=== PATIENT | female | born 1930 | race Caucasian/White ===

== ENCOUNTER 2017-10-18 21:50 | Inpatient (IN) | payer MEDICARE, MEDICAID ==
--- NOTE | 2017-10-18 22:14 | ED Physician Chart ---
ED Chief Complaint/HPI - Patient Information Date Seen:: 10/18/17 Time Seen:: 21:50 Chief Complaint:: Congestion History of Present Illness:: onset x one day of fever, cough, and congestion with low O2 Sats; no report of trauma, H/As, S/T, C/P, SOB, Abd. Pain, A/N/V/D/C, chills, or urinary s/s Allergies:: Allergies Allergy/AdvReac Type Severity Reaction Status Date / Time No Known Allergies Allergy Verified 08/27/17 22:59 Historian:: Patient, EMS Review:: Nurse's Note Reviewed, Old Chart Reviewed, EMS run form Reviewed ED Review of Systems - Review of Systems General/Constitutional: Fever, No chills, No weight loss, No weakness, No diaphoresis, No edema, No loss of appetite Skin: No skin lesions, No rash, No bruising Head: No headache, No light-headedness Eyes: No loss of vision, No pain, No diplopia ENT: No earache, No nasal drainage, No sore throat, No tinnitus Neck: No neck pain, No swelling, No thyromegaly, No stiffness, No mass noted Cardio Vascular: No chest pain, No palpitations, No PND, No orthopnea, No edema Pulmonary: SOB, Cough, No sputum, No wheezing GI: No nausea, No vomiting, No diarrhea, No pain, No melena, No hematochezia, No constipation, No hematemesis G/U: No dysuria, No frequency, No hematuria, No nacturia 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 discharge, Abnormal vaginal bleeding, No contraction Musculoskeletal: No bone or joint pain, No back pain, No muscle pain Endocrine: No polyuria, No polydipsia Psychiatric: No prior psych history, No depression, No anxiety, No suicidal ideation, No homicidal ideation, No auditory hallucination, No visual hallucination Hematopoietic: No bruising, No lymphadenopathy Allergic/Immuno: No urticaria, No angioedema Neurological: No syncope, No focal symptoms, No weakness, No paresthesia, No headache, No seizure, No dizziness, No confusion, No vertigo ED Past Medical History - Past Medical History Obtainable: Yes Past Medical History: HTN, Asthma/COPD, CVA/TIA, PUD/GERD Family History: Diabetes Melitus, HTN Social History: Non Smoker, No Alcohol, No Drug Use, Single, Care Facility Surgical History: None Psychiatricy History: None Medication: Reviewed Family Medical History - Family Member Mother History Unknown: Yes Ethnicity: Unknown Living Status: Hx Family Cancer: No Hx Family Coronary Artery Disease: No Hx Family Congestive Heart Failure: No Hx Family Hypertension: No Hx Family Stroke: No Hx Family Diabetes: No Hx Family Seizures: No Hx Family Dementia: No Hx Family AIDS: No Hx Family HIV: No Hx Family COPD: No Hx Family Hepatitis: No Hx Family Psychiatric Problems: No Hx Family Tuberculosis: No ED Physical Exam - Physical Examination General/Constitutional: Awake, Well-developed, well-nourished, Alert, No distress, GCS 15, Non-toxic appearing, Ambulatory Head: Atraumatic Eyes: Lids, conjuctiva normal, PERRL, EOMI Skin: Nl inspection, No rash, No skin lesions, No ecchymosis, Well hydrated, No lymphadenopathy ENMT: External ears, nose nl, TM canals nl, Nasal exam nl, Lips, teeth, gums nl , Oropharynx nl, Tonsils nl Neck: Nontender, Full ROM w/o pain, No JVD, No nuchal rigidity, No bruit, No mass, No stridor Respiratory: Nl effort/Exclusion Other Respiratory comments:: Lungs: + Rales and Rhonchi Cardio Vascular: RRR, No murmur, gallop, rubs, NL S1 S2, Carotid/Femoral/Distal pulses equal bilaterally GI: No tenderness/rebounding/guarding, No organomegaly, No hernia, Normal BS's, Nondistended, No mass/bruits, No McBurney tenderness : No CVA tenderness Extremities: No tenderness or effusion, Full ROM, normal strength in all extremities, No edema, Normal digits & nails Neuro/Psych: Alert/oriented, DTR's symmetric, Normal sensory exam, Normal motor strength, Judgement/insight normal, Mood normal, Normal gait, No focal deficits Misc: Normal back, No paraspinal tenderness ED Labs/Radiology/EKG Results - Lab Results Comments:: WBC: 41.1; H/H: + Anemia - Radiology Results Comments:: CXR: + LLL Infiltrate - EKG Interpretations EKG Time:: 22:04 Rate & Rhythm: 124; ST Comments:: non-specific st-t changes ED Septic Shock - . Is Septic Shock (SBP<90, OR Lactate>4 mmol\L) present?: No ED Reassessment (Disposition) - Reassessment Reassessment Condition:: Improved - Diagnosis Diagnosis:: Dx: Pneumonia; Sepsis; Cough; Congestion; Hypoxia; Hypotension; Dehydration; Leukocytosis; Anemi - Aftercare/Follow up Instructions Aftercare/Follow-Up Instructions:: Counseled pt regarding lab results/diagnosis & need follow up, Counseled pt & family regarding lab results/diagnosis & need follow up - Patient Disposition Discharge/Transfer:: Acute Care w/in this hosp Accepting Physician:: Dr. Mcneil Time Called:: [id number] Time Responded:: 22:30 Admitted to:: ICU Spoke to:: Dr. Mcneil Admitting Medical Physician:: Dr. cMneil Condition at Disposition:: Stable, Improved
[2017-10-18] MEDS ORDERED: Levofloxacin 500mg/100mL 500 MG/100 ML BAG IV ONE ×2 (22:15→22:16)
[2017-10-18] MEDS ORDERED: Sodium Chloride 0.9% 1,000 ML IV ONE (22:17)
[2017-10-18 22:21] LABS: HEMOGLOBIN 11.8 gm/dL (12-16); MEAN CELL VOLUME 87.9 fl (81-100); MEAN CORPUSCULAR HGB CONC 34.1 pg (28.0-36.0); MEAN PLATELET VOLUME 8.6 fl; RED BLOOD COUNT 3.92 Mil/cmm (3.80-5.20); RED CELL DISTRIBUTION WIDTH 15.2 % (11.5-20.0)
[2017-10-18 22:22] LABS: WHITE BLOOD COUNT 41.1 Th/cmm (4.8-10.8)
[2017-10-18 22:23] LABS: HEMATOCRIT 34.5 % (41.0-60); PLATELET COUNT 535 Th/cmm (150-400)
[2017-10-18 22:27] LABS: ALLEN TEST POSITIVE; pH 7.51 (7.35-7.45)
[2017-10-18 22:36] LABS: INR 1.1 (0.5-1.4); PROTHROMBIN TIME (TEST) 11.5 SECONDS (9.5-11.5)
[2017-10-18 22:42] LABS: ALB/GLOB RATIO 0.9 (1.0-1.8); ALBUMIN 3.4 gm/dL (3.7-5.3); ALKALINE PHOSPHATASE 66 U/L (34-104); AMYLASE SERUM 36 U/L (29-103); ANION GAP 17.3 (7.0-16.0); BILIRUBIN,TOTAL 0.7 mg/dL (0.3-1.0); BUN - UREA NITROGEN 76 mg/dL (7-25); CALCIUM SERUM 9.9 mg/dL (8.6-10.3); CARBON DIOXIDE 26.4 mEq/L (21.0-31.0); CHLORIDE 96 mEq/L (98-107); CHOLESTEROL 111 mg/dL (<200); CREATININE - SERUM 2.2 mg/dL (0.6-1.2); CREATININE KINASE 136 U/L (30-223); GLUCOSE 179 mg/dL (70-105); HDL -HIGH DENSITY LIPOPROTEIN 37 mg/dL (23-92); LIPASE 6 U/L (11-82); SGOT 19 U/L (13-39); SGPT/ALT 14 U/L (7-52); SODIUM SERUM 134 mEq/L (136-145); TRIGLYCERIDES 130 mg/dL (<150)
[2017-10-18 22:44] LABS: POTASSIUM SERUM 5.7 mEq/L (3.5-5.1)
[2017-10-18 22:50] LABS: TOTAL CELLS COUNTED 100
[2017-10-18 22:51] LABS: BAND NEUTROPHILE 13 % (0-10); LYMPHOCYTE 7 % (20-50); MONOCYTE 1 % (2-10); NEUTROPHILS 79 % (40-80); PLATELET ESTIMATE INCREASED PLATELETS (NORMAL)
[2017-10-19] MEDS ORDERED: Sodium Chloride 0.9% 1,000 ML IV ONE (01:14)
[2017-10-19] MEDS ORDERED: Albuterol Nebulizer 2.5mg/3mL HHN PRN (01:26)
[2017-10-19] MEDS ORDERED: Piperacillin Sodium/Tazobact 3.375 gm Vial IV ONE (02:02)
[2017-10-19] MEDS ORDERED: D5-0.45NS 1,000 ML IV SCH (04:00)
[2017-10-19 04:52] LABS: RED BLOOD COUNT 2.83 Mil/cmm (3.80-5.20)
[2017-10-19 05:07] LABS: ALBUMIN 2.4 gm/dL (3.7-5.3); ALKALINE PHOSPHATASE 42 U/L (34-104); ANION GAP 14.7 (7.0-16.0); BILIRUBIN,TOTAL 0.6 mg/dL (0.3-1.0); BUN - UREA NITROGEN 69 mg/dL (7-25); CARBON DIOXIDE 20.8 mEq/L (21.0-31.0); CHLORIDE 104 mEq/L (98-107); GLUCOSE 133 mg/dL (70-105); POTASSIUM SERUM 4.5 mEq/L (3.5-5.1); SGOT 16 U/L (13-39); SGPT/ALT 11 U/L (7-52); SODIUM SERUM 135 mEq/L (136-145); TOTAL PROTEIN,SERUM 4.9 gm/dL (6.0-8.3)
[2017-10-19 05:14] LABS: MEAN CELL VOLUME 89.4 fl (81-100); MEAN CORPUSCULAR HEMOGLOBIN 30.4 pg (27.0-31.0); MEAN PLATELET VOLUME 8.7 fl; RED CELL DISTRIBUTION WIDTH 15.1 % (11.5-20.0)
[2017-10-19 05:22] LABS: HEMATOCRIT 25.3 % (41.0-60); HEMOGLOBIN 8.6 gm/dL (12-16); WHITE BLOOD COUNT 19.8 Th/cmm (4.8-10.8)
[2017-10-19 05:23] LABS: PLATELET COUNT 323 Th/cmm (150-400)
[2017-10-19 07:20] LABS: BAND NEUTROPHILE 20 % (0-10); LYMPHOCYTE 5 % (20-50); MONOCYTE 2 % (2-10); NEUTROPHILS 73 % (40-80); PLATELET ESTIMATE ADEQUATE (NORMAL)
[2017-10-19 08:38] LABS: URINE MICROSCOPIC INDICATED? YES; URINE SOURCE RANDOM
--- NOTE | 2017-10-19 08:40 | Diagnostic Imaging Report ---
Portable chest x-ray HISTORY: Shortness of breath Compared with a prior exam of August 31, 2017, persistent infiltrate noted in the left lower lobe. Changes may be chronic. However, pneumonia cannot be definitely excluded. Clinical correlation is needed. Faint linear densities noted in the right lower lobe suggesting areas of subsegmental atelectasis. The overall heart size appears normal. Atherosclerotic calcination seen throughout the aorta. IMPRESSION: 1. Infiltrate left lower lobe. Changes may be chronic. However, pneumonia cannot be excluded. Clinical correlation is needed. 2. Faint linear densities within the right lower lobe suggesting areas of subsegmental atelectasis 3. Atherosclerotic vascular changes
--- NOTE | 2017-10-19 08:42 | Diagnostic Imaging Report ---
Portable chest x-ray HISTORY: Shortness of breath, sepsis Compared with the prior exam of October 18, 2017, there is developed increasing infiltrate within the left lower lobe along with evidence of a left pleural effusion. Findings are consistent with pneumonia. Clinical correlation is needed. IMPRESSION: 1. Worsening pulmonary status with increasing infiltrate within the left lower lobe along with evidence for left pleural effusion. Findings are consistent with pneumonia. Clinical correlation is needed.
[2017-10-19 08:54] LABS: URINE BILIRUBIN NEGATIVE (NEGATIVE); URINE BLOOD MODERATE (NEGATIVE); URINE GLUCOSE (UA) NEGATIVE (NEGATIVE); URINE KETONE NEGATIVE (NEGATIVE); URINE LEUKOCYTE ESTERASE LARGE (NEGATIVE); URINE NITRATE NEGATIVE (NEGATIVE); URINE PH 8.5 (4.6 - 8.0); URINE PROTEIN >=300 mg/dL (NEGATIVE); URINE UROBILINOGEN 0.2 E.U./dL (0.2 - 1.0)
[2017-10-19 09:02] LABS: URINE CLARITY CLOUDY (CLEAR); URINE COLOR YELLOW
[2017-10-19 09:03] LABS: URINE WBC >100 /hpf (0-5)
[2017-10-19 09:04] LABS: URINE BACTERIA MANY /hpf (NONE SEEN); URINE EPITHELIAL CELLS OCCASIONAL /lpf (FEW)
[2017-10-19 09:41] LABS: pH 7.46 (7.35-7.45)
[2017-10-19 09:42] LABS: ALLEN TEST YES
[2017-10-19] MEDS ORDERED: Albumin 25% 25gm/100mL 25 GM/100 ML BTL IV ONE ×2 (12:23→12:28)
--- NOTE | 2017-10-19 14:30 | Consultation ---
Consult Note - Consult Note Service Date: 10/19/17 Referring Physician: Colleen Mcneil Consult Note: PHYSICIAN Consultation Note: Date of Admission: 10/18/17 Purpose of Consultation: Sepsis. Chief Complaint: Patient LEBRON GÓMEZ was admitted to location Intensive Care Unit with SEPSIS,PNEUMONIA. History of Present Illness: 87 year year-old female with a past medical history of dementia, COPD, cachexia fever, cough and congestion. She was hypoxic. On initial evaluation, her temperature was 98.1F and WBC count was 41,000. Patient was hypotensive. She was given fluid boluses. He was admitted to the ICU. As she remained hypotensive, and her lactic acid was also elevated. She had been started on Levophed drip at rate of 8 mcg/m. Zosyn was started. Patient has received vancomycin and Levaquin in the ER. ID consult was called for antibiotic management. Past Medical History: Dementia, COPD, cachexia, hypertension, asthma, GERD, peptic ulcer disease. Allergies Allergy/AdvReac Type Severity Reaction Status Date / Time No Known Allergies Allergy Verified 08/27/17 22:59 Vital Signs Temp 100.0 F 10/19/17 07:57 Pulse 98 10/19/17 14:00 Resp 23 10/19/17 14:00 BP 105/50 10/19/17 14:00 Pulse Ox 100 10/19/17 14:00 Intake & Output 10/18/17 10/19/17 10/19/17 18:59 06:59 18:59 Intake Total 150 Output Total 1290 Balance 150 -1290 Weight (lbs) 53.025 kg Intake: Intake, IV Amount 150 Levofloxacin 500mg/100mL 100 500 mg In 100 ml @ 100 mls/hr IV X1 ONE Rx#: [id number] Piperacillin Sodium/ 50 Tazobact 3.375 gm In Sodium Chloride 0.9% 50 ml @ 100 mls/hr IV Q8H [facility] Rx#:[id number] Output: Urine 1290 Other: Stool Characteristics Soft Brown Laboratory Results - last 24 hr 10/18/17 10/19/17 10/19/17 23:58 04:40 04:40 WBC 19.8 H D RBC 2.83 L Hgb 8.6 L D Hct 25.3 L D MCV 89.4 MCH 30.4 MCHC Differential 34.0 RDW 15.1 Plt Count 323 D MPV 8.7 Band Neutrophils % 20 H Neutrophils (Manual) 73 Lymphocytes 5 L Monocytes 2 Platelet Estimate ADEQUATE Specimen Source Sample Site pH pCO2 pO2 HCO3 Base Excess O2 Saturation Vasquez Test Vent Rate Inspired O2 Tidal Volume PEEP Pressure (ins/psv/peep) Critical Value Sodium 135 L Potassium 4.5 Chloride 104 Carbon Dioxide 20.8 L Anion Gap 14.7 BUN 69 H Creatinine 2.0 H Est GFR ( Amer) TNP Est GFR (Non-Af Amer) TNP BUN/Creatinine Ratio 34.5 Glucose 133 H Whole Bld Lactic Acid 6.66 H* Calcium 8.0 L Total Bilirubin 0.6 AST 16 ALT 11 Alkaline Phosphatase 42 Total Protein 4.9 L Albumin 2.4 L Globulin 2.5 Albumin/Globulin Ratio 1.0 TSH Urine Source Urine Color Urine Clarity Urine pH Ur Specific [place] Urine Protein Urine Glucose (UA) Urine Ketones Urine Blood Urine Nitrate Urine Bilirubin Urine Urobilinogen Ur Leukocyte Esterase Urine RBC Urine WBC Ur Epithelial Cells Urine Bacteria 10/19/17 10/19/17 10/19/17 04:40 04:40 06:30 WBC RBC Hgb Hct MCV MCH MCHC Differential RDW Plt Count MPV Band Neutrophils % Neutrophils (Manual) Lymphocytes Monocytes Platelet Estimate Specimen Source Sample Site pH pCO2 pO2 HCO3 Base Excess O2 Saturation Vasquez Test Vent Rate Inspired O2 Tidal Volume PEEP Pressure (ins/psv/peep) Critical Value Sodium Potassium Chloride Carbon Dioxide Anion Gap BUN Creatinine Est GFR ( Amer) Est GFR (Non-Af Amer) BUN/Creatinine Ratio Glucose Whole Bld Lactic Acid 3.63 H* Calcium Total Bilirubin AST ALT Alkaline Phosphatase Total Protein Albumin Globulin Albumin/Globulin Ratio TSH 4.53 Urine Source RANDOM Urine Color YELLOW Urine Clarity CLOUDY H Urine pH 8.5 Ur Specific [place] 1.015 Urine Protein >=300 Urine Glucose (UA) NEGATIVE Urine Ketones NEGATIVE Urine Blood MODERATE H Urine Nitrate NEGATIVE Urine Bilirubin NEGATIVE Urine Urobilinogen 0.2 Ur Leukocyte Esterase LARGE H Urine RBC 10-25 H Urine WBC >100 H Ur Epithelial Cells OCCASIONAL Urine Bacteria MANY H 10/19/17 10/19/17 07:30 09:34 WBC RBC Hgb Hct MCV MCH MCHC Differential RDW Plt Count MPV Band Neutrophils % Neutrophils (Manual) Lymphocytes Monocytes Platelet Estimate Specimen Source Arterial Sample Site Left Radial pH 7.46 H pCO2 29.0 L pO2 64.0 L HCO3 23.1 Base Excess -2.2 O2 Saturation 93.0 Vasquez Test YES Vent Rate NA Inspired O2 100 Tidal Volume NA PEEP NA Pressure (ins/psv/peep) NA Critical Value E.QUICK Sodium Potassium Chloride Carbon Dioxide Anion Gap BUN Creatinine Est GFR ( Amer) Est GFR (Non-Af Amer) BUN/Creatinine Ratio Glucose Whole Bld Lactic Acid 3.67 H* Calcium Total Bilirubin AST ALT Alkaline Phosphatase Total Protein Albumin Globulin Albumin/Globulin Ratio TSH Urine Source Urine Color Urine Clarity Urine pH Ur Specific [place] Urine Protein Urine Glucose (UA) Urine Ketones Urine Blood Urine Nitrate Urine Bilirubin Urine Urobilinogen Ur Leukocyte Esterase Urine RBC Urine WBC Ur Epithelial Cells Urine Bacteria Home Medication Medication Instructions Recorded Type Acetaminophen [Acetaminophen Extra 500 mg GT Q4HR PRN 08/27/17 History Strength] Acetaminophen [Tylenol] 325 mg GT Q4HR PRN 08/27/17 History Bisacodyl [Dulcolax 10 Mg Supp] 10 mg RC DAILY PRN 08/27/17 History Clonazepam [Klonopin] 0.5 mg GT DAILY 08/27/17 History Docusate Sodium [Colace] 100 mg GT BID 08/27/17 History Donepezil Hcl [Aricept] 5 mg PO DAILY 08/27/17 History Fleet Enema 135 ml RC DAILY PRN 08/27/17 History Memantine [Namenda] 10 mg PO BID 08/27/17 History Metoprolol Succinate 25 mg PO DAILY 08/27/17 History Omeprazole 40 mg PO DAILY 08/27/17 History Ondansetron [Zofran Odt] 4 mg GT Q6HR 08/27/17 History carBAMazepine [TEGretol] 200 mg GT BID 08/27/17 History Magnesium Hydroxide [Milk of 30 ml GT HS PRN 10/18/17 History Magnesia] Multivitamin w/ Minerals 15 ml GT DAILY 10/18/17 History [Theragran M] Vit C/Ascorbate Ca/Ascorb Sod 500 mg GT DAILY 10/18/17 History [Vitamin C 500 mg/15 ml Liquid] Current Medications Generic Name Dose Route Start Last Admin Trade Name Freq PRN Reason Stop Dose Admin Acetaminophen 650 mg 10/19/17 02:16 Tylenol PO 12/18/17 02:15 Q6H PRN Pain or Fever >101 Albuterol Sulfate 2.5 mg 10/19/17 01:26 Albuterol 2.5mg/3ml Neb Ud HHN 12/18/17 01:25 Q4H PRN Wheezing Dextrose/Sodium Chloride 1,000 mls @ 100 mls/hr 10/19/17 04:00 10/19/17 06:44 D5-0.45ns IV 12/18/17 03:59 100 mls/hr .Q10H EZEKIEL Administration Piperacillin Sod/Tazobactam 50 mls @ 100 mls/hr 10/19/17 02:00 10/19/17 10:27 Sod 3.375 gm/ Sodium Chloride IV 12/18/17 01:59 100 mls/hr Q8H EZEKIEL Administration Norepinephrine Bitartrate 4 mg 254 mls @ 30.48 mls/hr 10/19/17 12:12 14:00 / Dextrose IV 12/18/17 12:11 8 mcg/min TITR PRN 30.48 mls/hr BP MAINTENANCE (PER PROTOCOL) Administration Protocol 8 MCG/MIN Albumin Human 25 gm in 100 mls @ 50 mls/hr 10/19/17 12:23 10/19/17 12:57 Albuminar 25% IV 10/19/17 14:22 50 mls/hr X1 ONE Administration Miscellaneous 1 10/19/17 01:11 Vancomycin Iv Per Pharmacy 12/18/17 01:10 PRN PRN PROTOCOL Miscellaneous 1 10/19/17 12:34 Clinical Monitoring 12/18/17 12:33 PRN PRN RENAL Review of Systems: A 12 point ROS was reviewed with the pertinent positive and negatives noted in the HPI. Social History Smoking Status Unknown if ever smoked Family Medical History Diabetes mellitus type 2 hypertension. Physical Exam: General: Cachectic, not in acute distress. Patient is on BiPAP. HEENT: Head: Normocephalic, atraumatic. Oral cavity: Moist, pink tongue. Eyes : Pallor is present icterus. Pupils PERRLA. Neck: Supple, no JVD, no thyromegaly. No use of accessory neck muscles. Cardio: S1 and S2 within normal limits regular rhythm no murmur or gallop. Respiratory: Vesicular breath sound, no crackles. No wheezing. Abdominal: Soft, nontender, nondistended, bowel sounds present Genital/Urinary: Deferred Extremities: No cyanosis, no clubbing, no edema. Neurological: Confused. Assessment: 1. Sepsis. Septic shock. Severe sepsis. Lactic acidemia. 2. Hypotension, multifactorial including sepsis and cardiogenic. 3. UTI, complicated. 4. Pneumonia. 5. Altered mental status. Multifactorial. 6. Respiratory failure. On BiPAP. 7. Dementia. 8. Protein calorie malnutrition. 9. Acute failure. Plan: Continue Zosyn. Add doxycycline. Thank you Dr. Mcneil for involving me in taking care of this patient. Signed, Luke Villalba M.D. [id number]/19/[id number]
[2017-10-19] MEDS ORDERED: Probiotic Screen MC PRN (16:26)
--- NOTE | 2017-10-19 16:57 | Consultation ---
DATE OF CONSULTATION: 10/19/2017 REASON FOR CONSULTATION: Electrolyte imbalance, fluid management and worsening kidney function. HISTORY OF PRESENT ILLNESS: This is an 87-year-old female with past medical history of CVA, who came in because of fever. A few hours prior to admission, patient had episodes of vomiting. Her G-tube feedings were held. She eventually developed fever. She was sent to the Emergency Room. Her temperature at the Emergency Room was 98.1 degrees, with a pulse of 123. Her white count was 41.1 with the lactic acid of 6.66. Her chest x-ray revealed progression of left lower lobe infiltrate with effusion. She received boluses of IV fluids, but poor response. She was then started on Levophed. She had a BUN/creatinine of 76/2.2 on admission and now her BUN/creatinine were 69/2. Potassium came down from 5.7 to 4.5. There was no history of diarrhea. PAST MEDICAL HISTORY: 1. Status post cerebrovascular accident. 2. Dementia with behavioral disturbance. 3. Epilepsy. 4. Failure to thrive. 5. Essential hypertension. 6. Peptic ulcer disease. 7. History of staph bacteremia. 8. COPD/bronchial asthma. PAST SURGICAL HISTORY: Status post PEG placement. CURRENT MEDICATIONS: She is currently on acetaminophen, levofloxacin, vancomycin, and Zosyn. ALLERGIES: No known drug allergies. SOCIAL AND FAMILY HISTORY: I was unable to obtain directly from the patient because she is currently on a BiPAP. REVIEW OF SYSTEMS: Again, I was unable to decipher directly from the patient because of her current mental, clinical, and respiratory status. PHYSICAL EXAMINATION: GENERAL: The patient is stuporous on a BiPAP with mild to moderate respiratory distress. VITAL SIGNS: Her blood pressure 105/58, pulse 98, afebrile. SKIN: Poor turgor, warm, no rash, no jaundice appreciated. HEENT: Head normocephalic, atraumatic. Eyes: Extraocular muscles intact. Pupils equal, round, reactive to light and accommodates. Anicteric sclerae. Pale conjunctivae. Nose, midline nasal septum. Mouth: Dry mucosa. Poor dentition. NECK: Supple, no adenopathy, no thyromegaly, no bruits. Trachea palpated in the midline. CHEST AND CVS: Irregularly irregular, tachycardic, S1, S2. No rub, murmur or gallop appreciated. Point of maximal impulse fifth intercostal space, left midclavicular line. No abdominal or femoral bruits appreciated. LUNGS: Equal expansion, minimal to moderate use of accessory muscles. No supraclavicular retractions, scattered rhonchi with minimal rales, but no wheezes appreciated. BREASTS: Symmetrical, without any discharge. ABDOMEN: Flat, soft. Positive for bowel sounds. No bruits either diastolic or systolic. RECTAL: Deferred. GENITOURINARY: Normal appearing female genitalia with indwelling Valente catheter. MUSCULOSKELETAL: No effusions present in her joints, but unable to assess her range of motion. EXTREMITIES: No evidence of edema, cyanosis, or clubbing with palpable femoral, but unable to fully appreciate popliteal and dorsalis pedis pulses. NEUROLOGIC: The patient remains stuporous, so I was unable to pursue further my neuro exam. LABORATORY DATA: Did reveal sodium 135, potassium 4.5, chloride 104, bicarbonate 20, BUN 69, creatinine 2, glucose 133, calcium 8, albumin 2.4. White count 19.8, hemoglobin 8.6, hematocrit 25.3, platelets 323, polys 20%. IMPRESSION: 1. Acute kidney injury. The patient has a history of vomiting. Her G-tube feedings had been held. She came in septic shock. She also has ongoing severe malnutrition. Physical exam revealed poor skin turgor with dry oral mucosa. These factors and examinations confirm the possibility of dehydration as well as a decrease in effective circulating volume. Her prerenal azotemia with all these factors could progress to acute tubular injury. She also has overwhelming sepsis and the possibility of a UTI. Thus, we should also entertain presence of acute interstitial nephritis. 2. Shock, septic in nature. 3. Sepsis, possibly aspiration pneumonia with recent history of vomiting or healthcare-acquired pneumonia. Her urinalysis is also suggestive of underlying complicated urinary tract infection. 4. Acute respiratory failure on BiPAP secondary to health-care acquired pneumonia with possibly underlying chronic obstructive pulmonary disease. 5. Lactic acidosis type A due to sepsis. 6. Severe malnutrition. 7. Status post cerebrovascular accident. 8. Dementia with behavioral disturbance. 9. Epilepsy. 10. Peptic ulcer disease. 11. COPD/bronchial asthma. PLAN: 1. Continue on IV fluids. 2. Continue with pressors. 3. Marshall culture including urine. 4. Urine sodium, eosinophils, and creatinine. 5. Urine microalbumin to creatinine ratio. 6. Renal ultrasound. Thank you Dr. Mcneil for this consult. I will follow the patient closely with you. JOB# [id number]
--- NOTE | 2017-10-19 17:37 | History and Physical ---
History of Present Illness - HPI Chief Complaint: weakness, congestion, fever , vomiting HPI: This is a 87 year old female who is a resident of [facility] who is now admitted to the ICU unit. According to charge nurse at [facility] patient was noted to have a fever, congested. In the ER patient was noted to have a elevated wbc of 41 and was found to be hypotensive. Patient is now in the icu on levophed on 8mcg/min and on bipap. e Vital Signs: Last Vital Signs Temp 100.0 F 10/19/17 07:57 Pulse 99 10/19/17 15:15 Resp 26 10/19/17 16:48 BP 127/60 10/19/17 15:15 Pulse Ox 97 10/19/17 16:48 Past Medical History Other History: Dementia, COPD, cachexia, hypertension, asthma, GERD, peptic ulcer disease. Family Medical History - Family Member Mother History Unknown: Yes Ethnicity: Unknown Living Status: Hx Family Cancer: No Hx Family Coronary Artery Disease: No Hx Family Congestive Heart Failure: No Hx Family Hypertension: No Hx Family Stroke: No Hx Family Diabetes: No Hx Family Seizures: No Hx Family Dementia: No Hx Family AIDS: No Hx Family HIV: No Hx Family COPD: No Hx Family Hepatitis: No Hx Family Psychiatric Problems: No Hx Family Tuberculosis: No Social History Smoke: No Alcohol: None Drugs: None Lives: [facility] - Medications Home Medications: Home Medication Medication Instructions Recorded Type Acetaminophen [Acetaminophen Extra 500 mg GT Q4HR PRN 08/27/17 History Strength] Acetaminophen [Tylenol] 325 mg GT Q4HR PRN 08/27/17 History Bisacodyl [Dulcolax 10 Mg Supp] 10 mg RC DAILY PRN 08/27/17 History Clonazepam [Klonopin] 0.5 mg GT DAILY 08/27/17 History Docusate Sodium [Colace] 100 mg GT BID 08/27/17 History Donepezil Hcl [Aricept] 5 mg PO DAILY 08/27/17 History Fleet Enema 135 ml RC DAILY PRN 08/27/17 History Memantine [Namenda] 10 mg PO BID 08/27/17 History Metoprolol Succinate 25 mg PO DAILY 08/27/17 History Omeprazole 40 mg PO DAILY 08/27/17 History Ondansetron [Zofran Odt] 4 mg GT Q6HR 08/27/17 History carBAMazepine [TEGretol] 200 mg GT BID 08/27/17 History Magnesium Hydroxide [Milk of 30 ml GT HS PRN 10/18/17 History Magnesia] Multivitamin w/ Minerals 15 ml GT DAILY 10/18/17 History [Theragran M] Vit C/Ascorbate Ca/Ascorb Sod 500 mg GT DAILY 10/18/17 History [Vitamin C 500 mg/15 ml Liquid] - Allergies Allergies/Adverse Reactions: Allergies Allergy/AdvReac Type Severity Reaction Status Date / Time No Known Allergies Allergy Verified 08/27/17 22:59 Review of Systems - Review of Systems Constitutional: Report: Weakness Eyes: Report: No Significant Respiratory: Report: Shortness of Breath Cardiovascular: Report: No Significant Neurological: Report: Weakness Physical Exam - Physical Exam HEENT: Report: Ears Nose Throat within normal limits Neck: Report: Within normal limits Cardiovascular Systems: Report: +s1/s2 noted, Regular, Rate and Rhythm Respiratory: Report: Rhonchi Abdomen: Report: Non-tender to palpation Skin: Report: Color of skin is within normal limits Neuro/Psych: Report: Weakness or sensory loss noted. Other Systems Exam: . - Lab Results All Lab Results last 24 hours: Laboratory Results - last 24 hr 10/18/17 10/19/17 10/19/17 23:58 04:40 04:40 WBC 19.8 H D RBC 2.83 L Hgb 8.6 L D Hct 25.3 L D MCV 89.4 MCH 30.4 MCHC Differential 34.0 RDW 15.1 Plt Count 323 D MPV 8.7 Band Neutrophils % 20 H Neutrophils (Manual) 73 Lymphocytes 5 L Monocytes 2 Platelet Estimate ADEQUATE Specimen Source Sample Site pH pCO2 pO2 HCO3 Base Excess O2 Saturation Vasquez Test Vent Rate Inspired O2 Tidal Volume PEEP Pressure (ins/psv/peep) Critical Value Sodium 135 L Potassium 4.5 Chloride 104 Carbon Dioxide 20.8 L Anion Gap 14.7 BUN 69 H Creatinine 2.0 H Est GFR ( Amer) TNP Est GFR (Non-Af Amer) TNP BUN/Creatinine Ratio 34.5 Glucose 133 H Whole Bld Lactic Acid 6.66 H* Calcium 8.0 L Total Bilirubin 0.6 AST 16 ALT 11 Alkaline Phosphatase 42 Total Protein 4.9 L Albumin 2.4 L Globulin 2.5 Albumin/Globulin Ratio 1.0 TSH Urine Source Urine Color Urine Clarity Urine pH Ur Specific [place] Urine Protein Urine Glucose (UA) Urine Ketones Urine Blood Urine Nitrate Urine Bilirubin Urine Urobilinogen Ur Leukocyte Esterase Urine RBC Urine WBC Ur Epithelial Cells Urine Bacteria 10/19/17 10/19/17 10/19/17 04:40 04:40 06:30 WBC RBC Hgb Hct MCV MCH MCHC Differential RDW Plt Count MPV Band Neutrophils % Neutrophils (Manual) Lymphocytes Monocytes Platelet Estimate Specimen Source Sample Site pH pCO2 pO2 HCO3 Base Excess O2 Saturation Vasquez Test Vent Rate Inspired O2 Tidal Volume PEEP Pressure (ins/psv/peep) Critical Value Sodium Potassium Chloride Carbon Dioxide Anion Gap BUN Creatinine Est GFR ( Amer) Est GFR (Non-Af Amer) BUN/Creatinine Ratio Glucose Whole Bld Lactic Acid 3.63 H* Calcium Total Bilirubin AST ALT Alkaline Phosphatase Total Protein Albumin Globulin Albumin/Globulin Ratio TSH 4.53 Urine Source RANDOM Urine Color YELLOW Urine Clarity CLOUDY H Urine pH 8.5 Ur Specific [place] 1.015 Urine Protein >=300 Urine Glucose (UA) NEGATIVE Urine Ketones NEGATIVE Urine Blood MODERATE H Urine Nitrate NEGATIVE Urine Bilirubin NEGATIVE Urine Urobilinogen 0.2 Ur Leukocyte Esterase LARGE H Urine RBC 10-25 H Urine WBC >100 H Ur Epithelial Cells OCCASIONAL Urine Bacteria MANY H 10/19/17 10/19/17 07:30 09:34 WBC RBC Hgb Hct MCV MCH MCHC Differential RDW Plt Count MPV Band Neutrophils % Neutrophils (Manual) Lymphocytes Monocytes Platelet Estimate Specimen Source Arterial Sample Site Left Radial pH 7.46 H pCO2 29.0 L pO2 64.0 L HCO3 23.1 Base Excess -2.2 O2 Saturation 93.0 Vasquez Test YES Vent Rate NA Inspired O2 100 Tidal Volume NA PEEP NA Pressure (ins/psv/peep) NA Critical Value E.QUICK Sodium Potassium Chloride Carbon Dioxide Anion Gap BUN Creatinine Est GFR ( Amer) Est GFR (Non-Af Amer) BUN/Creatinine Ratio Glucose Whole Bld Lactic Acid 3.67 H* Calcium Total Bilirubin AST ALT Alkaline Phosphatase Total Protein Albumin Globulin Albumin/Globulin Ratio TSH Urine Source Urine Color Urine Clarity Urine pH Ur Specific [place] Urine Protein Urine Glucose (UA) Urine Ketones Urine Blood Urine Nitrate Urine Bilirubin Urine Urobilinogen Ur Leukocyte Esterase Urine RBC Urine WBC Ur Epithelial Cells Urine Bacteria Microbiology 10/19/17 09:40 Gram Stain - Final Sputum - Expectorated Sputum Sputum Culture - Final - Assessment Assessment: Sepsis with septic shock hypotension acute uti pneumonia altered mental status Acute respiratory failure dementia Protein calorie malnutrition - Plan Plan: id consult nephrology consultation pulmonary consultation titrate levophed as per protocol follow up labs in am continue current orders
[2017-10-19] MEDS: D5-0.9%NS 1,000 ML IV SCH (17:58)
[2017-10-19 20:53] VITALS: BP 102/68
--- NOTE | 2017-10-20 00:49 | Consultation ---
DATE OF CONSULTATION: 10/19/2017 PATIENT OF: Dr. Mcneil HISTORY AND PHYSICAL: This is an 87-year-old female patient brought in from [facility] with respiratory failure, hypotension, septic shock. The patient is on BiPAP at the present time. The patient is started on Levophed and cardiology consult is requested. PAST MEDICAL HISTORY: Iron deficiency anemia, epilepsy, COPD, CVA with late effect, protein calorie malnutrition, peptic ulcer disease. FAMILY HISTORY: Unremarkable. SOCIAL HISTORY: No history of smoking or alcohol abuse. ALLERGIES: None. PHYSICAL EXAMINATION: VITAL SIGNS: Blood pressure 90 systolic, on Levophed, pulse 100, respiration 20 on BiPAP. HEAD: Normocephalic. No lumps or bumps. EYES: Pupils equal, reactive to light. Fundi showing nicking. Sclerae white, conjunctivae pink. NECK: Carotid 2+. Normal upstroke. JVD 10 cm above sternal angle. Thyroid not palpable. Lymph nodes not palpable. CHEST: Shows increased AP diameter. No kyphosis, scoliosis. LUNGS: Bilateral rales. Decreased breath sounds both the bases. HEART: PMI sixth intercostal space with lateral to midclavicular line. S1, S2, S3, S4. ABDOMEN: Soft. Liver, spleen not palpable. No organomegaly. Bowel sounds active. NEUROLOGIC: No focal neurological deficit. EXTREMITIES: Peripheral pulses 1+. No pedal edema. CLINICAL IMPRESSION: Acute respiratory failure, on BiPAP, septic shock, hypotension, iron deficiency anemia, lactic acidosis, epilepsy, Staphylococcus septicemia, chronic obstructive pulmonary disease, cerebrovascular accident with late effect, severe protein calorie malnutrition, peptic ulcer disease, acute renal failure, and urinary tract infection. PLAN: The patient to have fluid challenge Levophed, IV antibiotics. Renal consult, ID consult. JOB# [id number]
--- NOTE | 2017-10-20 01:11 | Progress Notes ---
DATE: 10/19/2017 PULMONARY PROGRESS NOTE SERVICE: Intensive care unit. REASON FOR CONSULTATION: Respiratory failure. CONSULT NOTE: This is an 87-year-old female, convalescent home resident, basically very little of history from the patient could be obtained and the patient is basically admitted up here with weakness, coughing, fever, vomiting at [facility] and subsequently the patient was initially hypotensive and shortness of breath with lot of "congestion". The patient was admitted to ICU for further care and necessary treatment. Unfortunately, meaningful patient's history is not available to me at this particular time. History of possible Alzheimer, dysphagia, has contracture fractures with possibly dysphagia as well as aphasia, and also history of being ____. Meaningful history from the patient is very difficult to non-obtainable at this particular time. PHYSICAL EXAMINATION: GENERAL: This is an elderly looking female, blinks eyes, but no verbal commands communication. VITAL SIGNS: Temperature is 96, heart rate is 110-115, blood pressure is 99-45, respiration currently on a BiPAP at 80% saturation in 80s. HEENT: Examination of the head is essentially unremarkable. Pupils appear to be equal and reacting to light. Conjunctivae are slightly pallor. Oral cavity, limited exam, appears to be edentulous. Throat is sore throat or dry mouth, otherwise unremarkable. NECK: Hyper extended and no palpable nodes in the neck could be palpated. CHEST: Shows slightly dorsal kyphosis and on auscultation there is occasional rhonchi with generalized diminished air entry with some secretory noise. HEART: Sounds Distant. Otherwise, unremarkable. ABDOMEN: Shows G-tube, otherwise unremarkable. EXTREMITIES: Shows all the 4 extremities with flexion and contraction. LABORATORY DATA: Chest x-ray shows some interstitial changes in the right base with possible infiltrate effusion on the left side. Other laboratory studies: White count is 41,000, which has dropped to 19,000. Hemoglobin 9.4. Blood gases currently on 100% of oxygen was pO2 44. Electrolytes, the patient's sodium is 135, creatinine is 2, BUN is 69, lactic acid 3.67 and BNP is 275. IMPRESSION: 1. The patient has acute respiratory failure, sepsis. primary consideration source is not clear as the patient has multiple decubitus pressure sore including lung and urinary tract infection cannot be 100% ruled out. 2. Significant dementia with flexion contraction with respiratory failure, hypoxemic. PLANS AND SUGGESTIONS: We will go ahead and continue BiPAP for now. Multisource of cultures and empirical antibiotic. We will give mild fluid challenge and see how she does next 24-48 hours and go from there. JOB# [id number]
[2017-10-20] MEDS: Albuterol/Ipratropium Neb 3 ML AERS HHN SCH ×6 (03:22→22:36)
[2017-10-20 04:49] LABS: MEAN CELL VOLUME 89.5 fl (81-100); MEAN CORPUSCULAR HGB CONC 33.5 pg (28.0-36.0); MEAN PLATELET VOLUME 8.4 fl; MONOCYTE ABSOLUTE 0.3 Th/cmm (0.3-1.0); NEUTROPHILE ABSOLUTE 14.1 Th/cmm (1.8-8.0); PLATELET COUNT 273 Th/cmm (150-400); RED BLOOD COUNT 2.39 Mil/cmm (3.80-5.20); RED CELL DISTRIBUTION WIDTH 15.3 % (11.5-20.0)
[2017-10-20 05:09] LABS: HEMATOCRIT 21.4 % (41.0-60); HEMOGLOBIN 7.2 gm/dL (12-16); WHITE BLOOD COUNT 15.4 Th/cmm (4.8-10.8)
[2017-10-20 05:56] LABS: ALB/GLOB RATIO 0.9 (1.0-1.8); ALBUMIN 2.6 gm/dL (3.7-5.3); ALKALINE PHOSPHATASE 34 U/L (34-104); ANION GAP 11.4 (7.0-16.0); BILIRUBIN,TOTAL 0.5 mg/dL (0.3-1.0); BUN - UREA NITROGEN 43 mg/dL (7-25); CALCIUM SERUM 8.6 mg/dL (8.6-10.3); CARBON DIOXIDE 21.9 mEq/L (21.0-31.0); CHLORIDE 113 mEq/L (98-107); CREATININE - SERUM 0.7 mg/dL (0.6-1.2); GLUCOSE 161 mg/dL (70-105); MAGNESIUM 2.1 mg/dL (1.9-2.7); POTASSIUM SERUM 3.3 mEq/L (3.5-5.1); SGOT 19 U/L (13-39); SGPT/ALT 13 U/L (7-52); SODIUM SERUM 143 mEq/L (136-145); TOTAL PROTEIN,SERUM 5.4 gm/dL (6.0-8.3); URIC ACID 4.1 mg/dL (2.3-6.6)
[2017-10-20 06:07] LABS: BAND NEUTROPHILE 36 % (0-10); EOSINOPHIL 1 % (0-5); LYMPHOCYTE 7 % (20-50); MONOCYTE 4 % (2-10); NEUTROPHILS 52 % (40-80); TOTAL CELLS COUNTED 100
[2017-10-20 06:08] LABS: HYPOCHROMIA 1+; PLATELET ESTIMATE ADEQUATE (NORMAL)
[2017-10-20] MEDS: D5-0.9%NS 1,000 ML IV SCH (06:25)
[2017-10-20] MEDS: Budesonide 0.5 Mg/2 mL Ud HHN SCH ×2 (06:49→19:02)
--- NOTE | 2017-10-20 08:35 | Diagnostic Imaging Report ---
Renal ultrasound HISTORY: Abnormal renal function test The right kidney measures 11.6 x 4.0 x 5.6 cm. No focal lesions. No hydronephrosis. The left kidney measures 11.9 x 5.2 x 5.5 cm. A 2.9 cm sonolucent focus consistent with a cyst noted in the lower pole. No hydronephrosis. The urinary bladder cannot be well evaluated due to lack of distention. IMPRESSION: 1. Findings consistent with a left renal cyst 2. No hydronephrosis
--- NOTE | 2017-10-20 08:40 | Diagnostic Imaging Report ---
Portable chest x-ray HISTORY: Pneumonia Compared with prior exam of October 19, 2017, persistent infiltrate is noted through much of the left lung with more focal density in the left lower hemithorax that may also reflect pleural fluid. There is developed hazy infiltrate within the right mid and lower lung regions. IMPRESSION: 1. New infiltrate within the right mid and lower lung regions. 2. Persistent infiltrate within the left lung. Question left pleural effusion.
[2017-10-20] MEDS: carBAMazepine 200 mg/10 mL UDC GT SCH ×2 (08:59→16:54)
[2017-10-20 09:29] LABS: pH 7.39 (7.35-7.45)
[2017-10-20] MEDS ORDERED: D5-0.9%NS 1,000 ML IV SCH (13:47)
--- NOTE | 2017-10-20 13:47 | General Progress Note ---
Subjective - Review of Systems Service Date: 10/20/17 Subjective: stuporous, on BIPAP Objective - Results Result Diagrams: 10/20/17 04:10 10/20/17 04:10 Recent Labs: Laboratory Last Values WBC 15.4 Th/cmm (4.8-10.8) H D 10/20/17 04:10 RBC 2.39 Mil/cmm (3.80-5.20) L 10/20/17 04:10 Hgb 7.2 gm/dL (12-16) L* 10/20/17 04:10 Hct 21.4 % (41.0-60) L D 10/20/17 04:10 MCV 89.5 fl (81-100) 10/20/17 04:10 MCH 30.0 pg (27.0-31.0) 10/20/17 04:10 MCHC Differential 33.5 pg (28.0-36.0) 10/20/17 04:10 RDW 15.3 % (11.5-20.0) 10/20/17 04:10 Plt Count 273 Th/cmm (150-400) 10/20/17 04:10 MPV 8.4 fl 10/20/17 04:10 Band Neutrophils % 36 % (0-10) H 10/20/17 04:10 Neutrophils (Manual) 52 % (40-80) 10/20/17 04:10 Lymphocytes 7 % (20-50) L 10/20/17 04:10 Monocytes 4 % (2-10) 10/20/17 04:10 Eosinophils 1 % (0-5) 10/20/17 04:10 Hypochromia 1+ 10/20/17 04:10 Platelet Estimate ADEQUATE (NORMAL) 10/20/17 04:10 PT 11.5 SECONDS (9.5-11.5) 10/18/17 22:00 INR 1.10 (0.5-1.4) 10/18/17 22:00 Specimen Source Arterial 10/20/17 09:00 Sample Site RB 10/20/17 09:00 pH 7.39 (7.35-7.45) 10/20/17 09:00 pCO2 36.0 mmHg (35.0-45.0) 10/20/17 09:00 pO2 75.0 mmHg (80.0-100.0) L 10/20/17 09:00 HCO3 22.8 mEq/L (20.0-26.0) 10/20/17 09:00 Base Excess -2.7 mEq/L (-3.0-3.0) 10/20/17 09:00 O2 Saturation 95.0 % (92.0-100.0) 10/20/17 09:00 Vasquez Test NA 10/20/17 09:00 Vent Rate 12 10/20/17 09:00 Inspired O2 50 10/20/17 09:00 Tidal Volume 350 10/20/17 09:00 PEEP 4 10/20/17 09:00 Pressure (ins/psv/peep) NA 10/20/17 09:00 Critical Value SH 10/20/17 09:00 Sodium 143 mEq/L (136-145) 10/20/17 04:10 Potassium 3.3 mEq/L (3.5-5.1) L 10/20/17 04:10 Chloride 113 mEq/L (98-107) H 10/20/17 04:10 Carbon Dioxide 21.9 mEq/L (21.0-31.0) 10/20/17 04:10 Anion Gap 11.4 (7.0-16.0) 10/20/17 04:10 BUN 43 mg/dL (7-25) H 10/20/17 04:10 Creatinine 0.7 mg/dL (0.6-1.2) 10/20/17 04:10 Est GFR ( Amer) TNP 10/20/17 04:10 Est GFR (Non-Af Amer) TNP 10/20/17 04:10 BUN/Creatinine Ratio 61.4 10/20/17 04:10 Glucose 161 mg/dL (70-105) H 10/20/17 04:10 Whole Bld Lactic Acid 3.67 mmol/L (0.60-1.99) H* 10/19/17 07:30 Uric Acid 4.1 mg/dL (2.3-6.6) 10/20/17 04:10 Calcium 8.6 mg/dL (8.6-10.3) 10/20/17 04:10 Magnesium 2.1 mg/dL (1.9-2.7) 10/20/17 04:10 Total Bilirubin 0.5 mg/dL (0.3-1.0) 10/20/17 04:10 AST 19 U/L (13-39) 10/20/17 04:10 ALT 13 U/L (7-52) 10/20/17 04:10 Alkaline Phosphatase 34 U/L (34-104) 10/20/17 04:10 Ammonia 33 umol/L (16-53) 10/20/17 04:10 Creatine Kinase 136 U/L (30-223) 10/18/17 22:00 Troponin I 0.07 ng/mL (0.01-0.05) H* 10/18/17 22:00 B-Natriuretic Peptide 275.0 pg/mL (5.0-100.0) H 10/18/17 22:00 Total Protein 5.4 gm/dL (6.0-8.3) L 10/20/17 04:10 Albumin 2.6 gm/dL (3.7-5.3) L 10/20/17 04:10 Globulin 2.8 gm/dL 10/20/17 04:10 Albumin/Globulin Ratio 0.9 (1.0-1.8) L 10/20/17 04:10 Triglycerides 130 mg/dL (<150) 10/18/17 22:00 Cholesterol 111 mg/dL (<200) 10/18/17 22:00 LDL Cholesterol Direct 54 mg/dL (75-193) L 10/18/17 22:00 HDL Cholesterol 37 mg/dL (23-92) 10/18/17 22:00 Amylase 36 U/L (29-103) 10/18/17 22:00 Lipase 6 U/L (11-82) L 10/18/17 22:00 TSH 4.53 uIU/ml (0.34-5.60) 10/19/17 04:40 Urine Source RANDOM 10/19/17 06:30 Urine Color YELLOW 10/19/17 06:30 Urine Clarity CLOUDY (CLEAR) H 10/19/17 06:30 Urine pH 8.5 (4.6 - 8.0) 10/19/17 06:30 Ur Specific [place] 1.015 (1.005-1.030) 10/19/17 06:30 Urine Protein >=300 mg/dL (NEGATIVE) 10/19/17 06:30 Urine Glucose (UA) NEGATIVE mg/dL (NEGATIVE) 10/19/17 06:30 Urine Ketones NEGATIVE mg/dL (NEGATIVE) 10/19/17 06:30 Urine Blood MODERATE (NEGATIVE) H 10/19/17 06:30 Urine Nitrate NEGATIVE (NEGATIVE) 10/19/17 06:30 Urine Bilirubin NEGATIVE (NEGATIVE) 10/19/17 06:30 Urine Urobilinogen 0.2 E.U./dL (0.2 - 1.0) 10/19/17 06:30 Ur Leukocyte Esterase LARGE (NEGATIVE) H 10/19/17 06:30 Urine RBC 10-25 /hpf (0-5) H 10/19/17 06:30 Urine WBC >100 /hpf (0-5) H 10/19/17 06:30 Ur Epithelial Cells OCCASIONAL /lpf (FEW) 10/19/17 06:30 Urine Bacteria MANY /hpf (NONE SEEN) H 10/19/17 06:30 Ur Random Sodium 35 mmol/L 10/20/17 07:07 Urine Creatinine 48.0 mg/dl (28.0-217.0) 10/20/17 07:07 Random Vancomycin 5.4 ug/mL (5.0-40.0) 10/20/17 04:10 Blood Type O POSITIVE 10/20/17 07:30 Antibody Screen NEGATIVE 10/20/17 07:30 Crossmatch See Detail 10/20/17 07:30 - Physical Exam Vitals and I&O: Vital Signs Temp 97.6 F 10/20/17 12:00 Pulse 91 10/20/17 12:00 Resp 26 10/20/17 13:01 BP 110/56 10/20/17 12:00 Pulse Ox 97 10/20/17 13:01 Intake & Output 10/19/17 10/20/17 10/20/17 18:59 06:59 18:59 Intake Total 50 1330.632 645.423 Output Total 1290 1100 850 Balance -1240 230.632 -204.577 Weight (lbs) 53.025 kg 53.025 kg 53.161 kg Intake: Intake, IV Amount 50 1330.632 585.423 D5-0.9%Ns 1,000 ml @ 125 1000 mls/hr IV .Q8H [facility] Rx#: [id number] Norepinephrine 4 mg In 230.632 23.368 Dextrose 5% 250 ml @ 8 MCG/MIN 30.48 mls/hr IV TITR PRN Rx#:[id number] Piperacillin Sodium/ 50 100 50 Tazobact 3.375 gm In Sodium Chloride 0.9% 50 ml @ 100 mls/hr IV Q8H [facility] Rx#:[id number] Potassium Chloride 30 meq 262.055 In Sodium Chloride 0.9% 250 ml @ 88.333 mls/hr IV X1 [facility] Rx#:[id number] Vancomycin HCl 1 gm In 250 Sodium Chloride 0.9% 250 ml @ 165 mls/hr IV Q24H [facility] Rx#:[id number] Oral 0 Other 60 Output: Urine 1290 1100 850 Other: # Bowel Movements 2 Stool Characteristics Soft Brown Active Medications: Current Medications Acetaminophen (Tylenol 650mg/20.3ml Suspension) 500 mg GT Q4H PRN PRN Reason: Pain (Moderate) Stop: 12/18/17 21:04 Last Admin: 10/20/17 08:58 Dose: 500 mg Acetaminophen (Tylenol 650mg/20.3ml Suspension) 325 mg GT Q4H PRN PRN Reason: Pain or Fever >101 Stop: 12/18/17 21:05 Albuterol Sulfate (Albuterol 2.5mg/3ml Neb Ud) 2.5 mg HHN Q4H PRN PRN Reason: Wheezing Stop: 12/18/17 01:25 Last Admin: 10/19/17 18:52 Dose: 2.5 mg Albuterol/Ipratropium (Duoneb Neb) 3 ml HHN Q4HRT [facility] Stop: 12/19/17 02:59 Last Admin: 10/20/17 11:12 Dose: 3 ml Bisacodyl (Dulcolax 10 Mg Supp) 10 mg RC DAILY PRN PRN Reason: Constipation Stop: 12/18/17 20:52 Budesonide (Pulmicort) 0.5 mg HHN BIDRT [facility] Stop: 12/19/17 06:59 Last Admin: 10/20/17 06:49 Dose: 0.5 mg Carbamazepine (Tegretol) 200 mg GT BID EZEKIEL PRN Reason: Protocol Stop: 12/19/17 08:59 Last Admin: 10/20/17 08:59 Dose: 200 mg Piperacillin Sod/Tazobactam (Sod 3.375 gm/ Sodium Chloride) 50 mls @ 100 mls/ hr IV Q8H [facility] Stop: 12/18/17 01:59 Last Infusion: 10/20/17 13:00 Dose: Infused Norepinephrine Bitartrate 4 mg (/ Dextrose) 254 mls @ 30.48 mls/hr IV TITR PRN ; Protocol; 8 MCG/MIN PRN Reason: BP MAINTENANCE (PER PROTOCOL) Stop: 12/18/17 12:11 Last Titration: 10/20/17 08:36 Dose: Infused Dextrose/Sodium Chloride (D5-0.9%Ns) 1,000 mls @ 125 mls/hr IV .Q8H [facility] Stop: 12/18/17 15:14 Last Admin: 10/20/17 06:25 Dose: 125 mls/hr Vancomycin HCl 1 gm/ Sodium (Chloride) 250 mls @ 165 mls/hr IV Q24H [facility] Stop: 12/19/17 10:59 Last Infusion: 10/20/17 12:36 Dose: Infused Miscellaneous (Vancomycin Iv Per Pharmacy) 1 ea PRN PRN PRN Reason: PROTOCOL Stop: 12/18/17 01:10 Miscellaneous (Clinical Monitoring) 1 ea PRN PRN PRN Reason: RENAL Stop: 12/18/17 12:33 Miscellaneous (Probiotic Screen) 1 ea PRN PRN PRN Reason: PROTOCOL Stop: 12/18/17 16:25 General: No acute distress HEENT: Atraumatic, Mucous membr. moist/pink Neck: Supple, +2 carotid pulse wo bruit Cardiovascular: Regular rate, Normal S1, Normal S2 Lungs: Other (harsh rhonhci) Abdomen: Bowel sounds, Soft Extremities: no Edema Neurological: Sensation intact Skin: no Rash Psych/Mental Status: Mood NL - Procedures Procedures: Procedures Procedure Code Date EGD PLACE GASTROSTOMY TUBE 09729 08/28/17 INSERTION OF FEEDING DEVICE INTO STOMACH, ENDO [id number] 08/28/17 Assessment/Plan - Assessment Assessment: FLORIDALMA Shock Septic Sepsis 2/2 HAP, Cx UTI ARF on BIPAP Lactic acidosis Severe Malnutrition Hypokalemia Anemia acute on CD - Plan Plan: Lab - Result Diagrams 10/20/17 04:10 10/20/17 04:10 Current Medications Acetaminophen (Tylenol 650mg/20.3ml Suspension) 500 mg GT Q4H PRN PRN Reason: Pain (Moderate) Stop: 12/18/17 21:04 Last Admin: 10/20/17 08:58 Dose: 500 mg Acetaminophen (Tylenol 650mg/20.3ml Suspension) 325 mg GT Q4H PRN PRN Reason: Pain or Fever >101 Stop: 12/18/17 21:05 Albuterol Sulfate (Albuterol 2.5mg/3ml Neb Ud) 2.5 mg HHN Q4H PRN PRN Reason: Wheezing Stop: 12/18/17 01:25 Last Admin: 10/19/17 18:52 Dose: 2.5 mg Albuterol/Ipratropium (Duoneb Neb) 3 ml HHN Q4HRT [facility] Stop: 12/19/17 02:59 Last Admin: 10/20/17 11:12 Dose: 3 ml Bisacodyl (Dulcolax 10 Mg Supp) 10 mg RC DAILY PRN PRN Reason: Constipation Stop: 12/18/17 20:52 Budesonide (Pulmicort) 0.5 mg HHN BIDRT [facility] Stop: 12/19/17 06:59 Last Admin: 10/20/17 06:49 Dose: 0.5 mg Carbamazepine (Tegretol) 200 mg GT BID EZEKIEL PRN Reason: Protocol Stop: 12/19/17 08:59 Last Admin: 10/20/17 08:59 Dose: 200 mg Piperacillin Sod/Tazobactam (Sod 3.375 gm/ Sodium Chloride) 50 mls @ 100 mls/ hr IV Q8H [facility] Stop: 12/18/17 01:59 Last Infusion: 10/20/17 13:00 Dose: Infused Norepinephrine Bitartrate 4 mg (/ Dextrose) 254 mls @ 30.48 mls/hr IV TITR PRN ; Protocol; 8 MCG/MIN PRN Reason: BP MAINTENANCE (PER PROTOCOL) Stop: 12/18/17 12:11 Last Titration: 10/20/17 08:36 Dose: Infused Dextrose/Sodium Chloride (D5-0.9%Ns) 1,000 mls @ 125 mls/hr IV .Q8H [facility] Stop: 12/18/17 15:14 Last Admin: 10/20/17 06:25 Dose: 125 mls/hr Vancomycin HCl 1 gm/ Sodium (Chloride) 250 mls @ 165 mls/hr IV Q24H [facility] Stop: 12/19/17 10:59 Last Infusion: 10/20/17 12:36 Dose: Infused Miscellaneous (Vancomycin Iv Per Pharmacy) 1 ea MC PRN PRN PRN Reason: PROTOCOL Stop: 12/18/17 01:10 Miscellaneous (Clinical Monitoring) 1 ea MC PRN PRN PRN Reason: RENAL Stop: 12/18/17 12:33 Miscellaneous (Probiotic Screen) 1 ea PRN PRN PRN Reason: PROTOCOL Stop: 12/18/17 16:25 Lab - Result Diagrams 10/20/17 04:10 10/20/17 04:10 Kidney fnc improving replace K CXR now shows B/L infiltrates off Levo, decrease IVF Nutritional Asmnt/Malnutr-PDOC - Dietary Evaluation Malnutrition Findings (Please click <Entered> for more info): Nutritional Asmnt/Malnutrition Start: 10/19/17 15: 37 Text: Status: Complete Freq: Document 10/19/17 15:39 LCHENG (Rec: 10/19/17 15:58 LCHENG [email or web address]) Nutritional Asmnt/Malnutrition Patient General Information Nutritional Screening High Risk Consult Diagnosis sepsis, PNA Pertinent Medical Hx/Surgical Hx HTN, asthma/COPD, CVA/TIA, PUD /GERD Subjective Information Consult received for malnutrition and diet. Pt seen resting in bed, non-verbal, on non-rebreather noted. Pt has PEG noted. Spoke with RN, RN stated TF planned to start today. Current Diet Order/ Nutrition Support no diet order Pertinent Medications D5-0.9%NS, piperacillin Pertinent Labs 10/19 Na 135, K 4.5, Cl 104, BUN 69, Cr 2.0, Glucose 133, ca 8 .0 Nutritional Hx/Data Height 1.6 m Height (Calculated Centimeters) 160.0 Current Weight (lbs) 53.025 kg Weight (Calculated Kilograms) 53.0 Weight (Calculated Grams) 68753.9 [place] Body Weight 115 % [place] Body Weight 101 Body Mass Index (BMI) 20.7 Weight Status Approriate GI Symptoms GI Symptoms None Last BM none Difficult in: None Skin Integrity/Comment: pressure area reddned to right hip and left hip, decubitus ulceration to sacrococcyx skin intact, Zhang 10 Estimated Nutritional Goals BEE in Kcals: Using Current wt Calories/Kcals/Kg 25-30 Kcals Calculated 4993-3014 Protein: Using Current wt Protein g/k.2-1.4 Protein Calculated 64-74 Fluid: ml 1325-1590ml (1ml/kcal) Nutritional Problem 1. Problem Problem increased nutrition needs ( calorie and protein) Etiology increased metabolic demand and energy expenditure Signs/Symptoms: dx of PNA and sepsis and impaired skin integrity Malnutrition Alert Protein-Calorie Malnutrition N/A Is there a minimum of two criteria No selected? Query Text:Check all the applicable criteria. A minimum of two criteria are recommended for diagnosis of either severe or non-severe malnutrition. Intervention/Recommendation Comments 1. Recocommend to start TF Nutren Pulmonary at 20ml/hr for first 24 hours, increased to goal rate of 40ml/hr as tolerated. This will provide 1440kcal, 65g protein and 750ml free water, meeting 100% of nutritional needs. 2. Monitor TF rate, tolerance, wt daily, skin integrity and labs 3. F/U as high risk in 2-3 days, 10/21-10/22 Expected Outcomes/Goals Expected Outcomes/Goals 1. Pt to meet at least 75% of nutritional needs via nutrition support with tolerance 2. Wt stability, skin to remain intact, labs to approach WNL.
[2017-10-20 14:25] LABS: EOSINOPHIL SMEAR SOURCE URINE; EOSINOPHILS SMEAR COUNT FEW EOSINOPHILS SEEN (NONE SEEN)
--- NOTE | 2017-10-20 23:50 | Infectious Disease Prog Note ---
Infectious Disease Subjective - Review of Systems Service Date: 10/20/17 Subjective: no change, no fever. Infectious Disease Objective - Results Result Diagrams: 10/21/17 04:13 10/21/17 04:13 Recent Labs: Laboratory Last Values WBC 15.4 Th/cmm (4.8-10.8) H D 10/20/17 04:10 RBC 2.39 Mil/cmm (3.80-5.20) L 10/20/17 04:10 Hgb 7.2 gm/dL (12-16) L* 10/20/17 04:10 Hct 21.4 % (41.0-60) L D 10/20/17 04:10 MCV 89.5 fl (81-100) 10/20/17 04:10 MCH 30.0 pg (27.0-31.0) 10/20/17 04:10 MCHC Differential 33.5 pg (28.0-36.0) 10/20/17 04:10 RDW 15.3 % (11.5-20.0) 10/20/17 04:10 Plt Count 273 Th/cmm (150-400) 10/20/17 04:10 MPV 8.4 fl 10/20/17 04:10 Band Neutrophils % 36 % (0-10) H 10/20/17 04:10 Neutrophils (Manual) 52 % (40-80) 10/20/17 04:10 Lymphocytes 7 % (20-50) L 10/20/17 04:10 Monocytes 4 % (2-10) 10/20/17 04:10 Eosinophils 1 % (0-5) 10/20/17 04:10 Hypochromia 1+ 10/20/17 04:10 Platelet Estimate ADEQUATE (NORMAL) 10/20/17 04:10 Eos Smear Source URINE 10/20/17 08:50 Eos Smear Total Cells FEW EOSINOPHILS SEEN (NONE SEEN) 10/20/17 08:50 PT 11.5 SECONDS (9.5-11.5) 10/18/17 22:00 INR 1.10 (0.5-1.4) 10/18/17 22:00 Specimen Source Arterial 10/20/17 09:00 Sample Site RB 10/20/17 09:00 pH 7.39 (7.35-7.45) 10/20/17 09:00 pCO2 36.0 mmHg (35.0-45.0) 10/20/17 09:00 pO2 75.0 mmHg (80.0-100.0) L 10/20/17 09:00 HCO3 22.8 mEq/L (20.0-26.0) 10/20/17 09:00 Base Excess -2.7 mEq/L (-3.0-3.0) 10/20/17 09:00 O2 Saturation 95.0 % (92.0-100.0) 10/20/17 09:00 Vasquez Test NA 10/20/17 09:00 Vent Rate 12 10/20/17 09:00 Inspired O2 50 10/20/17 09:00 Tidal Volume 350 10/20/17 09:00 PEEP 4 10/20/17 09:00 Pressure (ins/psv/peep) NA 10/20/17 09:00 Critical Value SH 10/20/17 09:00 Sodium 143 mEq/L (136-145) 10/20/17 04:10 Potassium 3.3 mEq/L (3.5-5.1) L 10/20/17 04:10 Chloride 113 mEq/L (98-107) H 10/20/17 04:10 Carbon Dioxide 21.9 mEq/L (21.0-31.0) 10/20/17 04:10 Anion Gap 11.4 (7.0-16.0) 10/20/17 04:10 BUN 43 mg/dL (7-25) H 10/20/17 04:10 Creatinine 0.7 mg/dL (0.6-1.2) 10/20/17 04:10 Est GFR ( Amer) TNP 10/20/17 04:10 Est GFR (Non-Af Amer) TNP 10/20/17 04:10 BUN/Creatinine Ratio 61.4 10/20/17 04:10 Glucose 161 mg/dL (70-105) H 10/20/17 04:10 Whole Bld Lactic Acid 3.67 mmol/L (0.60-1.99) H* 10/19/17 07:30 Uric Acid 4.1 mg/dL (2.3-6.6) 10/20/17 04:10 Calcium 8.6 mg/dL (8.6-10.3) 10/20/17 04:10 Magnesium 2.1 mg/dL (1.9-2.7) 10/20/17 04:10 Total Bilirubin 0.5 mg/dL (0.3-1.0) 10/20/17 04:10 AST 19 U/L (13-39) 10/20/17 04:10 ALT 13 U/L (7-52) 10/20/17 04:10 Alkaline Phosphatase 34 U/L (34-104) 10/20/17 04:10 Ammonia 33 umol/L (16-53) 10/20/17 04:10 Creatine Kinase 136 U/L (30-223) 10/18/17 22:00 Troponin I 0.07 ng/mL (0.01-0.05) H* 10/18/17 22:00 B-Natriuretic Peptide 275.0 pg/mL (5.0-100.0) H 10/18/17 22:00 Total Protein 5.4 gm/dL (6.0-8.3) L 10/20/17 04:10 Albumin 2.6 gm/dL (3.7-5.3) L 10/20/17 04:10 Globulin 2.8 gm/dL 10/20/17 04:10 Albumin/Globulin Ratio 0.9 (1.0-1.8) L 10/20/17 04:10 Triglycerides 130 mg/dL (<150) 10/18/17 22:00 Cholesterol 111 mg/dL (<200) 10/18/17 22:00 LDL Cholesterol Direct 54 mg/dL (75-193) L 10/18/17 22:00 HDL Cholesterol 37 mg/dL (23-92) 10/18/17 22:00 Amylase 36 U/L (29-103) 10/18/17 22:00 Lipase 6 U/L (11-82) L 10/18/17 22:00 TSH 4.53 uIU/ml (0.34-5.60) 10/19/17 04:40 Urine Source RANDOM 10/19/17 06:30 Urine Color YELLOW 10/19/17 06:30 Urine Clarity CLOUDY (CLEAR) H 10/19/17 06:30 Urine pH 8.5 (4.6 - 8.0) 10/19/17 06:30 Ur Specific [place] 1.015 (1.005-1.030) 10/19/17 06:30 Urine Protein >=300 mg/dL (NEGATIVE) 10/19/17 06:30 Urine Glucose (UA) NEGATIVE mg/dL (NEGATIVE) 10/19/17 06:30 Urine Ketones NEGATIVE mg/dL (NEGATIVE) 10/19/17 06:30 Urine Blood MODERATE (NEGATIVE) H 10/19/17 06:30 Urine Nitrate NEGATIVE (NEGATIVE) 10/19/17 06:30 Urine Bilirubin NEGATIVE (NEGATIVE) 10/19/17 06:30 Urine Urobilinogen 0.2 E.U./dL (0.2 - 1.0) 10/19/17 06:30 Ur Leukocyte Esterase LARGE (NEGATIVE) H 10/19/17 06:30 Urine RBC 10-25 /hpf (0-5) H 10/19/17 06:30 Urine WBC >100 /hpf (0-5) H 10/19/17 06:30 Ur Epithelial Cells OCCASIONAL /lpf (FEW) 10/19/17 06:30 Urine Bacteria MANY /hpf (NONE SEEN) H 10/19/17 06:30 Ur Random Sodium 35 mmol/L 10/20/17 07:07 Urine Creatinine 48.0 mg/dl (28.0-217.0) 10/20/17 07:07 Random Vancomycin 5.4 ug/mL (5.0-40.0) 10/20/17 04:10 Blood Type O POSITIVE 10/20/17 07:30 Antibody Screen NEGATIVE 10/20/17 07:30 Crossmatch See Detail 10/20/17 07:30 - Physical Exam Vitals and I&O: Vital Signs Temp 98.6 F 10/20/17 21:00 Pulse 93 10/20/17 23:00 Resp 29 10/20/17 23:00 BP 126/79 10/20/17 23:00 Pulse Ox 98 10/20/17 23:00 Intake & Output 10/20/17 10/20/17 10/21/17 06:59 18:59 06:59 Intake Total 7664.969 3877.423 0 Output Total 1100 1250 Balance 940.276 8023.423 0 Weight (lbs) 53.025 kg 53.07 kg Intake: Intake, IV Amount 5790.944 5931.423 0 D5-0.9%Ns 1,000 ml @ 125 1000 1000 mls/hr IV .Q8H [facility] Rx#: [id number] D5-0.9%Ns 1,000 ml @ 60 7 0 mls/hr IV .[id number] [facility] Rx #:[id number] Norepinephrine 4 mg In 230.632 23.368 Dextrose 5% 250 ml @ 8 MCG/MIN 30.48 mls/hr IV TITR PRN Rx#:[id number] Piperacillin Sodium/ 100 100 Tazobact 3.375 gm In Sodium Chloride 0.9% 50 ml @ 100 mls/hr IV Q8H [facility] Rx#:[id number] Potassium Chloride 30 meq 262.055 In Sodium Chloride 0.9% 250 ml @ 88.333 mls/hr IV X1 [facility] Rx#:[id number] Vancomycin HCl 1 gm In 250 Sodium Chloride 0.9% 250 ml @ 165 mls/hr IV Q24H [facility] Rx#:[id number] Oral 0 Tube Feeding 342 Blood Product 350 Other 60 Output: Urine 1100 1250 Other: # Bowel Movements 1 Stool Characteristics Soft Soft Brown Brown Active Medications: Current Medications Acetaminophen (Tylenol 650mg/20.3ml Suspension) 500 mg GT Q4H PRN PRN Reason: Pain (Moderate) Stop: 12/18/17 21:04 Last Admin: 10/20/17 16:54 Dose: 500 mg Acetaminophen (Tylenol 650mg/20.3ml Suspension) 325 mg GT Q4H PRN PRN Reason: Pain or Fever >101 Stop: 12/18/17 21:05 Albuterol Sulfate (Albuterol 2.5mg/3ml Neb Ud) 2.5 mg HHN Q4H PRN PRN Reason: Wheezing Stop: 12/18/17 01:25 Last Admin: 10/19/17 18:52 Dose: 2.5 mg Albuterol/Ipratropium (Duoneb Neb) 3 ml HHN Q4HRT [facility] Stop: 12/19/17 02:59 Last Admin: 10/20/17 22:36 Dose: 3 ml Bisacodyl (Dulcolax 10 Mg Supp) 10 mg RC DAILY PRN PRN Reason: Constipation Stop: 12/18/17 20:52 Budesonide (Pulmicort) 0.5 mg HHN BIDRT [facility] Stop: 12/19/17 06:59 Last Admin: 10/20/17 19:02 Dose: 0.5 mg Carbamazepine (Tegretol) 200 mg GT BID EZEKIEL PRN Reason: Protocol Stop: 12/19/17 08:59 Last Admin: 10/20/17 16:54 Dose: 200 mg Piperacillin Sod/Tazobactam (Sod 3.375 gm/ Sodium Chloride) 50 mls @ 100 mls/ hr IV Q8H [facility] Stop: 12/18/17 01:59 Last Infusion: 10/20/17 18:21 Dose: Infused Norepinephrine Bitartrate 4 mg (/ Dextrose) 254 mls @ 30.48 mls/hr IV TITR PRN ; Protocol; 8 MCG/MIN PRN Reason: BP MAINTENANCE (PER PROTOCOL) Stop: 12/18/17 12:11 Last Titration: 10/20/17 08:36 Dose: Infused Vancomycin HCl 1 gm/ Sodium (Chloride) 250 mls @ 165 mls/hr IV Q24H [facility] Stop: 12/19/17 10:59 Last Infusion: 10/20/17 12:36 Dose: Infused Dextrose/Sodium Chloride (D5-0.9%Ns) 1,000 mls @ 60 mls/hr IV .[id number] [facility] Stop: 12/19/17 13:46 Last Infusion: 10/20/17 22:38 Dose: 60 mls/hr Miscellaneous (Vancomycin Iv Per Pharmacy) 1 [facility] PRN PRN PRN Reason: PROTOCOL Stop: 12/18/17 01:10 Miscellaneous (Clinical Monitoring) 1 [facility] PRN PRN PRN Reason: RENAL Stop: 12/18/17 12:33 Miscellaneous (Probiotic Screen) 1 [facility] PRN PRN PRN Reason: PROTOCOL Stop: 12/18/17 16:25 General: no acute distress, well developed, well nourished HEENT: atraumatic, normocephalic, EOMI, moist mucous membrane Neck: supple Cardiovascular: S1S2, regular Lungs: clear to auscultation bilaterally, clear to percussion Abdomen: soft, no tender, no distended Extremities: no cyanosis, no clubbing, no edema Neurological: alert, oriented - Procedures Procedures: Procedures Procedure Code Date EGD PLACE GASTROSTOMY TUBE 21439 08/28/17 INSERTION OF FEEDING DEVICE INTO STOMACH, ENDO [id number] 08/28/17 Infectious Disease Assmt/Plan - Assessment Assessment: 1. Sepsis. Septic shock. Severe sepsis. Lactic acidemia. 2. Hypotension, multifactorial including sepsis and cardiogenic. 3. UTI, complicated. 4. Pneumonia. 5. Altered mental status. Multifactorial. 6. Respiratory failure. On BiPAP. 7. Dementia. 8. Protein calorie malnutrition. 9. Acute failure. - Plan Plan: cpm Nutritional Asmnt/Malnutr-PDOC - Dietary Evaluation Malnutrition Findings (Please click <Entered> for more info): Nutritional Asmnt/Malnutrition Start: 10/19/17 15: 37 Text: Status: Complete Freq: [facility] 10[facility]19[facility]17 15:39 [facility] (Rec: 10/19/17 15:58 [facility]-FNS[facility]) Nutritional Asmnt/Malnutrition Patient General Information Nutritional Screening High Risk Consult Diagnosis sepsis, PNA Pertinent Medical Hx/Surgical Hx HTN, asthma/COPD, CVA/TIA, PUD /GERD Subjective Information Consult received for malnutrition and diet. Pt seen resting in bed, non-verbal, on non-rebreather noted. Pt has PEG noted. Spoke with RN, RN stated TF planned to start today. Current Diet Order/ Nutrition Support no diet order Pertinent Medications D5-0.9%NS, piperacillin Pertinent Labs 10/19 Na 135, K 4.5, Cl 104, BUN 69, Cr 2.0, Glucose 133, ca 8 .0 Nutritional Hx/Data Height 1.6 m Height (Calculated Centimeters) 160.0 Current Weight (lbs) 53.025 kg Weight (Calculated Kilograms) 53.0 Weight (Calculated Grams) 36233.9 [place] Body Weight 115 % [place] Body Weight 101 Body Mass Index (BMI) 20.7 Weight Status Approriate GI Symptoms GI Symptoms None Last BM none Difficult in: None Skin Integrity/Comment: pressure area reddned to right hip and left hip, decubitus ulceration to sacrococcyx skin intact, Zhang 10 Estimated Nutritional Goals BEE in Kcals: Using Current wt Calories/Kcals/Kg 25-30 Kcals Calculated [id number] Protein: Using Current wt Protein g/k.2-1.4 Protein Calculated 64-74 Fluid: ml 1325-1590ml (1ml/kcal) Nutritional Problem 1. Problem Problem increased nutrition needs ( calorie and protein) Etiology increased metabolic demand and energy expenditure Signs/Symptoms: dx of PNA and sepsis and impaired skin integrity Malnutrition Alert Protein-Calorie Malnutrition N/A Is there a minimum of two criteria No selected? Query Text:Check all the applicable criteria. A minimum of two criteria are recommended for diagnosis of either severe or non-severe malnutrition. Intervention/Recommendation Comments 1. Recocommend to start TF Nutren Pulmonary at 20ml/hr for first 24 hours, increased to goal rate of 40ml/hr as tolerated. This will provide 1440kcal, 65g protein and 750ml free water, meeting 100% of nutritional needs. 2. Monitor TF rate, tolerance, wt daily, skin integrity and labs 3. F/U as high risk in 2-3 days, 10/21-10/22 Expected Outcomes/Goals Expected Outcomes/Goals 1. Pt to meet at least 75% of nutritional needs via nutrition support with tolerance 2. Wt stability, skin to remain intact, labs to approach WNL.
--- NOTE | 2017-10-20 23:59 | Progress Notes ---
DATE: 10/20/2017 PULMONARY PROGRESS NOTE PROBLEM LIST: 1. Acute septicemia. 2. Question pneumonia. 3. History of hypertension and history of possible Alzheimer. SYMPTOMS: The patient is noncommunicative, move more right upper and lower extremities and does not seem to be in distress, still on BiPAP. PHYSICAL EXAMINATION: VITAL SIGNS: Temperature is 99.2, blood pressure 128/78, saturation is 100% on 45% of oxygen. NECK: Veins not visualized. CHEST: Shows diminished air entry with occasional rhonchi. LABORATORY DATA: White count is trending down, now is 15.4, hemoglobin 97.2. ABG: pO2 75 on BiPAP with 50% oxygen. ASSESSMENT: The patient clinically appears to be slightly better. Leukocytosis is improving. Mental symptoms seem to be improving. PLANS AND SUGGESTIONS: We will continue current treatment for the next 24 hours. If she is reasonably well, we will go ahead and take off the BiPAP and put it p.r.n. and go from there. JOB# [id number]
--- NOTE | 2017-10-21 01:52 | Progress Notes ---
DATE: 10/20/2017 SUBJECTIVE: The patient was seen in the Intensive Care Unit. The patient is off Levophed, but currently on a CPAP. The patient will be receiving 2 units of packed RBC. Otherwise, the patient appears to be in no acute distress. OBJECTIVE: VITAL SIGNS: Temperature 99.2, heart rate of 106, blood pressure 118/76, respirations 28, saturation is 95% on 40% FiO2. HEENT: Head is atraumatic and normocephalic. Eyes: Bilateral conjunctivae are clear. Bilateral pupils are equally round and reactive. NECK: Supple. No JVD. CARDIOVASCULAR: S1 and S2, without murmur. PULMONARY: Clear to auscultation. GASTROINTESTINAL: Soft and nontender without guarding. Positive bowel sounds. MUSCULOSKELETAL: No clubbing. No cyanosis noted. ASSESSMENT: 1. Sepsis. 2. Urinary tract infection. 3. Pneumonia. 4. Acute respiratory failure. 5. Dementia. 6. Malnutrition. PLAN: We will follow up with ID doctor for antibiotic management. We will follow up with the wearing apparel folder for pulmonary support, also going to monitor the patient's H and H level and also we will put the patient on aspiration precaution. Treatment plans were discussed with the patient's nurse. Treatment plans were discussed with Dr. Mcneil. JOB# [id number]
[2017-10-21] MEDS: Albuterol/Ipratropium Neb 3 ML AERS HHN SCH ×6 (02:49→23:05)
[2017-10-21 05:36] LABS: HEMOGLOBIN 9.9 gm/dL (12-16); LYMPHOCYTE ABSOLUTE 0.7 Th/cmm (1.5-3.0); MEAN CELL VOLUME 88.9 fl (81-100); MEAN CORPUSCULAR HEMOGLOBIN 30.2 pg (27.0-31.0); MEAN PLATELET VOLUME 9.2 fl; MONOCYTE ABSOLUTE 0.6 Th/cmm (0.3-1.0); PLATELET COUNT 270 Th/cmm (150-400); RED BLOOD COUNT 3.26 Mil/cmm (3.80-5.20); RED CELL DISTRIBUTION WIDTH 15.8 % (11.5-20.0)
[2017-10-21 05:53] LABS: ANION GAP 10.7 (7.0-16.0); BUN - UREA NITROGEN 33 mg/dL (7-25); CALCIUM SERUM 8.7 mg/dL (8.6-10.3); CHLORIDE 119 mEq/L (98-107); CREATININE - SERUM 0.4 mg/dL (0.6-1.2); GLUCOSE 160 mg/dL (70-105); MAGNESIUM 2.1 mg/dL (1.9-2.7); SODIUM SERUM 148 mEq/L (136-145)
[2017-10-21 05:58] LABS: POTASSIUM SERUM 2.7 mEq/L (3.5-5.1)
[2017-10-21 06:09] LABS: WHITE BLOOD COUNT 19.3 Th/cmm (4.8-10.8)
[2017-10-21] MEDS: Budesonide 0.5 Mg/2 mL Ud HHN SCH ×2 (06:41→19:14)
[2017-10-21] MEDS ORDERED: D5 IV SCH ×3 (07:15→16:19)
[2017-10-21] MEDS ORDERED: NS IV SCH (07:15)
[2017-10-21] MEDS ORDERED: POTASSIUM CHLORIDE IV SCH (07:15)
[2017-10-21 08:32] LABS: pH 7.47 (7.35-7.45)
--- NOTE | 2017-10-21 08:45 | Diagnostic Imaging Report ---
Portable chest x-ray HISTORY: Shortness of breath Compared with prior exam of October 20, 2017, there is a pronounced increase in extensive consolidation within the left lung. Persistent infiltrate noted in the right perihilar and right upper lobe areas. IMPRESSION: 1. Worsening pulmonary status with a marked increase in extensive consolidation within the left lung since October 20, 2017.
[2017-10-21] MEDS: carBAMazepine 200 mg/10 mL UDC GT SCH ×2 (08:46→17:31)
--- NOTE | 2017-10-21 10:30 | General Progress Note ---
Subjective - Review of Systems Events since last encounter: in no distress comfortable Objective - Results Result Diagrams: 10/21/17 04:13 10/21/17 04:13 Recent Labs: Laboratory Last Values WBC 19.3 Th/cmm (4.8-10.8) H D 10/21/17 04:13 RBC 3.26 Mil/cmm (3.80-5.20) L 10/21/17 04:13 Hgb 9.9 gm/dL (12-16) L 10/21/17 04:13 Hct 29.0 % (41.0-60) L D 10/21/17 04:13 MCV 88.9 fl (81-100) 10/21/17 04:13 MCH 30.2 pg (27.0-31.0) 10/21/17 04:13 MCHC Differential 34.0 pg (28.0-36.0) 10/21/17 04:13 RDW 15.8 % (11.5-20.0) 10/21/17 04:13 Plt Count 270 Th/cmm (150-400) 10/21/17 04:13 MPV 9.2 fl 10/21/17 04:13 Band Neutrophils % 36 % (0-10) H 10/20/17 04:10 Neutrophils (Manual) 52 % (40-80) 10/20/17 04:10 Lymphocytes 7 % (20-50) L 10/20/17 04:10 Monocytes 4 % (2-10) 10/20/17 04:10 Eosinophils 1 % (0-5) 10/20/17 04:10 Hypochromia 1+ 10/20/17 04:10 Platelet Estimate ADEQUATE (NORMAL) 10/20/17 04:10 Eos Smear Source URINE 10/20/17 08:50 Eos Smear Total Cells FEW EOSINOPHILS SEEN (NONE SEEN) 10/20/17 08:50 PT 11.5 SECONDS (9.5-11.5) 10/18/17 22:00 INR 1.10 (0.5-1.4) 10/18/17 22:00 Specimen Source Arterial 10/21/17 08:30 Sample Site RB 10/21/17 08:30 pH 7.47 (7.35-7.45) H 10/21/17 08:30 pCO2 29.0 mmHg (35.0-45.0) L 10/21/17 08:30 pO2 64.0 mmHg (80.0-100.0) L 10/21/17 08:30 HCO3 23.6 mEq/L (20.0-26.0) 10/21/17 08:30 Base Excess -1.6 mEq/L (-3.0-3.0) 10/21/17 08:30 O2 Saturation 93.0 % (92.0-100.0) 10/21/17 08:30 Vasquez Test NA 10/21/17 08:30 Vent Rate 12 10/21/17 08:30 Inspired O2 45 10/21/17 08:30 Tidal Volume 350 10/21/17 08:30 PEEP 4 10/21/17 08:30 Pressure (ins/psv/peep) NA 10/21/17 08:30 Critical Value SH 10/21/17 08:30 Sodium 148 mEq/L (136-145) H 10/21/17 04:13 Potassium 2.7 mEq/L (3.5-5.1) L* 10/21/17 04:13 Chloride 119 mEq/L (98-107) H 10/21/17 04:13 Carbon Dioxide 21.0 mEq/L (21.0-31.0) 10/21/17 04:13 Anion Gap 10.7 (7.0-16.0) 10/21/17 04:13 BUN 33 mg/dL (7-25) H 10/21/17 04:13 Creatinine 0.4 mg/dL (0.6-1.2) L 10/21/17 04:13 Est GFR ( Amer) TNP 10/21/17 04:13 Est GFR (Non-Af Amer) TNP 10/21/17 04:13 BUN/Creatinine Ratio 82.5 10/21/17 04:13 Glucose 160 mg/dL (70-105) H 10/21/17 04:13 Whole Bld Lactic Acid 3.67 mmol/L (0.60-1.99) H* 10/19/17 07:30 Uric Acid 4.1 mg/dL (2.3-6.6) 10/20/17 04:10 Calcium 8.7 mg/dL (8.6-10.3) 10/21/17 04:13 Magnesium 2.1 mg/dL (1.9-2.7) 10/21/17 04:13 Total Bilirubin 0.5 mg/dL (0.3-1.0) 10/20/17 04:10 AST 19 U/L (13-39) 10/20/17 04:10 ALT 13 U/L (7-52) 10/20/17 04:10 Alkaline Phosphatase 34 U/L (34-104) 10/20/17 04:10 Ammonia 33 umol/L (16-53) 10/20/17 04:10 Creatine Kinase 136 U/L (30-223) 10/18/17 22:00 Troponin I 0.07 ng/mL (0.01-0.05) H* 10/18/17 22:00 B-Natriuretic Peptide 275.0 pg/mL (5.0-100.0) H 10/18/17 22:00 Total Protein 5.4 gm/dL (6.0-8.3) L 10/20/17 04:10 Albumin 2.6 gm/dL (3.7-5.3) L 10/20/17 04:10 Globulin 2.8 gm/dL 10/20/17 04:10 Albumin/Globulin Ratio 0.9 (1.0-1.8) L 10/20/17 04:10 Triglycerides 130 mg/dL (<150) 10/18/17 22:00 Cholesterol 111 mg/dL (<200) 10/18/17 22:00 LDL Cholesterol Direct 54 mg/dL (75-193) L 10/18/17 22:00 HDL Cholesterol 37 mg/dL (23-92) 10/18/17 22:00 Amylase 36 U/L (29-103) 10/18/17 22:00 Lipase 6 U/L (11-82) L 10/18/17 22:00 TSH 4.53 uIU/ml (0.34-5.60) 10/19/17 04:40 Urine Source RANDOM 10/19/17 06:30 Urine Color YELLOW 10/19/17 06:30 Urine Clarity CLOUDY (CLEAR) H 10/19/17 06:30 Urine pH 8.5 (4.6 - 8.0) 10/19/17 06:30 Ur Specific [place] 1.015 (1.005-1.030) 10/19/17 06:30 Urine Protein >=300 mg/dL (NEGATIVE) 10/19/17 06:30 Urine Glucose (UA) NEGATIVE mg/dL (NEGATIVE) 10/19/17 06:30 Urine Ketones NEGATIVE mg/dL (NEGATIVE) 10/19/17 06:30 Urine Blood MODERATE (NEGATIVE) H 10/19/17 06:30 Urine Nitrate NEGATIVE (NEGATIVE) 10/19/17 06:30 Urine Bilirubin NEGATIVE (NEGATIVE) 10/19/17 06:30 Urine Urobilinogen 0.2 E.U./dL (0.2 - 1.0) 10/19/17 06:30 Ur Leukocyte Esterase LARGE (NEGATIVE) H 10/19/17 06:30 Urine RBC 10-25 /hpf (0-5) H 10/19/17 06:30 Urine WBC >100 /hpf (0-5) H 10/19/17 06:30 Ur Epithelial Cells OCCASIONAL /lpf (FEW) 10/19/17 06:30 Urine Bacteria MANY /hpf (NONE SEEN) H 10/19/17 06:30 Ur Random Sodium 35 mmol/L 10/20/17 07:07 Urine Creatinine 48.0 mg/dl (28.0-217.0) 10/20/17 07:07 Random Vancomycin 5.4 ug/mL (5.0-40.0) 10/20/17 04:10 Blood Type O POSITIVE 10/20/17 07:30 Antibody Screen NEGATIVE 10/20/17 07:30 Crossmatch See Detail 10/20/17 07:30 - Physical Exam Vitals and I&O: Vital Signs Temp 99.5 F 10/21/17 10:00 Pulse 103 10/21/17 10:18 Resp 29 10/21/17 10:18 BP 165/94 10/21/17 10:00 Pulse Ox 93 10/21/17 10:18 Intake & Output 10/20/17 10/21/17 10/21/17 18:59 06:59 18:59 Intake Total 2394.423 0 810 Output Total 1250 1040 Balance 1144.423 0 -230 Weight (lbs) 53.07 kg 56.019 kg Intake: Intake, IV Amount 1642.423 0 D5-0.9%Ns 1,000 ml @ 125 1000 mls/hr IV .Q8H [facility] Rx#: [id number] D5-0.9%Ns 1,000 ml @ 60 7 0 mls/hr IV .[id number] [facility] Rx #:[id number] Norepinephrine 4 mg In 23.368 Dextrose 5% 250 ml @ 8 MCG/MIN 30.48 mls/hr IV TITR PRN Rx#:[id number] Piperacillin Sodium/ 100 Tazobact 3.375 gm In Sodium Chloride 0.9% 50 ml @ 100 mls/hr IV Q8H [facility] Rx#:[id number] Potassium Chloride 30 meq 262.055 In Sodium Chloride 0.9% 250 ml @ 88.333 mls/hr IV X1 ONE Rx#:[id number] Vancomycin HCl 1 gm In 250 Sodium Chloride 0.9% 250 ml @ 165 mls/hr IV Q24H [facility] Rx#:[id number] Oral 0 0 Tube Feeding 342 750 Blood Product 350 Other 60 60 Output: Urine 1250 1040 Other: # Bowel Movements 1 2 Stool Characteristics Soft Soft Brown Brown Active Medications: Current Medications Acetaminophen (Tylenol 650mg/20.3ml Suspension) 500 mg GT Q4H PRN PRN Reason: Pain (Moderate) Stop: 12/18/17 21:04 Last Admin: 10/20/17 16:54 Dose: 500 mg Acetaminophen (Tylenol 650mg/20.3ml Suspension) 325 mg GT Q4H PRN PRN Reason: Pain or Fever >101 Stop: 12/18/17 21:05 Albuterol Sulfate (Albuterol 2.5mg/3ml Neb Ud) 2.5 mg HHN Q4H PRN PRN Reason: Wheezing Stop: 12/18/17 01:25 Last Admin: 10/19/17 18:52 Dose: 2.5 mg Albuterol/Ipratropium (Duoneb Neb) 3 ml HHN Q4HRT [facility] Stop: 12/19/17 02:59 Last Admin: 10/21/17 06:41 Dose: 3 ml Bisacodyl (Dulcolax 10 Mg Supp) 10 mg RC DAILY PRN PRN Reason: Constipation Stop: 12/18/17 20:52 Budesonide (Pulmicort) 0.5 mg HHN BIDRT [facility] Stop: 12/19/17 06:59 Last Admin: 10/21/17 06:41 Dose: 0.5 mg Carbamazepine (Tegretol) 200 mg GT BID EZEKIEL PRN Reason: Protocol Stop: 12/19/17 08:59 Last Admin: 10/21/17 08:46 Dose: 200 mg Piperacillin Sod/Tazobactam (Sod 3.375 gm/ Sodium Chloride) 50 mls @ 100 mls/ hr IV Q8H [facility] Stop: 12/18/17 01:59 Last Admin: 10/21/17 02:08 Dose: 100 mls/hr Norepinephrine Bitartrate 4 mg (/ Dextrose) 254 mls @ 30.48 mls/hr IV TITR PRN ; Protocol; 8 MCG/MIN PRN Reason: BP MAINTENANCE (PER PROTOCOL) Stop: 12/18/17 12:11 Last Titration: 10/20/17 08:36 Dose: Infused Vancomycin HCl 1 gm/ Sodium (Chloride) 250 mls @ 165 mls/hr IV Q24H [facility] Stop: 12/19/17 10:59 Last Infusion: 10/20/17 12:36 Dose: Infused Potassium Chloride 30 meq/ (Dextrose/Sodium Chloride) 1,015 mls @ 60 mls/hr IV .[id number] [facility] Stop: 12/20/17 07:14 Last Admin: 10/21/17 08:45 Dose: 60 mls/hr Miscellaneous (Vancomycin Iv Per Pharmacy) 1 ea PRN PRN PRN Reason: PROTOCOL Stop: 12/18/17 01:10 Miscellaneous (Clinical Monitoring) 1 ea PRN PRN PRN Reason: RENAL Stop: 12/18/17 12:33 Miscellaneous (Probiotic Screen) 1 ea PRN PRN PRN Reason: PROTOCOL Stop: 12/18/17 16:25 General: No acute distress HEENT: Atraumatic, Mucous membr. moist/pink Neck: Supple, +2 carotid pulse wo bruit Cardiovascular: Regular rate, Normal S1, Normal S2 Lungs: Other (harsh rhonhci) Abdomen: Bowel sounds, Soft Extremities: no Edema Neurological: Sensation intact Skin: no Rash Psych/Mental Status: Mood NL - Procedures Procedures: Procedures Procedure Code Date EGD PLACE GASTROSTOMY TUBE 99174 08/28/17 INSERTION OF FEEDING DEVICE INTO STOMACH, ENDO [id number] 08/28/17 Nutritional Asmnt/Malnutr-PDOC - Dietary Evaluation Malnutrition Findings (Please click <Entered> for more info): Nutritional Asmnt/Malnutrition Start: 10/19/17 15: 37 Text: Status: Complete Freq: Document 10/19/17 15:39 LCABBY (Rec: 10/19/17 15:58 [email or web address] [email or web address]) Nutritional Asmnt/Malnutrition Patient General Information Nutritional Screening High Risk Consult Diagnosis sepsis, PNA Pertinent Medical Hx/Surgical Hx HTN, asthma/COPD, CVA/TIA, PUD /GERD Subjective Information Consult received for malnutrition and diet. Pt seen resting in bed, non-verbal, on non-rebreather noted. Pt has PEG noted. Spoke with RN, RN stated TF planned to start today. Current Diet Order/ Nutrition Support no diet order Pertinent Medications D5-0.9%NS, piperacillin Pertinent Labs 10/19 Na 135, K 4.5, Cl 104, BUN 69, Cr 2.0, Glucose 133, ca 8 .0 Nutritional Hx/Data Height 1.6 m Height (Calculated Centimeters) 160.0 Current Weight (lbs) 53.025 kg Weight (Calculated Kilograms) 53.0 Weight (Calculated Grams) 32736.9 [place] Body Weight 115 % [place] Body Weight 101 Body Mass Index (BMI) 20.7 Weight Status Approriate GI Symptoms GI Symptoms None Last BM none Difficult in: None Skin Integrity/Comment: pressure area reddned to right hip and left hip, decubitus ulceration to sacrococcyx skin intact, Zhang 10 Estimated Nutritional Goals BEE in Kcals: Using Current wt Calories/Kcals/Kg 25-30 Kcals Calculated 2974-0529 Protein: Using Current wt Protein g/k.2-1.4 Protein Calculated 64-74 Fluid: ml 1325-1590ml (1ml/kcal) Nutritional Problem 1. Problem Problem increased nutrition needs ( calorie and protein) Etiology increased metabolic demand and energy expenditure Signs/Symptoms: dx of PNA and sepsis and impaired skin integrity Malnutrition Alert Protein-Calorie Malnutrition N/A Is there a minimum of two criteria No selected? Query Text:Check all the applicable criteria. A minimum of two criteria are recommended for diagnosis of either severe or non-severe malnutrition. Intervention/Recommendation Comments 1. Recocommend to start TF Nutren Pulmonary at 20ml/hr for first 24 hours, increased to goal rate of 40ml/hr as tolerated. This will provide 1440kcal, 65g protein and 750ml free water, meeting 100% of nutritional needs. 2. Monitor TF rate, tolerance, wt daily, skin integrity and labs 3. F/U as high risk in 2-3 days, 10/21-10/22 Expected Outcomes/Goals Expected Outcomes/Goals 1. Pt to meet at least 75% of nutritional needs via nutrition support with tolerance 2. Wt stability, skin to remain intact, labs to approach WNL.
[2017-10-21] MEDS ORDERED: [UNRECOGNIZED DRUG - OTHER] IV SCH ×2 (16:15→16:19)
[2017-10-21] MEDS ORDERED: KCL IV SCH ×2 (16:15→16:19)
--- NOTE | 2017-10-21 16:17 | General Progress Note ---
Subjective - Review of Systems Service Date: 10/21/17 Subjective: stuporous, on BIPAP Objective - Results Result Diagrams: 10/21/17 04:13 10/21/17 04:13 Recent Labs: Laboratory Last Values WBC 19.3 Th/cmm (4.8-10.8) H D 10/21/17 04:13 RBC 3.26 Mil/cmm (3.80-5.20) L 10/21/17 04:13 Hgb 9.9 gm/dL (12-16) L 10/21/17 04:13 Hct 29.0 % (41.0-60) L D 10/21/17 04:13 MCV 88.9 fl (81-100) 10/21/17 04:13 MCH 30.2 pg (27.0-31.0) 10/21/17 04:13 MCHC Differential 34.0 pg (28.0-36.0) 10/21/17 04:13 RDW 15.8 % (11.5-20.0) 10/21/17 04:13 Plt Count 270 Th/cmm (150-400) 10/21/17 04:13 MPV 9.2 fl 10/21/17 04:13 Band Neutrophils % 36 % (0-10) H 10/20/17 04:10 Neutrophils (Manual) 52 % (40-80) 10/20/17 04:10 Lymphocytes 7 % (20-50) L 10/20/17 04:10 Monocytes 4 % (2-10) 10/20/17 04:10 Eosinophils 1 % (0-5) 10/20/17 04:10 Hypochromia 1+ 10/20/17 04:10 Platelet Estimate ADEQUATE (NORMAL) 10/20/17 04:10 Eos Smear Source URINE 10/20/17 08:50 Eos Smear Total Cells FEW EOSINOPHILS SEEN (NONE SEEN) 10/20/17 08:50 PT 11.5 SECONDS (9.5-11.5) 10/18/17 22:00 INR 1.10 (0.5-1.4) 10/18/17 22:00 Specimen Source Arterial 10/21/17 08:30 Sample Site RB 10/21/17 08:30 pH 7.47 (7.35-7.45) H 10/21/17 08:30 pCO2 29.0 mmHg (35.0-45.0) L 10/21/17 08:30 pO2 64.0 mmHg (80.0-100.0) L 10/21/17 08:30 HCO3 23.6 mEq/L (20.0-26.0) 10/21/17 08:30 Base Excess -1.6 mEq/L (-3.0-3.0) 10/21/17 08:30 O2 Saturation 93.0 % (92.0-100.0) 10/21/17 08:30 Vasquez Test NA 10/21/17 08:30 Vent Rate 12 10/21/17 08:30 Inspired O2 45 10/21/17 08:30 Tidal Volume 350 10/21/17 08:30 PEEP 4 10/21/17 08:30 Pressure (ins/psv/peep) NA 10/21/17 08:30 Critical Value SH 10/21/17 08:30 Sodium 148 mEq/L (136-145) H 10/21/17 04:13 Potassium 2.7 mEq/L (3.5-5.1) L* 10/21/17 04:13 Chloride 119 mEq/L (98-107) H 10/21/17 04:13 Carbon Dioxide 21.0 mEq/L (21.0-31.0) 10/21/17 04:13 Anion Gap 10.7 (7.0-16.0) 10/21/17 04:13 BUN 33 mg/dL (7-25) H 10/21/17 04:13 Creatinine 0.4 mg/dL (0.6-1.2) L 10/21/17 04:13 Est GFR ( Amer) TNP 10/21/17 04:13 Est GFR (Non-Af Amer) TNP 10/21/17 04:13 BUN/Creatinine Ratio 82.5 10/21/17 04:13 Glucose 160 mg/dL (70-105) H 10/21/17 04:13 Whole Bld Lactic Acid 3.67 mmol/L (0.60-1.99) H* 10/19/17 07:30 Uric Acid 4.1 mg/dL (2.3-6.6) 10/20/17 04:10 Calcium 8.7 mg/dL (8.6-10.3) 10/21/17 04:13 Magnesium 2.1 mg/dL (1.9-2.7) 10/21/17 04:13 Total Bilirubin 0.5 mg/dL (0.3-1.0) 10/20/17 04:10 AST 19 U/L (13-39) 10/20/17 04:10 ALT 13 U/L (7-52) 10/20/17 04:10 Alkaline Phosphatase 34 U/L (34-104) 10/20/17 04:10 Ammonia 33 umol/L (16-53) 10/20/17 04:10 Creatine Kinase 136 U/L (30-223) 10/18/17 22:00 Troponin I 0.07 ng/mL (0.01-0.05) H* 10/18/17 22:00 B-Natriuretic Peptide 275.0 pg/mL (5.0-100.0) H 10/18/17 22:00 Total Protein 5.4 gm/dL (6.0-8.3) L 10/20/17 04:10 Albumin 2.6 gm/dL (3.7-5.3) L 10/20/17 04:10 Globulin 2.8 gm/dL 10/20/17 04:10 Albumin/Globulin Ratio 0.9 (1.0-1.8) L 10/20/17 04:10 Triglycerides 130 mg/dL (<150) 10/18/17 22:00 Cholesterol 111 mg/dL (<200) 10/18/17 22:00 LDL Cholesterol Direct 54 mg/dL (75-193) L 10/18/17 22:00 HDL Cholesterol 37 mg/dL (23-92) 10/18/17 22:00 Amylase 36 U/L (29-103) 10/18/17 22:00 Lipase 6 U/L (11-82) L 10/18/17 22:00 TSH 4.53 uIU/ml (0.34-5.60) 10/19/17 04:40 Urine Source RANDOM 10/19/17 06:30 Urine Color YELLOW 10/19/17 06:30 Urine Clarity CLOUDY (CLEAR) H 10/19/17 06:30 Urine pH 8.5 (4.6 - 8.0) 10/19/17 06:30 Ur Specific [place] 1.015 (1.005-1.030) 10/19/17 06:30 Urine Protein >=300 mg/dL (NEGATIVE) 10/19/17 06:30 Urine Glucose (UA) NEGATIVE mg/dL (NEGATIVE) 10/19/17 06:30 Urine Ketones NEGATIVE mg/dL (NEGATIVE) 10/19/17 06:30 Urine Blood MODERATE (NEGATIVE) H 10/19/17 06:30 Urine Nitrate NEGATIVE (NEGATIVE) 10/19/17 06:30 Urine Bilirubin NEGATIVE (NEGATIVE) 10/19/17 06:30 Urine Urobilinogen 0.2 E.U./dL (0.2 - 1.0) 10/19/17 06:30 Ur Leukocyte Esterase LARGE (NEGATIVE) H 10/19/17 06:30 Urine RBC 10-25 /hpf (0-5) H 10/19/17 06:30 Urine WBC >100 /hpf (0-5) H 10/19/17 06:30 Ur Epithelial Cells OCCASIONAL /lpf (FEW) 10/19/17 06:30 Urine Bacteria MANY /hpf (NONE SEEN) H 10/19/17 06:30 Ur Random Sodium 35 mmol/L 10/20/17 07:07 Urine Creatinine 48.0 mg/dl (28.0-217.0) 10/20/17 07:07 Random Vancomycin 5.4 ug/mL (5.0-40.0) 10/20/17 04:10 Blood Type O POSITIVE 10/20/17 07:30 Antibody Screen NEGATIVE 10/20/17 07:30 Crossmatch See Detail 10/20/17 07:30 - Physical Exam Vitals and I&O: Vital Signs Temp 100.2 F 10/21/17 12:02 Pulse 107 10/21/17 13:00 Resp 37 10/21/17 15:02 BP 134/73 10/21/17 13:00 Pulse Ox 94 10/21/17 15:02 Intake & Output 10/20/17 10/21/17 10/21/17 18:59 06:59 18:59 Intake Total 2394.423 50 810 Output Total 1250 1390 Balance 1144.423 50 -580 Weight (lbs) 53.07 kg 54.431 kg Intake: Intake, IV Amount 1642.423 50 D5-0.9%Ns 1,000 ml @ 125 1000 mls/hr IV .Q8H EZEKIEL Rx#: [id number] D5-0.9%Ns 1,000 ml @ 60 7 0 mls/hr IV .[id number] [facility] Rx #:[id number] Norepinephrine 4 mg In 23.368 Dextrose 5% 250 ml @ 8 MCG/MIN 30.48 mls/hr IV TITR PRN Rx#:[id number] Piperacillin Sodium/ 100 50 Tazobact 3.375 gm In Sodium Chloride 0.9% 50 ml @ 100 mls/hr IV Q8H [facility] Rx#:[id number] Potassium Chloride 30 meq 262.055 In Sodium Chloride 0.9% 250 ml @ 88.333 mls/hr IV X1 ONE Rx#:[id number] Vancomycin HCl 1 gm In 250 Sodium Chloride 0.9% 250 ml @ 165 mls/hr IV Q24H [facility] Rx#:[id number] Oral 0 0 Tube Feeding 342 750 Blood Product 350 Other 60 60 Output: Urine 1250 1390 Other: # Bowel Movements 1 1 Stool Characteristics Soft Soft Brown Brown Active Medications: Current Medications Acetaminophen (Tylenol 650mg/20.3ml Suspension) 500 mg GT Q4H PRN PRN Reason: Pain (Moderate) Stop: 12/18/17 21:04 Last Admin: 10/21/17 12:25 Dose: 500 mg Acetaminophen (Tylenol 650mg/20.3ml Suspension) 325 mg GT Q4H PRN PRN Reason: Pain or Fever >101 Stop: 12/18/17 21:05 Albuterol Sulfate (Albuterol 2.5mg/3ml Neb Ud) 2.5 mg HHN Q4H PRN PRN Reason: Wheezing Stop: 12/18/17 01:25 Last Admin: 10/19/17 18:52 Dose: 2.5 mg Albuterol/Ipratropium (Duoneb Neb) 3 ml HHN Q4HRT [facility] Stop: 12/19/17 02:59 Last Admin: 10/21/17 15:02 Dose: 3 ml Bisacodyl (Dulcolax 10 Mg Supp) 10 mg RC DAILY PRN PRN Reason: Constipation Stop: 12/18/17 20:52 Budesonide (Pulmicort) 0.5 mg HHN BIDRT [facility] Stop: 12/19/17 06:59 Last Admin: 10/21/17 06:41 Dose: 0.5 mg Carbamazepine (Tegretol) 200 mg GT BID EZEKIEL PRN Reason: Protocol Stop: 12/19/17 08:59 Last Admin: 10/21/17 08:46 Dose: 200 mg Hydralazine HCl (Apresoline 20 Mg/Ml) 10 mg IV Q6HR PRN PRN Reason: SBP >160 Stop: 12/20/17 10:38 Last Admin: 10/21/17 11:34 Dose: 10 mg Piperacillin Sod/Tazobactam (Sod 3.375 gm/ Sodium Chloride) 50 mls @ 100 mls/ hr IV Q8H [facility] Stop: 12/18/17 01:59 Last Admin: 10/21/17 11:34 Dose: 100 mls/hr Vancomycin HCl 1 gm/ Sodium (Chloride) 250 mls @ 165 mls/hr IV Q24H [facility] Stop: 12/19/17 10:59 Last Admin: 10/21/17 12:26 Dose: 165 mls/hr Potassium Chloride/Dextrose/Sod Cl (D5-0.45ns W/30 Meq Kcl) 1,000 mls @ 60 mls/ hr IV .[id number] [facility] Stop: 12/20/17 16:14 Miscellaneous (Vancomycin Iv Per Pharmacy) 1 ea PRN PRN PRN Reason: PROTOCOL Stop: 12/18/17 01:10 Miscellaneous (Clinical Monitoring) 1 ea PRN PRN PRN Reason: RENAL Stop: 12/18/17 12:33 Miscellaneous (Probiotic Screen) 1 ea PRN PRN PRN Reason: PROTOCOL Stop: 12/18/17 16:25 General: Moderate distress HEENT: Atraumatic, Mucous membr. moist/pink Neck: Supple, +2 carotid pulse wo bruit Cardiovascular: Regular rate, Normal S1, Normal S2 Lungs: Other (harsh rhonhci) Abdomen: Bowel sounds, Soft Extremities: no Edema Neurological: Sensation intact Skin: no Rash Psych/Mental Status: Mood NL - Procedures Procedures: Procedures Procedure Code Date EGD PLACE GASTROSTOMY TUBE 19632 08/28/17 INSERTION OF FEEDING DEVICE INTO STOMACH, ENDO [id number] 08/28/17 Assessment/Plan - Assessment Assessment: FLORIDALMA Shock Septic Sepsis 2/2 HAP, Cx UTI ARF on BIPAP Lactic acidosis Severe Malnutrition Hypokalemia Anemia acute on CD - Plan Plan: Lab - Result Diagrams 10/20/17 04:10 10/20/17 04:10 Current Medications Acetaminophen (Tylenol 650mg/20.3ml Suspension) 500 mg GT Q4H PRN PRN Reason: Pain (Moderate) Stop: 12/18/17 21:04 Last Admin: 10/20/17 08:58 Dose: 500 mg Acetaminophen (Tylenol 650mg/20.3ml Suspension) 325 mg GT Q4H PRN PRN Reason: Pain or Fever >101 Stop: 12/18/17 21:05 Albuterol Sulfate (Albuterol 2.5mg/3ml Neb Ud) 2.5 mg HHN Q4H PRN PRN Reason: Wheezing Stop: 12/18/17 01:25 Last Admin: 10/19/17 18:52 Dose: 2.5 mg Albuterol/Ipratropium (Duoneb Neb) 3 ml HHN Q4HRT EZEKIEL Stop: 12/19/17 02:59 Last Admin: 10/20/17 11:12 Dose: 3 ml Bisacodyl (Dulcolax 10 Mg Supp) 10 mg RC DAILY PRN PRN Reason: Constipation Stop: 12/18/17 20:52 Budesonide (Pulmicort) 0.5 mg HHN BIDRT EZEKIEL Stop: 12/19/17 06:59 Last Admin: 10/20/17 06:49 Dose: 0.5 mg Carbamazepine (Tegretol) 200 mg GT BID EZEKIEL PRN Reason: Protocol Stop: 12/19/17 08:59 Last Admin: 10/20/17 08:59 Dose: 200 mg Piperacillin Sod/Tazobactam (Sod 3.375 gm/ Sodium Chloride) 50 mls @ 100 mls/ hr IV Q8H [facility] Stop: 12/18/17 01:59 Last Infusion: 10/20/17 13:00 Dose: Infused Norepinephrine Bitartrate 4 mg (/ Dextrose) 254 mls @ 30.48 mls/hr IV TITR PRN ; Protocol; 8 MCG/MIN PRN Reason: BP MAINTENANCE (PER PROTOCOL) Stop: 12/18/17 12:11 Last Titration: 10/20/17 08:36 Dose: Infused Dextrose/Sodium Chloride (D5-0.9%Ns) 1,000 mls @ 125 mls/hr IV .Q8H EZEKIEL Stop: 12/18/17 15:14 Last Admin: 10/20/17 06:25 Dose: 125 mls/hr Vancomycin HCl 1 gm/ Sodium (Chloride) 250 mls @ 165 mls/hr IV Q24H EZEKIEL Stop: 12/19/17 10:59 Last Infusion: 10/20/17 12:36 Dose: Infused Miscellaneous (Vancomycin Iv Per Pharmacy) 1 ea PRN PRN PRN Reason: PROTOCOL Stop: 12/18/17 01:10 Miscellaneous (Clinical Monitoring) 1 ea PRN PRN PRN Reason: RENAL Stop: 12/18/17 12:33 Miscellaneous (Probiotic Screen) 1 [facility] PRN PRN PRN Reason: PROTOCOL Stop: 12/18/17 16:25 Lab - Result Diagrams 10/21/17 04:13 10/21/17 04:13 Kidney fnc improving replace K CXR shows worsening B/L infiltrates decrease IVF, switch to D5 09/11 NS Nutritional Asmnt/Malnutr-PDOC - Dietary Evaluation Malnutrition Findings (Please click <Entered> for more info): Nutritional Asmnt/Malnutrition Start: 10/19/17 15: 37 Text: Status: Complete Freq: Document 10/19/17 15:39 LCHENG (Rec: 10/19/17 15:58 LCHENG [email or web address]) Nutritional Asmnt/Malnutrition Patient General Information Nutritional Screening High Risk Consult Diagnosis sepsis, PNA Pertinent Medical Hx/Surgical Hx HTN, asthma/COPD, CVA/TIA, PUD /GERD Subjective Information Consult received for malnutrition and diet. Pt seen resting in bed, non-verbal, on non-rebreather noted. Pt has PEG noted. Spoke with RN, RN stated TF planned to start today. Current Diet Order/ Nutrition Support no diet order Pertinent Medications D5-0.9%NS, piperacillin Pertinent Labs 10/19 Na 135, K 4.5, Cl 104, BUN 69, Cr 2.0, Glucose 133, ca 8 .0 Nutritional Hx/Data Height 1.6 m Height (Calculated Centimeters) 160.0 Current Weight (lbs) 53.025 kg Weight (Calculated Kilograms) 53.0 Weight (Calculated Grams) 37249.9 [place] Body Weight 115 % [place] Body Weight 101 Body Mass Index (BMI) 20.7 Weight Status Approriate GI Symptoms GI Symptoms None Last BM none Difficult in: None Skin Integrity/Comment: pressure area reddned to right hip and left hip, decubitus ulceration to sacrococcyx skin intact, Zhang 10 Estimated Nutritional Goals BEE in Kcals: Using Current wt Calories/Kcals/Kg 25-30 Kcals Calculated 9539-7758 Protein: Using Current wt Protein g/k.2-1.4 Protein Calculated 64-74 Fluid: ml 1325-1590ml (1ml/kcal) Nutritional Problem 1. Problem Problem increased nutrition needs ( calorie and protein) Etiology increased metabolic demand and energy expenditure Signs/Symptoms: dx of PNA and sepsis and impaired skin integrity Malnutrition Alert Protein-Calorie Malnutrition N/A Is there a minimum of two criteria No selected? Query Text:Check all the applicable criteria. A minimum of two criteria are recommended for diagnosis of either severe or non-severe malnutrition. Intervention/Recommendation Comments 1. Recocommend to start TF Nutren Pulmonary at 20ml/hr for first 24 hours, increased to goal rate of 40ml/hr as tolerated. This will provide 1440kcal, 65g protein and 750ml free water, meeting 100% of nutritional needs. 2. Monitor TF rate, tolerance, wt daily, skin integrity and labs 3. F/U as high risk in 2-3 days, 10/21-10/22 Expected Outcomes/Goals Expected Outcomes/Goals 1. Pt to meet at least 75% of nutritional needs via nutrition support with tolerance 2. Wt stability, skin to remain intact, labs to approach WNL.
--- NOTE | 2017-10-21 20:43 | Progress Notes ---
DATE: 10/21/2017 PROBLEM LIST: 1. Acute respiratory failure, improving. 2. Sepsis, improving. 3. Underlying significant organic brain syndrome. SYMPTOMS: Nil. A little bit more awake though not appropriately responding and no respiratory distress, etc. PHYSICAL EXAMINATION: VITAL SIGNS: T-max 100.2, heart rate is 104, blood pressure 134/73, saturation 95. NECK: Veins not visualized. CHEST: Shows diminished air entry with occasional rhonchi. HEART: Regular. ABDOMEN: Soft, nontender. EXTREMITIES: Shows areas of contracture ect. LABORATORY DATA: The patient's chest x-ray shows a little more haziness in the left base, but otherwise unremarkable. The patient clinically is doing better with a slight increase in white count and ABG, pO2 is currently on 64 on 40% of oxygen. ASSESSMENT: The patient clinically may be slightly better, but otherwise unchanged. PLANS AND SUGGESTIONS: Continue supportive care, etc. We will repeat some of the laboratory parameters tomorrow and will go from there. JOB# [id number]
[2017-10-22] MEDS: Albuterol/Ipratropium Neb 3 ML AERS HHN SCH ×6 (03:29→22:53)
[2017-10-22 06:22] LABS: ANION GAP 11.7 (7.0-16.0); BUN - UREA NITROGEN 27 mg/dL (7-25); CALCIUM SERUM 8.5 mg/dL (8.6-10.3); CARBON DIOXIDE 22.7 mEq/L (21.0-31.0); CHLORIDE 118 mEq/L (98-107); CREATININE - SERUM 0.5 mg/dL (0.6-1.2); GLUCOSE 152 mg/dL (70-105); SODIUM SERUM 150 mEq/L (136-145)
[2017-10-22 06:25] LABS: POTASSIUM SERUM 2.4 mEq/L (3.5-5.1)
[2017-10-22] MEDS: Budesonide 0.5 Mg/2 mL Ud HHN SCH ×2 (06:35→19:16)
[2017-10-22] MEDS ORDERED: KCL 20mEq/100mL Premix 20 MEQ/100 ML PIGGYBACK IV ONE (06:44)
[2017-10-22] MEDS: carBAMazepine 200 mg/10 mL UDC GT SCH ×2 (08:45→16:28)
--- NOTE | 2017-10-22 13:36 | General Progress Note ---
Subjective - Review of Systems Service Date: 10/22/17 Subjective: stuporous, on NC Objective - Results Result Diagrams: 10/21/17 04:13 10/22/17 05:21 Recent Labs: Laboratory Last Values WBC 19.3 Th/cmm (4.8-10.8) H D 10/21/17 04:13 RBC 3.26 Mil/cmm (3.80-5.20) L 10/21/17 04:13 Hgb 9.9 gm/dL (12-16) L 10/21/17 04:13 Hct 29.0 % (41.0-60) L D 10/21/17 04:13 MCV 88.9 fl (81-100) 10/21/17 04:13 MCH 30.2 pg (27.0-31.0) 10/21/17 04:13 MCHC Differential 34.0 pg (28.0-36.0) 10/21/17 04:13 RDW 15.8 % (11.5-20.0) 10/21/17 04:13 Plt Count 270 Th/cmm (150-400) 10/21/17 04:13 MPV 9.2 fl 10/21/17 04:13 Band Neutrophils % 36 % (0-10) H 10/20/17 04:10 Neutrophils (Manual) 52 % (40-80) 10/20/17 04:10 Lymphocytes 7 % (20-50) L 10/20/17 04:10 Monocytes 4 % (2-10) 10/20/17 04:10 Eosinophils 1 % (0-5) 10/20/17 04:10 Hypochromia 1+ 10/20/17 04:10 Platelet Estimate ADEQUATE (NORMAL) 10/20/17 04:10 Eos Smear Source URINE 10/20/17 08:50 Eos Smear Total Cells FEW EOSINOPHILS SEEN (NONE SEEN) 10/20/17 08:50 PT 11.5 SECONDS (9.5-11.5) 10/18/17 22:00 INR 1.10 (0.5-1.4) 10/18/17 22:00 Specimen Source Arterial 10/21/17 08:30 Sample Site RB 10/21/17 08:30 pH 7.47 (7.35-7.45) H 10/21/17 08:30 pCO2 29.0 mmHg (35.0-45.0) L 10/21/17 08:30 pO2 64.0 mmHg (80.0-100.0) L 10/21/17 08:30 HCO3 23.6 mEq/L (20.0-26.0) 10/21/17 08:30 Base Excess -1.6 mEq/L (-3.0-3.0) 10/21/17 08:30 O2 Saturation 93.0 % (92.0-100.0) 10/21/17 08:30 Vasquez Test NA 10/21/17 08:30 Vent Rate 12 10/21/17 08:30 Inspired O2 45 10/21/17 08:30 Tidal Volume 350 10/21/17 08:30 PEEP 4 10/21/17 08:30 Pressure (ins/psv/peep) NA 10/21/17 08:30 Critical Value SH 10/21/17 08:30 Sodium 150 mEq/L (136-145) H 10/22/17 05:21 Potassium 2.4 mEq/L (3.5-5.1) L* 10/22/17 05:21 Chloride 118 mEq/L (98-107) H 10/22/17 05:21 Carbon Dioxide 22.7 mEq/L (21.0-31.0) 10/22/17 05:21 Anion Gap 11.7 (7.0-16.0) 10/22/17 05:21 BUN 27 mg/dL (7-25) H 10/22/17 05:21 Creatinine 0.5 mg/dL (0.6-1.2) L 10/22/17 05:21 Est GFR ( Amer) TNP 10/22/17 05:21 Est GFR (Non-Af Amer) TNP 10/22/17 05:21 BUN/Creatinine Ratio 54.0 10/22/17 05:21 Glucose 152 mg/dL (70-105) H 10/22/17 05:21 Whole Bld Lactic Acid 3.67 mmol/L (0.60-1.99) H* 10/19/17 07:30 Uric Acid 4.1 mg/dL (2.3-6.6) 10/20/17 04:10 Calcium 8.5 mg/dL (8.6-10.3) L 10/22/17 05:21 Magnesium 2.0 mg/dL (1.9-2.7) 10/22/17 05:21 Total Bilirubin 0.5 mg/dL (0.3-1.0) 10/20/17 04:10 AST 19 U/L (13-39) 10/20/17 04:10 ALT 13 U/L (7-52) 10/20/17 04:10 Alkaline Phosphatase 34 U/L (34-104) 10/20/17 04:10 Ammonia 33 umol/L (16-53) 10/20/17 04:10 Creatine Kinase 136 U/L (30-223) 10/18/17 22:00 Troponin I 0.07 ng/mL (0.01-0.05) H* 10/18/17 22:00 B-Natriuretic Peptide 275.0 pg/mL (5.0-100.0) H 10/18/17 22:00 Total Protein 5.4 gm/dL (6.0-8.3) L 10/20/17 04:10 Albumin 2.6 gm/dL (3.7-5.3) L 10/20/17 04:10 Globulin 2.8 gm/dL 10/20/17 04:10 Albumin/Globulin Ratio 0.9 (1.0-1.8) L 10/20/17 04:10 Triglycerides 130 mg/dL (<150) 10/18/17 22:00 Cholesterol 111 mg/dL (<200) 10/18/17 22:00 LDL Cholesterol Direct 54 mg/dL (75-193) L 10/18/17 22:00 HDL Cholesterol 37 mg/dL (23-92) 10/18/17 22:00 Amylase 36 U/L (29-103) 10/18/17 22:00 Lipase 6 U/L (11-82) L 10/18/17 22:00 TSH 4.53 uIU/ml (0.34-5.60) 10/19/17 04:40 Urine Source RANDOM 10/19/17 06:30 Urine Color YELLOW 10/19/17 06:30 Urine Clarity CLOUDY (CLEAR) H 10/19/17 06:30 Urine pH 8.5 (4.6 - 8.0) 10/19/17 06:30 Ur Specific [place] 1.015 (1.005-1.030) 10/19/17 06:30 Urine Protein >=300 mg/dL (NEGATIVE) 10/19/17 06:30 Urine Glucose (UA) NEGATIVE mg/dL (NEGATIVE) 10/19/17 06:30 Urine Ketones NEGATIVE mg/dL (NEGATIVE) 10/19/17 06:30 Urine Blood MODERATE (NEGATIVE) H 10/19/17 06:30 Urine Nitrate NEGATIVE (NEGATIVE) 10/19/17 06:30 Urine Bilirubin NEGATIVE (NEGATIVE) 10/19/17 06:30 Urine Urobilinogen 0.2 E.U./dL (0.2 - 1.0) 10/19/17 06:30 Ur Leukocyte Esterase LARGE (NEGATIVE) H 10/19/17 06:30 Urine RBC 10-25 /hpf (0-5) H 10/19/17 06:30 Urine WBC >100 /hpf (0-5) H 10/19/17 06:30 Ur Epithelial Cells OCCASIONAL /lpf (FEW) 10/19/17 06:30 Urine Bacteria MANY /hpf (NONE SEEN) H 10/19/17 06:30 Ur Random Sodium 35 mmol/L 10/20/17 07:07 Urine Creatinine 39.0 mg/dl (Not Estab.) 10/20/17 07:07 Urine Microalbumin 351.0 ug/mL (Not Estab.) 10/20/17 07:07 Vancomycin Trough 9.0 ug/mL (10-20) L 10/22/17 10:50 Random Vancomycin 5.4 ug/mL (5.0-40.0) 10/20/17 04:10 Blood Type O POSITIVE 10/20/17 07:30 Antibody Screen NEGATIVE 10/20/17 07:30 Crossmatch See Detail 10/20/17 07:30 - Physical Exam Vitals and I&O: Vital Signs Temp 98.2 F 10/22/17 04:00 Pulse 95 10/22/17 11:30 Resp 18 10/22/17 11:47 BP 151/80 10/22/17 04:00 Pulse Ox 92 10/22/17 11:30 Intake & Output 10/21/17 10/22/17 10/22/17 18:59 06:59 18:59 Intake Total 1160 730 Output Total 1390 1200 Balance -230 -470 Weight (lbs) 54.431 kg 54.431 kg Intake: Intake, IV Amount 350 50 Piperacillin Sodium/ 100 50 Tazobact 3.375 gm In Sodium Chloride 0.9% 50 ml @ 100 mls/hr IV Q8H [facility] Rx#:[id number] Vancomycin HCl 1 gm In 250 Sodium Chloride 0.9% 250 ml @ 165 mls/hr IV Q24H [facility] Rx#:[id number] Oral 0 Tube Feeding 750 680 Other 60 Output: Urine 1390 1200 Other: # Bowel Movements 1 1 Active Medications: Current Medications Acetaminophen (Tylenol 650mg/20.3ml Suspension) 500 mg GT Q4H PRN PRN Reason: Pain (Moderate) Stop: 12/18/17 21:04 Last Admin: 10/21/17 12:25 Dose: 500 mg Acetaminophen (Tylenol 650mg/20.3ml Suspension) 325 mg GT Q4H PRN PRN Reason: Pain or Fever >101 Stop: 12/18/17 21:05 Albuterol Sulfate (Albuterol 2.5mg/3ml Neb Ud) 2.5 mg HHN Q4H PRN PRN Reason: Wheezing Stop: 12/18/17 01:25 Last Admin: 10/19/17 18:52 Dose: 2.5 mg Albuterol/Ipratropium (Duoneb Neb) 3 ml HHN Q4HRT [facility] Stop: 12/19/17 02:59 Last Admin: 10/22/17 11:15 Dose: 3 ml Bisacodyl (Dulcolax 10 Mg Supp) 10 mg RC DAILY PRN PRN Reason: Constipation Stop: 12/18/17 20:52 Budesonide (Pulmicort) 0.5 mg HHN BIDRT [facility] Stop: 12/19/17 06:59 Last Admin: 10/22/17 06:35 Dose: 0.5 mg Carbamazepine (Tegretol) 200 mg GT BID [facility] PRN Reason: Protocol Stop: 12/19/17 08:59 Last Admin: 10/22/17 08:45 Dose: 200 mg Hydralazine HCl (Apresoline 20 Mg/Ml) 10 mg IV Q6HR PRN PRN Reason: SBP >160 Stop: 12/20/17 10:38 Last Admin: 10/21/17 11:34 Dose: 10 mg Piperacillin Sod/Tazobactam (Sod 3.375 gm/ Sodium Chloride) 50 mls @ 100 mls/ hr IV Q8H [facility] Stop: 12/18/17 01:59 Last Admin: 10/22/17 09:02 Dose: 100 mls/hr Vancomycin HCl 0.75 gm/ Sodium (Chloride) 250 mls @ 165 mls/hr IV Q12H [facility] Stop: 12/21/17 20:59 Potassium Chloride 30 meq/ (Dextrose) 1,015 mls @ 30 mls/hr IV .Q24H [facility] Stop: 12/21/17 13:30 Miscellaneous (Vancomycin Iv Per Pharmacy) 1 [facility] PRN PRN PRN Reason: PROTOCOL Stop: 12/18/17 01:10 Miscellaneous (Clinical Monitoring) 1 [facility] PRN PRN PRN Reason: RENAL Stop: 12/18/17 12:33 Miscellaneous (Probiotic Screen) 1 [facility] PRN PRN PRN Reason: PROTOCOL Stop: 12/18/17 16:25 General: Mild distress HEENT: Atraumatic, Mucous membr. moist/pink Neck: Supple, +2 carotid pulse wo bruit Cardiovascular: Regular rate, Normal S1, Normal S2 Lungs: Other (harsh rhonhci) Abdomen: Bowel sounds, Soft Extremities: no Edema Neurological: Sensation intact Skin: no Rash Psych/Mental Status: Mood NL - Procedures Procedures: Procedures Procedure Code Date ASSISTANCE WITH RESPIRATORY VENTILATION, 24-96 HRS, CPAP [id number] 10/18/[address] GASTROSTOMY TUBE 98415 08/28/17 INSERTION OF FEEDING DEVICE INTO STOMACH, ENDO [id number] 08/28/17 POS AIRWAY PRESSURE CPAP 09061 10/18/17 Assessment/Plan - Assessment Assessment: FLORIDALMA Shock Septic Sepsis 2/2 HAP, Cx UTI ARF on BIPAP Lactic acidosis Severe Malnutrition Hypokalemia Anemia acute on CD - Plan Plan: Lab - Result Diagrams 10/20/17 04:10 10/20/17 04:10 Current Medications Acetaminophen (Tylenol 650mg/20.3ml Suspension) 500 mg GT Q4H PRN PRN Reason: Pain (Moderate) Stop: 12/18/17 21:04 Last Admin: 10/20/17 08:58 Dose: 500 mg Acetaminophen (Tylenol 650mg/20.3ml Suspension) 325 mg GT Q4H PRN PRN Reason: Pain or Fever >101 Stop: 12/18/17 21:05 Albuterol Sulfate (Albuterol 2.5mg/3ml Neb Ud) 2.5 mg HHN Q4H PRN PRN Reason: Wheezing Stop: 12/18/17 01:25 Last Admin: 10/19/17 18:52 Dose: 2.5 mg Albuterol/Ipratropium (Duoneb Neb) 3 ml HHN Q4HRT [facility] Stop: 12/19/17 02:59 Last Admin: 10/20/17 11:12 Dose: 3 ml Bisacodyl (Dulcolax 10 Mg Supp) 10 mg RC DAILY PRN PRN Reason: Constipation Stop: 12/18/17 20:52 Budesonide (Pulmicort) 0.5 mg HHN BIDRT [facility] Stop: 12/19/17 06:59 Last Admin: 10/20/17 06:49 Dose: 0.5 mg Carbamazepine (Tegretol) 200 mg GT BID [facility] PRN Reason: Protocol Stop: 12/19/17 08:59 Last Admin: 10/20/17 08:59 Dose: 200 mg Piperacillin Sod/Tazobactam (Sod 3.375 gm/ Sodium Chloride) 50 mls @ 100 mls/ hr IV Q8H [facility] Stop: 12/18/17 01:59 Last Infusion: 10/20/17 13:00 Dose: Infused Norepinephrine Bitartrate 4 mg (/ Dextrose) 254 mls @ 30.48 mls/hr IV TITR PRN ; Protocol; 8 MCG/MIN PRN Reason: BP MAINTENANCE (PER PROTOCOL) Stop: 12/18/17 12:11 Last Titration: 10/20/17 08:36 Dose: Infused Dextrose/Sodium Chloride (D5-0.9%Ns) 1,000 mls @ 125 mls/hr IV .Q8H [facility] Stop: 12/18/17 15:14 Last Admin: 10/20/17 06:25 Dose: 125 mls/hr Vancomycin HCl 1 gm/ Sodium (Chloride) 250 mls @ 165 mls/hr IV Q24H [facility] Stop: 12/19/17 10:59 Last Infusion: 10/20/17 12:36 Dose: Infused Miscellaneous (Vancomycin Iv Per Pharmacy) 1 ea PRN PRN PRN Reason: PROTOCOL Stop: 12/18/17 01:10 Miscellaneous (Clinical Monitoring) 1 e[facility] PRN PRN PRN Reason: RENAL Stop: 12/18/17 12:33 Miscellaneous (Probiotic Screen) 1 ea PRN PRN PRN Reason: PROTOCOL Stop: 12/18/17 16:25 Lab - Result Diagrams 10/21/17 04:13 10/22/17 05:21 Kidney fnc improving replace K CXR shows worsening B/L infiltrates decrease IVF, switch to D5 W start spironolactone Nutritional Asmnt/Malnutr-PDOC - Dietary Evaluation Malnutrition Findings (Please click <Entered> for more info): Nutritional Asmnt/Malnutrition Start: 10/19/17 15: 37 Text: Status: Complete Freq: Document 10/19/17 15:39 LCHENG (Rec: 10/19/17 15:58 LCHENG [email or web address]) Nutritional Asmnt/Malnutrition Patient General Information Nutritional Screening High Risk Consult Diagnosis sepsis, PNA Pertinent Medical Hx/Surgical Hx HTN, asthma/COPD, CVA/TIA, PUD /GERD Subjective Information Consult received for malnutrition and diet. Pt seen resting in bed, non-verbal, on non-rebreather noted. Pt has PEG noted. Spoke with RN, RN stated TF planned to start today. Current Diet Order/ Nutrition Support no diet order Pertinent Medications D5-0.9%NS, piperacillin Pertinent Labs 10/19 Na 135, K 4.5, Cl 104, BUN 69, Cr 2.0, Glucose 133, ca 8 .0 Nutritional Hx/Data Height 1.6 m Height (Calculated Centimeters) 160.0 Current Weight (lbs) 53.025 kg Weight (Calculated Kilograms) 53.0 Weight (Calculated Grams) 54249.9 [place] Body Weight 115 % [place] Body Weight 101 Body Mass Index (BMI) 20.7 Weight Status Approriate GI Symptoms GI Symptoms None Last BM none Difficult in: None Skin Integrity/Comment: pressure area reddned to right hip and left hip, decubitus ulceration to sacrococcyx skin intact, Zhang 10 Estimated Nutritional Goals BEE in Kcals: Using Current wt Calories/Kcals/Kg 25-30 Kcals Calculated 2974-3410 Protein: Using Current wt Protein g/k.2-1.4 Protein Calculated 64-74 Fluid: ml 1325-1590ml (1ml/kcal) Nutritional Problem 1. Problem Problem increased nutrition needs ( calorie and protein) Etiology increased metabolic demand and energy expenditure Signs/Symptoms: dx of PNA and sepsis and impaired skin integrity Malnutrition Alert Protein-Calorie Malnutrition N/A Is there a minimum of two criteria No selected? Query Text:Check all the applicable criteria. A minimum of two criteria are recommended for diagnosis of either severe or non-severe malnutrition. Intervention/Recommendation Comments 1. Recocommend to start TF Nutren Pulmonary at 20ml/hr for first 24 hours, increased to goal rate of 40ml/hr as tolerated. This will provide 1440kcal, 65g protein and 750ml free water, meeting 100% of nutritional needs. 2. Monitor TF rate, tolerance, wt daily, skin integrity and labs 3. F/U as high risk in 2-3 days, 10/21-10/22 Expected Outcomes/Goals Expected Outcomes/Goals 1. Pt to meet at least 75% of nutritional needs via nutrition support with tolerance 2. Wt stability, skin to remain intact, labs to approach WNL.
--- NOTE | 2017-10-22 16:17 | General Progress Note ---
Subjective - Review of Systems Events since last encounter: no distress Objective - Results Result Diagrams: 10/21/17 04:13 10/22/17 05:21 Recent Labs: Laboratory Last Values WBC 19.3 Th/cmm (4.8-10.8) H D 10/21/17 04:13 RBC 3.26 Mil/cmm (3.80-5.20) L 10/21/17 04:13 Hgb 9.9 gm/dL (12-16) L 10/21/17 04:13 Hct 29.0 % (41.0-60) L D 10/21/17 04:13 MCV 88.9 fl (81-100) 10/21/17 04:13 MCH 30.2 pg (27.0-31.0) 10/21/17 04:13 MCHC Differential 34.0 pg (28.0-36.0) 10/21/17 04:13 RDW 15.8 % (11.5-20.0) 10/21/17 04:13 Plt Count 270 Th/cmm (150-400) 10/21/17 04:13 MPV 9.2 fl 10/21/17 04:13 Band Neutrophils % 36 % (0-10) H 10/20/17 04:10 Neutrophils (Manual) 52 % (40-80) 10/20/17 04:10 Lymphocytes 7 % (20-50) L 10/20/17 04:10 Monocytes 4 % (2-10) 10/20/17 04:10 Eosinophils 1 % (0-5) 10/20/17 04:10 Hypochromia 1+ 10/20/17 04:10 Platelet Estimate ADEQUATE (NORMAL) 10/20/17 04:10 Eos Smear Source URINE 10/20/17 08:50 Eos Smear Total Cells FEW EOSINOPHILS SEEN (NONE SEEN) 10/20/17 08:50 PT 11.5 SECONDS (9.5-11.5) 10/18/17 22:00 INR 1.10 (0.5-1.4) 10/18/17 22:00 Specimen Source Arterial 10/21/17 08:30 Sample Site RB 10/21/17 08:30 pH 7.47 (7.35-7.45) H 10/21/17 08:30 pCO2 29.0 mmHg (35.0-45.0) L 10/21/17 08:30 pO2 64.0 mmHg (80.0-100.0) L 10/21/17 08:30 HCO3 23.6 mEq/L (20.0-26.0) 10/21/17 08:30 Base Excess -1.6 mEq/L (-3.0-3.0) 10/21/17 08:30 O2 Saturation 93.0 % (92.0-100.0) 10/21/17 08:30 Vasquez Test NA 10/21/17 08:30 Vent Rate 12 10/21/17 08:30 Inspired O2 45 10/21/17 08:30 Tidal Volume 350 10/21/17 08:30 PEEP 4 10/21/17 08:30 Pressure (ins/psv/peep) NA 10/21/17 08:30 Critical Value SH 10/21/17 08:30 Sodium 150 mEq/L (136-145) H 10/22/17 05:21 Potassium 2.4 mEq/L (3.5-5.1) L* 10/22/17 05:21 Chloride 118 mEq/L (98-107) H 10/22/17 05:21 Carbon Dioxide 22.7 mEq/L (21.0-31.0) 10/22/17 05:21 Anion Gap 11.7 (7.0-16.0) 10/22/17 05:21 BUN 27 mg/dL (7-25) H 10/22/17 05:21 Creatinine 0.5 mg/dL (0.6-1.2) L 10/22/17 05:21 Est GFR ( Amer) TNP 10/22/17 05:21 Est GFR (Non-Af Amer) TNP 10/22/17 05:21 BUN/Creatinine Ratio 54.0 10/22/17 05:21 Glucose 152 mg/dL (70-105) H 10/22/17 05:21 Whole Bld Lactic Acid 3.67 mmol/L (0.60-1.99) H* 10/19/17 07:30 Uric Acid 4.1 mg/dL (2.3-6.6) 10/20/17 04:10 Calcium 8.5 mg/dL (8.6-10.3) L 10/22/17 05:21 Magnesium 2.0 mg/dL (1.9-2.7) 10/22/17 05:21 Total Bilirubin 0.5 mg/dL (0.3-1.0) 10/20/17 04:10 AST 19 U/L (13-39) 10/20/17 04:10 ALT 13 U/L (7-52) 10/20/17 04:10 Alkaline Phosphatase 34 U/L (34-104) 10/20/17 04:10 Ammonia 33 umol/L (16-53) 10/20/17 04:10 Creatine Kinase 136 U/L (30-223) 10/18/17 22:00 Troponin I 0.07 ng/mL (0.01-0.05) H* 10/18/17 22:00 B-Natriuretic Peptide 275.0 pg/mL (5.0-100.0) H 10/18/17 22:00 Total Protein 5.4 gm/dL (6.0-8.3) L 10/20/17 04:10 Albumin 2.6 gm/dL (3.7-5.3) L 10/20/17 04:10 Globulin 2.8 gm/dL 10/20/17 04:10 Albumin/Globulin Ratio 0.9 (1.0-1.8) L 10/20/17 04:10 Triglycerides 130 mg/dL (<150) 10/18/17 22:00 Cholesterol 111 mg/dL (<200) 10/18/17 22:00 LDL Cholesterol Direct 54 mg/dL (75-193) L 10/18/17 22:00 HDL Cholesterol 37 mg/dL (23-92) 10/18/17 22:00 Amylase 36 U/L (29-103) 10/18/17 22:00 Lipase 6 U/L (11-82) L 10/18/17 22:00 TSH 4.53 uIU/ml (0.34-5.60) 10/19/17 04:40 Urine Source RANDOM 10/19/17 06:30 Urine Color YELLOW 10/19/17 06:30 Urine Clarity CLOUDY (CLEAR) H 10/19/17 06:30 Urine pH 8.5 (4.6 - 8.0) 10/19/17 06:30 Ur Specific [place] 1.015 (1.005-1.030) 10/19/17 06:30 Urine Protein >=300 mg/dL (NEGATIVE) 10/19/17 06:30 Urine Glucose (UA) NEGATIVE mg/dL (NEGATIVE) 10/19/17 06:30 Urine Ketones NEGATIVE mg/dL (NEGATIVE) 10/19/17 06:30 Urine Blood MODERATE (NEGATIVE) H 10/19/17 06:30 Urine Nitrate NEGATIVE (NEGATIVE) 10/19/17 06:30 Urine Bilirubin NEGATIVE (NEGATIVE) 10/19/17 06:30 Urine Urobilinogen 0.2 E.U./dL (0.2 - 1.0) 10/19/17 06:30 Ur Leukocyte Esterase LARGE (NEGATIVE) H 10/19/17 06:30 Urine RBC 10-25 /hpf (0-5) H 10/19/17 06:30 Urine WBC >100 /hpf (0-5) H 10/19/17 06:30 Ur Epithelial Cells OCCASIONAL /lpf (FEW) 10/19/17 06:30 Urine Bacteria MANY /hpf (NONE SEEN) H 10/19/17 06:30 Ur Random Sodium 35 mmol/L 10/20/17 07:07 Urine Creatinine 39.0 mg/dl (Not Estab.) 10/20/17 07:07 Urine Microalbumin 351.0 ug/mL (Not Estab.) 10/20/17 07:07 Vancomycin Trough 9.0 ug/mL (10-20) L 10/22/17 10:50 Random Vancomycin 5.4 ug/mL (5.0-40.0) 10/20/17 04:10 Blood Type O POSITIVE 10/20/17 07:30 Antibody Screen NEGATIVE 10/20/17 07:30 Crossmatch See Detail 10/20/17 07:30 - Physical Exam Vitals and I&O: Vital Signs Temp 98.6 F 10/22/17 15:29 Pulse 94 10/22/17 15:29 Resp 18 10/22/17 15:33 BP 163/84 10/22/17 15:29 Pulse Ox 98 10/22/17 15:29 Intake & Output 10/21/17 10/22/17 10/22/17 18:59 06:59 18:59 Intake Total 1160 730 Output Total 1390 1200 Balance -230 -470 Weight (lbs) 54.431 kg 54.431 kg Intake: Intake, IV Amount 350 50 Piperacillin Sodium/ 100 50 Tazobact 3.375 gm In Sodium Chloride 0.9% 50 ml @ 100 mls/hr IV Q8H [facility] Rx#:[id number] Vancomycin HCl 1 gm In 250 Sodium Chloride 0.9% 250 ml @ 165 mls/hr IV Q24H [facility] Rx#:[id number] Oral 0 Tube Feeding 750 680 Other 60 Output: Urine 1390 1200 Other: # Bowel Movements 1 1 Active Medications: Current Medications Acetaminophen (Tylenol 650mg/20.3ml Suspension) 500 mg GT Q4H PRN PRN Reason: Pain (Moderate) Stop: 12/18/17 21:04 Last Admin: 10/21/17 12:25 Dose: 500 mg Acetaminophen (Tylenol 650mg/20.3ml Suspension) 325 mg GT Q4H PRN PRN Reason: Pain or Fever >101 Stop: 12/18/17 21:05 Albuterol Sulfate (Albuterol 2.5mg/3ml Neb Ud) 2.5 mg HHN Q4H PRN PRN Reason: Wheezing Stop: 12/18/17 01:25 Last Admin: 10/19/17 18:52 Dose: 2.5 mg Albuterol/Ipratropium (Duoneb Neb) 3 ml HHN Q4HRT [facility] Stop: 12/19/17 02:59 Last Admin: 10/22/17 14:29 Dose: 3 ml Bisacodyl (Dulcolax 10 Mg Supp) 10 mg RC DAILY PRN PRN Reason: Constipation Stop: 12/18/17 20:52 Budesonide (Pulmicort) 0.5 mg HHN BIDRT [facility] Stop: 12/19/17 06:59 Last Admin: 10/22/17 06:35 Dose: 0.5 mg Carbamazepine (Tegretol) 200 mg GT BID [facility] PRN Reason: Protocol Stop: 12/19/17 08:59 Last Admin: 10/22/17 08:45 Dose: 200 mg Hydralazine HCl (Apresoline 20 Mg/Ml) 10 mg IV Q6HR PRN PRN Reason: SBP >160 Stop: 12/20/17 10:38 Last Admin: 10/21/17 11:34 Dose: 10 mg Piperacillin Sod/Tazobactam (Sod 3.375 gm/ Sodium Chloride) 50 mls @ 100 mls/ hr IV Q8H [facility] Stop: 12/18/17 01:59 Last Admin: 10/22/17 09:02 Dose: 100 mls/hr Vancomycin HCl 0.75 gm/ Sodium (Chloride) 250 mls @ 165 mls/hr IV Q12H [facility] Stop: 12/21/17 20:59 Potassium Chloride 30 meq/ (Dextrose) 1,015 mls @ 30 mls/hr IV .Q24H [facility] Stop: 12/21/17 13:30 Miscellaneous (Vancomycin Iv Per Pharmacy) 1 ea PRN PRN PRN Reason: PROTOCOL Stop: 12/18/17 01:10 Miscellaneous (Clinical Monitoring) 1 ea PRN PRN PRN Reason: RENAL Stop: 12/18/17 12:33 Miscellaneous (Probiotic Screen) 1 [facility] PRN PRN PRN Reason: PROTOCOL Stop: 12/18/17 16:25 Spironolactone (Aldactone) 25 mg PO BID [facility] Stop: 12/21/17 16:59 General: Mild distress HEENT: Atraumatic, Mucous membr. moist/pink Neck: Supple, +2 carotid pulse wo bruit Cardiovascular: Regular rate, Normal S1, Normal S2 Lungs: Other (harsh rhonhci) Abdomen: Bowel sounds, Soft Extremities: no Edema Neurological: Sensation intact Skin: no Rash Psych/Mental Status: Mood NL - Procedures Procedures: Procedures Procedure Code Date ASSISTANCE WITH RESPIRATORY VENTILATION, 24-96 HRS, CPAP [id number] 10/18/[address] GASTROSTOMY TUBE 88495 08/28/17 INSERTION OF FEEDING DEVICE INTO STOMACH, ENDO [id number] 08/28/17 POS AIRWAY PRESSURE CPAP 04041 10/18/17 Nutritional Asmnt/Malnutr-PDOC - Dietary Evaluation Malnutrition Findings (Please click <Entered> for more info): Nutritional Asmnt/Malnutrition Start: 10/19/17 15: 37 Text: Status: Complete Freq: Document 10/19/17 15:39 TONY (Rec: 10/19/17 15:58 TONY [email or web address]) Nutritional Asmnt/Malnutrition Patient General Information Nutritional Screening High Risk Consult Diagnosis sepsis, PNA Pertinent Medical Hx/Surgical Hx HTN, asthma/COPD, CVA/TIA, PUD /GERD Subjective Information Consult received for malnutrition and diet. Pt seen resting in bed, non-verbal, on non-rebreather noted. Pt has PEG noted. Spoke with RN, RN stated TF planned to start today. Current Diet Order/ Nutrition Support no diet order Pertinent Medications D5-0.9%NS, piperacillin Pertinent Labs 10/19 Na 135, K 4.5, Cl 104, BUN 69, Cr 2.0, Glucose 133, ca 8 .0 Nutritional Hx/Data Height 1.6 m Height (Calculated Centimeters) 160.0 Current Weight (lbs) 53.025 kg Weight (Calculated Kilograms) 53.0 Weight (Calculated Grams) 36942.9 [place] Body Weight 115 % [place] Body Weight 101 Body Mass Index (BMI) 20.7 Weight Status Approriate GI Symptoms GI Symptoms None Last BM none Difficult in: None Skin Integrity/Comment: pressure area reddned to right hip and left hip, decubitus ulceration to sacrococcyx skin intact, Zhang 10 Estimated Nutritional Goals BEE in Kcals: Using Current wt Calories/Kcals/Kg 25-30 Kcals Calculated 9296-6799 Protein: Using Current wt Protein g/k.2-1.4 Protein Calculated 64-74 Fluid: ml 1325-1590ml (1ml/kcal) Nutritional Problem 1. Problem Problem increased nutrition needs ( calorie and protein) Etiology increased metabolic demand and energy expenditure Signs/Symptoms: dx of PNA and sepsis and impaired skin integrity Malnutrition Alert Protein-Calorie Malnutrition N/A Is there a minimum of two criteria No selected? Query Text:Check all the applicable criteria. A minimum of two criteria are recommended for diagnosis of either severe or non-severe malnutrition. Intervention/Recommendation Comments 1. Recocommend to start TF Nutren Pulmonary at 20ml/hr for first 24 hours, increased to goal rate of 40ml/hr as tolerated. This will provide 1440kcal, 65g protein and 750ml free water, meeting 100% of nutritional needs. 2. Monitor TF rate, tolerance, wt daily, skin integrity and labs 3. F/U as high risk in 2-3 days, 10/21-10/22 Expected Outcomes/Goals Expected Outcomes/Goals 1. Pt to meet at least 75% of nutritional needs via nutrition support with tolerance 2. Wt stability, skin to remain intact, labs to approach WNL.
--- NOTE | 2017-10-22 22:36 | Progress Notes ---
DATE: 10/22/2017 PROBLEM LIST: 1. Persistent respiratory failure. 2. Infiltrate. 3. Significant altered state of mind. 4. Sepsis. SYMPTOMS: She is still on the BiPAP 65% of oxygen. Noncommunicative. Not too much movement today. HYSICAL EXAMINATION: VITAL SIGNS: The patient is afebrile, heart rate is in the 80s, respirations anywhere from 47-34, and saturation 96%, currently on 65% of oxygen BiPAP. NECK: Veins not visualized. CHEST: Shows diminished air entry with occasional secretory noise. HEART: Regular. ABDOMEN: Soft, nontender. LABORATORY DATA: White count is 19.3, hemoglobin 9.9 and the patient's pO2 is 64 and this was on early on the day on 45% of oxygen bleed. ASSESSMENT: The patient is clinically not much changed, continuity of respiratory failure, extensive infiltrate on the left side, maybe patchy on the right mid lung area to assessment. The patient is not significantly improved and continued to require high-flow O2 saturation. PLANS AND SUGGESTIONS: Continue current treatment. We will give a trial to see and give her a break with Venturi mask and if she can tolerate, then go from there and discuss with RT. JOB# [id number]
[2017-10-23] MEDS: Albuterol/Ipratropium Neb 3 ML AERS HHN SCH ×6 (02:05→23:33)
[2017-10-23 06:39] LABS: % BASOPHILS 0.1 % (0.0-2.0); % EOSINOPHILS 0.4 % (0.0-5.0); % MONOCYTES 6.5 % (2.0-10.0); EOSINOPHILE ABSOLUTE 0.1 Th/cmm (0.1-0.4); HEMATOCRIT 29.3 % (41.0-60); LYMPHOCYTE ABSOLUTE 1.2 Th/cmm (1.5-3.0); MEAN CELL VOLUME 87.8 fl (81-100); MEAN CORPUSCULAR HGB CONC 34.1 pg (28.0-36.0); MEAN PLATELET VOLUME 8.6 fl; MONOCYTE ABSOLUTE 1.3 Th/cmm (0.3-1.0); NEUTROPHILE ABSOLUTE 17.2 Th/cmm (1.8-8.0); PLATELET COUNT 297 Th/cmm (150-400); RED BLOOD COUNT 3.33 Mil/cmm (3.80-5.20); RED CELL DISTRIBUTION WIDTH 15.7 % (11.5-20.0)
[2017-10-23 07:02] LABS: WHITE BLOOD COUNT 19.8 Th/cmm (4.8-10.8)
[2017-10-23 07:06] LABS: ANION GAP 10.4 (7.0-16.0); BUN - UREA NITROGEN 26 mg/dL (7-25); CALCIUM SERUM 8.3 mg/dL (8.6-10.3); CARBON DIOXIDE 26.8 mEq/L (21.0-31.0); CHLORIDE 115 mEq/L (98-107); CREATININE - SERUM 0.4 mg/dL (0.6-1.2); GLUCOSE 148 mg/dL (70-105); SODIUM SERUM 150 mEq/L (136-145)
[2017-10-23 07:09] LABS: POTASSIUM SERUM 2.2 mEq/L (3.5-5.1)
[2017-10-23] MEDS: Budesonide 0.5 Mg/2 mL Ud HHN SCH ×2 (08:11→20:18)
--- NOTE | 2017-10-23 08:38 | Diagnostic Imaging Report ---
Portable chest x-ray HISTORY: Shortness of breath Compared to prior exam of October 21, 2017, persistent yet slightly decreased consolidation within the left lung. Slight decrease in infiltrate within the right lung. IMPRESSION: 1. Persistent yet slightly decreased bilateral infiltrates.
[2017-10-23] MEDS: carBAMazepine 200 mg/10 mL UDC GT SCH ×2 (08:59→16:23)
--- NOTE | 2017-10-23 11:42 | Internal Medicine Prog Note ---
Internal Medicine Subjective - Subjective Service Date: 10/23/17 Patient seen and examined:: with staff Patient is:: awake Per staff patient has:: tolerating meds Internal Medicine Objective - Results Result Diagrams: 10/23/17 05:50 10/23/17 05:50 Recent Labs: Laboratory Last Values WBC 19.8 Th/cmm (4.8-10.8) H 10/23/17 05:50 RBC 3.33 Mil/cmm (3.80-5.20) L 10/23/17 05:50 Hgb 10.0 gm/dL (12-16) L 10/23/17 05:50 Hct 29.3 % (41.0-60) L 10/23/17 05:50 MCV 87.8 fl (81-100) 10/23/17 05:50 MCH 30.0 pg (27.0-31.0) 10/23/17 05:50 MCHC Differential 34.1 pg (28.0-36.0) 10/23/17 05:50 RDW 15.7 % (11.5-20.0) 10/23/17 05:50 Plt Count 297 Th/cmm (150-400) 10/23/17 05:50 MPV 8.6 fl 10/23/17 05:50 Neutrophils % 87.0 % (40.0-80.0) H 10/23/17 05:50 Band Neutrophils % 36 % (0-10) H 10/20/17 04:10 Lymphocytes % 6.0 % (20.0-50.0) L 10/23/17 05:50 Monocytes % 6.5 % (2.0-10.0) 10/23/17 05:50 Eosinophils % 0.4 % (0.0-5.0) 10/23/17 05:50 Basophils % 0.1 % (0.0-2.0) 10/23/17 05:50 Neutrophils (Manual) 52 % (40-80) 10/20/17 04:10 Lymphocytes 7 % (20-50) L 10/20/17 04:10 Monocytes 4 % (2-10) 10/20/17 04:10 Eosinophils 1 % (0-5) 10/20/17 04:10 Hypochromia 1+ 10/20/17 04:10 Platelet Estimate ADEQUATE (NORMAL) 10/20/17 04:10 Eos Smear Source URINE 10/20/17 08:50 Eos Smear Total Cells FEW EOSINOPHILS SEEN (NONE SEEN) 10/20/17 08:50 PT 11.5 SECONDS (9.5-11.5) 10/18/17 22:00 INR 1.10 (0.5-1.4) 10/18/17 22:00 Specimen Source Arterial 10/21/17 08:30 Sample Site RB 10/21/17 08:30 pH 7.47 (7.35-7.45) H 10/21/17 08:30 pCO2 29.0 mmHg (35.0-45.0) L 10/21/17 08:30 pO2 64.0 mmHg (80.0-100.0) L 10/21/17 08:30 HCO3 23.6 mEq/L (20.0-26.0) 10/21/17 08:30 Base Excess -1.6 mEq/L (-3.0-3.0) 10/21/17 08:30 O2 Saturation 93.0 % (92.0-100.0) 10/21/17 08:30 Vasquez Test NA 10/21/17 08:30 Vent Rate 12 10/21/17 08:30 Inspired O2 45 10/21/17 08:30 Tidal Volume 350 10/21/17 08:30 PEEP 4 10/21/17 08:30 Pressure (ins/psv/peep) NA 10/21/17 08:30 Critical Value SH 10/21/17 08:30 Sodium 150 mEq/L (136-145) H 10/23/17 05:50 Potassium 2.2 mEq/L (3.5-5.1) L* 10/23/17 05:50 Chloride 115 mEq/L (98-107) H 10/23/17 05:50 Carbon Dioxide 26.8 mEq/L (21.0-31.0) 10/23/17 05:50 Anion Gap 10.4 (7.0-16.0) 10/23/17 05:50 BUN 26 mg/dL (7-25) H 10/23/17 05:50 Creatinine 0.4 mg/dL (0.6-1.2) L 10/23/17 05:50 Est GFR ( Amer) TNP 10/23/17 05:50 Est GFR (Non-Af Amer) TNP 10/23/17 05:50 BUN/Creatinine Ratio 65.0 10/23/17 05:50 Glucose 148 mg/dL (70-105) H 10/23/17 05:50 Whole Bld Lactic Acid 3.67 mmol/L (0.60-1.99) H* 10/19/17 07:30 Uric Acid 4.1 mg/dL (2.3-6.6) 10/20/17 04:10 Calcium 8.3 mg/dL (8.6-10.3) L 10/23/17 05:50 Magnesium 2.0 mg/dL (1.9-2.7) 10/22/17 05:21 Total Bilirubin 0.5 mg/dL (0.3-1.0) 10/20/17 04:10 AST 19 U/L (13-39) 10/20/17 04:10 ALT 13 U/L (7-52) 10/20/17 04:10 Alkaline Phosphatase 34 U/L (34-104) 10/20/17 04:10 Ammonia 33 umol/L (16-53) 10/20/17 04:10 Creatine Kinase 136 U/L (30-223) 10/18/17 22:00 Troponin I 0.07 ng/mL (0.01-0.05) H* 10/18/17 22:00 B-Natriuretic Peptide 275.0 pg/mL (5.0-100.0) H 10/18/17 22:00 Total Protein 5.4 gm/dL (6.0-8.3) L 10/20/17 04:10 Albumin 2.6 gm/dL (3.7-5.3) L 10/20/17 04:10 Globulin 2.8 gm/dL 10/20/17 04:10 Albumin/Globulin Ratio 0.9 (1.0-1.8) L 10/20/17 04:10 Triglycerides 130 mg/dL (<150) 10/18/17 22:00 Cholesterol 111 mg/dL (<200) 10/18/17 22:00 LDL Cholesterol Direct 54 mg/dL (75-193) L 10/18/17 22:00 HDL Cholesterol 37 mg/dL (23-92) 10/18/17 22:00 Amylase 36 U/L (29-103) 10/18/17 22:00 Lipase 6 U/L (11-82) L 10/18/17 22:00 TSH 4.53 uIU/ml (0.34-5.60) 10/19/17 04:40 Urine Source RANDOM 10/19/17 06:30 Urine Color YELLOW 10/19/17 06:30 Urine Clarity CLOUDY (CLEAR) H 10/19/17 06:30 Urine pH 8.5 (4.6 - 8.0) 10/19/17 06:30 Ur Specific [place] 1.015 (1.005-1.030) 10/19/17 06:30 Urine Protein >=300 mg/dL (NEGATIVE) 10/19/17 06:30 Urine Glucose (UA) NEGATIVE mg/dL (NEGATIVE) 10/19/17 06:30 Urine Ketones NEGATIVE mg/dL (NEGATIVE) 10/19/17 06:30 Urine Blood MODERATE (NEGATIVE) H 10/19/17 06:30 Urine Nitrate NEGATIVE (NEGATIVE) 10/19/17 06:30 Urine Bilirubin NEGATIVE (NEGATIVE) 10/19/17 06:30 Urine Urobilinogen 0.2 E.U./dL (0.2 - 1.0) 10/19/17 06:30 Ur Leukocyte Esterase LARGE (NEGATIVE) H 10/19/17 06:30 Urine RBC 10-25 /hpf (0-5) H 10/19/17 06:30 Urine WBC >100 /hpf (0-5) H 10/19/17 06:30 Ur Epithelial Cells OCCASIONAL /lpf (FEW) 10/19/17 06:30 Urine Bacteria MANY /hpf (NONE SEEN) H 10/19/17 06:30 Ur Random Sodium 35 mmol/L 10/20/17 07:07 Urine Creatinine 39.0 mg/dl (Not Estab.) 10/20/17 07:07 Urine Microalbumin 351.0 ug/mL (Not Estab.) 10/20/17 07:07 Microalb/Creat Ratio 9.0 10/20/17 07:07 Vancomycin Trough 9.0 ug/mL (10-20) L 10/22/17 10:50 Random Vancomycin 5.4 ug/mL (5.0-40.0) 10/20/17 04:10 Blood Type O POSITIVE 10/20/17 07:30 Antibody Screen NEGATIVE 10/20/17 07:30 Crossmatch See Detail 10/20/17 07:30 - Physical Exam Vitals and I&O: Vital Signs Temp 97.6 F 10/23/17 08:32 Pulse 85 10/23/17 09:00 Resp 20 10/23/17 08:32 BP 153/90 10/23/17 09:00 Pulse Ox 98 10/23/17 08:32 Intake & Output 10/22/17 10/23/17 10/23/17 18:59 06:59 18:59 Intake Total 300 300 480 Output Total 1250 Balance -950 300 480 Weight (lbs) 120 lb 120 lb Intake: Intake, IV Amount 100 300 Piperacillin Sodium/ 100 50 Tazobact 3.375 gm In Sodium Chloride 0.9% 50 ml @ 100 mls/hr IV Q8H [facility] Rx#:[id number] Vancomycin HCl 0.75 gm In 250 Sodium Chloride 0.9% 250 ml @ 165 mls/hr IV Q12H [facility] Rx#:[id number] Oral 0 Tube Feeding 200 480 Output: Urine 1250 Other: # Bowel Movements 1 Active Medications: Current Medications Acetaminophen (Tylenol 650mg/20.3ml Suspension) 500 mg GT Q4H PRN PRN Reason: Pain (Moderate) Stop: 12/18/17 21:04 Last Admin: 10/21/17 12:25 Dose: 500 mg Acetaminophen (Tylenol 650mg/20.3ml Suspension) 325 mg GT Q4H PRN PRN Reason: Pain or Fever >101 Stop: 12/18/17 21:05 Albuterol Sulfate (Albuterol 2.5mg/3ml Neb Ud) 2.5 mg HHN Q4H PRN PRN Reason: Wheezing Stop: 12/18/17 01:25 Last Admin: 10/19/17 18:52 Dose: 2.5 mg Albuterol/Ipratropium (Duoneb Neb) 3 ml HHN Q4HRT [facility] Stop: 12/19/17 02:59 Last Admin: 10/23/17 11:41 Dose: 3 ml Bisacodyl (Dulcolax 10 Mg Supp) 10 mg RC DAILY PRN PRN Reason: Constipation Stop: 12/18/17 20:52 Budesonide (Pulmicort) 0.5 mg HHN BIDRT [facility] Stop: 12/19/17 06:59 Last Admin: 10/23/17 08:11 Dose: 0.5 mg Carbamazepine (Tegretol) 200 mg GT BID EZEKIEL PRN Reason: Protocol Stop: 12/19/17 08:59 Last Admin: 10/23/17 08:59 Dose: 200 mg Hydralazine HCl (Apresoline 20 Mg/Ml) 10 mg IV Q6HR PRN PRN Reason: SBP >160 Stop: 12/20/17 10:38 Last Admin: 10/22/17 16:34 Dose: 10 mg Piperacillin Sod/Tazobactam (Sod 3.375 gm/ Sodium Chloride) 50 mls @ 100 mls/ hr IV Q8H [facility] Stop: 12/18/17 01:59 Last Admin: 10/23/17 11:17 Dose: 100 mls/hr Vancomycin HCl 0.75 gm/ Sodium (Chloride) 250 mls @ 165 mls/hr IV Q12H [facility] Stop: 12/21/17 20:59 Last Admin: 10/23/17 09:03 Dose: 165 mls/hr Potassium Chloride 30 meq/ (Dextrose) 1,015 mls @ 30 mls/hr IV .Q24H [facility] Stop: 12/21/17 13:30 Last Admin: 10/22/17 17:20 Dose: 30 mls/hr Miscellaneous (Vancomycin Iv Per Pharmacy) 1 ea PRN PRN PRN Reason: PROTOCOL Stop: 12/18/17 01:10 Miscellaneous (Clinical Monitoring) 1 ea PRN PRN PRN Reason: RENAL Stop: 12/18/17 12:33 Miscellaneous (Probiotic Screen) 1 [facility] PRN PRN PRN Reason: PROTOCOL Stop: 12/18/17 16:25 Potassium Chloride (Potassium Chloride Elixir) 40 meq GT X1 ONE Stop: 10/23/17 11:46 Spironolactone (Aldactone) 25 mg PO BID [facility] Stop: 12/21/17 16:59 Last Admin: 10/23/17 09:00 Dose: 25 mg General: weak HEENT: NC/AT, PERRLA Neck: Supple Lungs: ronchi Cardiovascular: without murmur Abdomen: soft, non-tender, non-distended, positive bowel sound Neurological: unable to follow command - Procedures Procedures: Procedures Procedure Code Date ASSISTANCE WITH RESPIRATORY VENTILATION, 24-96 HRS, CPAP 6K05011 10/18/[address] GASTROSTOMY TUBE 64183 08/28/17 INSERTION OF FEEDING DEVICE INTO STOMACH, ENDO [id number] 08/28/17 POS AIRWAY PRESSURE CPAP 60567 10/18/17 Internal Medicine Assmt/Plan - Assessment Assessment: Sepsis with septic shock hypotension acute uti pneumonia altered mental status Acute respiratory failure dementia Protein calorie malnutrition DNR STATUS - Plan Plan: comfort measures follow up labs in am continue current orders Nutritional Asmnt/Malnutr-PDOC - Dietary Evaluation Malnutrition Findings (Please click <Entered> for more info): Nutritional Asmnt/Malnutrition Start: 10/19/17 15: 37 Text: Status: Complete Freq: Document 10/19/17 15:39 JOELG (Rec: 10/19/17 15:58 LCHENG [email or web address]) Nutritional Asmnt/Malnutrition Patient General Information Nutritional Screening High Risk Consult Diagnosis sepsis, PNA Pertinent Medical Hx/Surgical Hx HTN, asthma/COPD, CVA/TIA, PUD /GERD Subjective Information Consult received for malnutrition and diet. Pt seen resting in bed, non-verbal, on non-rebreather noted. Pt has PEG noted. Spoke with RN, RN stated TF planned to start today. Current Diet Order/ Nutrition Support no diet order Pertinent Medications D5-0.9%NS, piperacillin Pertinent Labs 10/19 Na 135, K 4.5, Cl 104, BUN 69, Cr 2.0, Glucose 133, ca 8 .0 Nutritional Hx/Data Height 5 ft 3 in Height (Calculated Centimeters) 160.0 Current Weight (lbs) 116 lb 14.4 oz Weight (Calculated Kilograms) 53.0 Weight (Calculated Grams) 48062.9 [place] Body Weight 115 % [place] Body Weight 101 Body Mass Index (BMI) 20.7 Weight Status Approriate GI Symptoms GI Symptoms None Last BM none Difficult in: None Skin Integrity/Comment: pressure area reddned to right hip and left hip, decubitus ulceration to sacrococcyx skin intact, Zhang 10 Estimated Nutritional Goals BEE in Kcals: Using Current wt Calories/Kcals/Kg 25-30 Kcals Calculated 3229-9512 Protein: Using Current wt Protein g/k.2-1.4 Protein Calculated 64-74 Fluid: ml 1325-1590ml (1ml/kcal) Nutritional Problem 1. Problem Problem increased nutrition needs ( calorie and protein) Etiology increased metabolic demand and energy expenditure Signs/Symptoms: dx of PNA and sepsis and impaired skin integrity Malnutrition Alert Protein-Calorie Malnutrition N/A Is there a minimum of two criteria No selected? Query Text:Check all the applicable criteria. A minimum of two criteria are recommended for diagnosis of either severe or non-severe malnutrition. Intervention/Recommendation Comments 1. Recocommend to start TF Nutren Pulmonary at 20ml/hr for first 24 hours, increased to goal rate of 40ml/hr as tolerated. This will provide 1440kcal, 65g protein and 750ml free water, meeting 100% of nutritional needs. 2. Monitor TF rate, tolerance, wt daily, skin integrity and labs 3. F/U as high risk in 2-3 days, 10/21-10/22 Expected Outcomes/Goals Expected Outcomes/Goals 1. Pt to meet at least 75% of nutritional needs via nutrition support with tolerance 2. Wt stability, skin to remain intact, labs to approach WNL.
[2017-10-23] MEDS ORDERED: Potassium Chloride Elixir 20 mEq /15 mL UDC GT ONE (11:45)
--- NOTE | 2017-10-23 12:23 | Infectious Disease Prog Note ---
Infectious Disease Subjective - Review of Systems Service Date: 10/23/17 Subjective: no change, no fever. Infectious Disease Objective - Results Result Diagrams: 10/23/17 05:50 10/23/17 05:50 Recent Labs: Laboratory Last Values WBC 19.8 Th/cmm (4.8-10.8) H 10/23/17 05:50 RBC 3.33 Mil/cmm (3.80-5.20) L 10/23/17 05:50 Hgb 10.0 gm/dL (12-16) L 10/23/17 05:50 Hct 29.3 % (41.0-60) L 10/23/17 05:50 MCV 87.8 fl (81-100) 10/23/17 05:50 MCH 30.0 pg (27.0-31.0) 10/23/17 05:50 MCHC Differential 34.1 pg (28.0-36.0) 10/23/17 05:50 RDW 15.7 % (11.5-20.0) 10/23/17 05:50 Plt Count 297 Th/cmm (150-400) 10/23/17 05:50 MPV 8.6 fl 10/23/17 05:50 Neutrophils % 87.0 % (40.0-80.0) H 10/23/17 05:50 Band Neutrophils % 36 % (0-10) H 10/20/17 04:10 Lymphocytes % 6.0 % (20.0-50.0) L 10/23/17 05:50 Monocytes % 6.5 % (2.0-10.0) 10/23/17 05:50 Eosinophils % 0.4 % (0.0-5.0) 10/23/17 05:50 Basophils % 0.1 % (0.0-2.0) 10/23/17 05:50 Neutrophils (Manual) 52 % (40-80) 10/20/17 04:10 Lymphocytes 7 % (20-50) L 10/20/17 04:10 Monocytes 4 % (2-10) 10/20/17 04:10 Eosinophils 1 % (0-5) 10/20/17 04:10 Hypochromia 1+ 10/20/17 04:10 Platelet Estimate ADEQUATE (NORMAL) 10/20/17 04:10 Eos Smear Source URINE 10/20/17 08:50 Eos Smear Total Cells FEW EOSINOPHILS SEEN (NONE SEEN) 10/20/17 08:50 PT 11.5 SECONDS (9.5-11.5) 10/18/17 22:00 INR 1.10 (0.5-1.4) 10/18/17 22:00 Specimen Source Arterial 10/21/17 08:30 Sample Site RB 10/21/17 08:30 pH 7.47 (7.35-7.45) H 10/21/17 08:30 pCO2 29.0 mmHg (35.0-45.0) L 10/21/17 08:30 pO2 64.0 mmHg (80.0-100.0) L 10/21/17 08:30 HCO3 23.6 mEq/L (20.0-26.0) 10/21/17 08:30 Base Excess -1.6 mEq/L (-3.0-3.0) 10/21/17 08:30 O2 Saturation 93.0 % (92.0-100.0) 10/21/17 08:30 Vasquez Test NA 10/21/17 08:30 Vent Rate 12 10/21/17 08:30 Inspired O2 45 10/21/17 08:30 Tidal Volume 350 10/21/17 08:30 PEEP 4 10/21/17 08:30 Pressure (ins/psv/peep) NA 10/21/17 08:30 Critical Value SH 10/21/17 08:30 Sodium 150 mEq/L (136-145) H 10/23/17 05:50 Potassium 2.2 mEq/L (3.5-5.1) L* 10/23/17 05:50 Chloride 115 mEq/L (98-107) H 10/23/17 05:50 Carbon Dioxide 26.8 mEq/L (21.0-31.0) 10/23/17 05:50 Anion Gap 10.4 (7.0-16.0) 10/23/17 05:50 BUN 26 mg/dL (7-25) H 10/23/17 05:50 Creatinine 0.4 mg/dL (0.6-1.2) L 10/23/17 05:50 Est GFR ( Amer) TNP 10/23/17 05:50 Est GFR (Non-Af Amer) TNP 10/23/17 05:50 BUN/Creatinine Ratio 65.0 10/23/17 05:50 Glucose 148 mg/dL (70-105) H 10/23/17 05:50 Whole Bld Lactic Acid 3.67 mmol/L (0.60-1.99) H* 10/19/17 07:30 Uric Acid 4.1 mg/dL (2.3-6.6) 10/20/17 04:10 Calcium 8.3 mg/dL (8.6-10.3) L 10/23/17 05:50 Magnesium 2.0 mg/dL (1.9-2.7) 10/22/17 05:21 Total Bilirubin 0.5 mg/dL (0.3-1.0) 10/20/17 04:10 AST 19 U/L (13-39) 10/20/17 04:10 ALT 13 U/L (7-52) 10/20/17 04:10 Alkaline Phosphatase 34 U/L (34-104) 10/20/17 04:10 Ammonia 33 umol/L (16-53) 10/20/17 04:10 Creatine Kinase 136 U/L (30-223) 10/18/17 22:00 Troponin I 0.07 ng/mL (0.01-0.05) H* 10/18/17 22:00 B-Natriuretic Peptide 275.0 pg/mL (5.0-100.0) H 10/18/17 22:00 Total Protein 5.4 gm/dL (6.0-8.3) L 10/20/17 04:10 Albumin 2.6 gm/dL (3.7-5.3) L 10/20/17 04:10 Globulin 2.8 gm/dL 10/20/17 04:10 Albumin/Globulin Ratio 0.9 (1.0-1.8) L 10/20/17 04:10 Triglycerides 130 mg/dL (<150) 10/18/17 22:00 Cholesterol 111 mg/dL (<200) 10/18/17 22:00 LDL Cholesterol Direct 54 mg/dL (75-193) L 10/18/17 22:00 HDL Cholesterol 37 mg/dL (23-92) 10/18/17 22:00 Amylase 36 U/L (29-103) 10/18/17 22:00 Lipase 6 U/L (11-82) L 10/18/17 22:00 TSH 4.53 uIU/ml (0.34-5.60) 10/19/17 04:40 Urine Source RANDOM 10/19/17 06:30 Urine Color YELLOW 10/19/17 06:30 Urine Clarity CLOUDY (CLEAR) H 10/19/17 06:30 Urine pH 8.5 (4.6 - 8.0) 10/19/17 06:30 Ur Specific [place] 1.015 (1.005-1.030) 10/19/17 06:30 Urine Protein >=300 mg/dL (NEGATIVE) 10/19/17 06:30 Urine Glucose (UA) NEGATIVE mg/dL (NEGATIVE) 10/19/17 06:30 Urine Ketones NEGATIVE mg/dL (NEGATIVE) 10/19/17 06:30 Urine Blood MODERATE (NEGATIVE) H 10/19/17 06:30 Urine Nitrate NEGATIVE (NEGATIVE) 10/19/17 06:30 Urine Bilirubin NEGATIVE (NEGATIVE) 10/19/17 06:30 Urine Urobilinogen 0.2 E.U./dL (0.2 - 1.0) 10/19/17 06:30 Ur Leukocyte Esterase LARGE (NEGATIVE) H 10/19/17 06:30 Urine RBC 10-25 /hpf (0-5) H 10/19/17 06:30 Urine WBC >100 /hpf (0-5) H 10/19/17 06:30 Ur Epithelial Cells OCCASIONAL /lpf (FEW) 10/19/17 06:30 Urine Bacteria MANY /hpf (NONE SEEN) H 10/19/17 06:30 Ur Random Sodium 35 mmol/L 10/20/17 07:07 Urine Creatinine 39.0 mg/dl (Not Estab.) 10/20/17 07:07 Urine Microalbumin 351.0 ug/mL (Not Estab.) 10/20/17 07:07 Microalb/Creat Ratio 9.0 10/20/17 07:07 Vancomycin Trough 9.0 ug/mL (10-20) L 10/22/17 10:50 Random Vancomycin 5.4 ug/mL (5.0-40.0) 10/20/17 04:10 Blood Type O POSITIVE 10/20/17 07:30 Antibody Screen NEGATIVE 02/10/18 07:30 Crossmatch See Detail 10/20/17 07:30 - Physical Exam Vitals and I&O: Vital Signs Temp 97.6 F 10/23/17 08:32 Pulse 102 10/23/17 11:41 Resp 22 10/23/17 11:41 BP 153/90 10/23/17 09:00 Pulse Ox 98 10/23/17 11:41 Intake & Output 10/22/17 10/23/17 10/23/17 18:59 06:59 18:59 Intake Total 300 300 780 Output Total 1250 Balance -950 300 780 Weight (lbs) 54.431 kg 54.431 kg Intake: Intake, IV Amount 100 300 300 Piperacillin Sodium/ 100 50 50 Tazobact 3.375 gm In Sodium Chloride 0.9% 50 ml @ 100 mls/hr IV Q8H [facility] Rx#:[id number] Vancomycin HCl 0.75 gm In 250 250 Sodium Chloride 0.9% 250 ml @ 165 mls/hr IV Q12H [facility] Rx#:[id number] Oral 0 Tube Feeding 200 480 Output: Urine 1250 Other: # Bowel Movements 1 Active Medications: Current Medications Acetaminophen (Tylenol 650mg/20.3ml Suspension) 500 mg GT Q4H PRN PRN Reason: Pain (Moderate) Stop: 12/18/17 21:04 Last Admin: 10/21/17 12:25 Dose: 500 mg Acetaminophen (Tylenol 650mg/20.3ml Suspension) 325 mg GT Q4H PRN PRN Reason: Pain or Fever >101 Stop: 12/18/17 21:05 Albuterol Sulfate (Albuterol 2.5mg/3ml Neb Ud) 2.5 mg HHN Q4H PRN PRN Reason: Wheezing Stop: 12/18/17 01:25 Last Admin: 10/19/17 18:52 Dose: 2.5 mg Albuterol/Ipratropium (Duoneb Neb) 3 ml HHN Q4HRT [facility] Stop: 12/19/17 02:59 Last Admin: 10/23/17 11:41 Dose: 3 ml Bisacodyl (Dulcolax 10 Mg Supp) 10 mg RC DAILY PRN PRN Reason: Constipation Stop: 12/18/17 20:52 Budesonide (Pulmicort) 0.5 mg HHN BIDRT [facility] Stop: 12/19/17 06:59 Last Admin: 10/23/17 08:11 Dose: 0.5 mg Carbamazepine (Tegretol) 200 mg GT BID EZEKIEL PRN Reason: Protocol Stop: 12/19/17 08:59 Last Admin: 10/23/17 08:59 Dose: 200 mg Hydralazine HCl (Apresoline 20 Mg/Ml) 10 mg IV Q6HR PRN PRN Reason: SBP >160 Stop: 12/20/17 10:38 Last Admin: 10/22/17 16:34 Dose: 10 mg Piperacillin Sod/Tazobactam (Sod 3.375 gm/ Sodium Chloride) 50 mls @ 100 mls/ hr IV Q8H EZEIKEL Stop: 12/18/17 01:59 Last Infusion: 10/23/17 12:00 Dose: Infused Vancomycin HCl 0.75 gm/ Sodium (Chloride) 250 mls @ 165 mls/hr IV Q12H EZEKIEL Stop: 12/21/17 20:59 Last Infusion: 10/23/17 10:40 Dose: Infused Potassium Chloride 30 meq/ (Dextrose) 1,015 mls @ 30 mls/hr IV .Q24H EZEKIEL Stop: 12/21/17 13:30 Last Admin: 10/22/17 17:20 Dose: 30 mls/hr Miscellaneous (Clinical Monitoring) 1 [facility] PRN PRN PRN Reason: RENAL Stop: 12/18/17 12:33 Miscellaneous (Probiotic Screen) 1 [facility] PRN PRN PRN Reason: PROTOCOL Stop: 12/18/17 16:25 Spironolactone (Aldactone) 25 mg PO BID [facility] Stop: 12/21/17 16:59 Last Admin: 10/23/17 09:00 Dose: 25 mg General: no acute distress, well developed, well nourished HEENT: atraumatic, normocephalic, PERRLA Neck: supple, no thyromegaly Cardiovascular: S1S2, regular Lungs: clear to auscultation bilaterally, clear to percussion Abdomen: soft, no tender, no distended Extremities: no cyanosis, no clubbing Neurological: awake, alert - Procedures Procedures: Procedures Procedure Code Date ASSISTANCE WITH RESPIRATORY VENTILATION, 24-96 HRS, CPAP [id number] 10/18/[address] GASTROSTOMY TUBE 39381 08/28/17 INSERTION OF FEEDING DEVICE INTO STOMACH, ENDO [id number] 08/28/17 POS AIRWAY PRESSURE CPAP 66990 10/18/17 Infectious Disease Assmt/Plan - Assessment Assessment: 1. Sepsis. Septic shock. Severe sepsis. Lactic acidemia. Improved. 2. Hypotension, multifactorial including sepsis and cardiogenic. Improved. 3. UTI, complicated. Proteus. 4. Pneumonia. ESBL E coli 5. Altered mental status. Multifactorial. 6. Respiratory failure. On BiPAP. 7. Dementia. 8. Protein calorie malnutrition. 9. Acute failure. - Plan Plan: TARA Herzog, Change zosyn to meopenem. Nutritional Asmnt/Malnutr-PDOC - Dietary Evaluation Malnutrition Findings (Please click <Entered> for more info): Nutritional Asmnt/Malnutrition Start: 10/19/17 15: 37 Text: Status: Complete Freq: Document 10/19/17 15:39 LCHENG (Rec: 10/19/17 15:58 LCHENG [email or web address]) Nutritional Asmnt/Malnutrition Patient General Information Nutritional Screening High Risk Consult Diagnosis sepsis, PNA Pertinent Medical Hx/Surgical Hx HTN, asthma/COPD, CVA/TIA, PUD /GERD Subjective Information Consult received for malnutrition and diet. Pt seen resting in bed, non-verbal, on non-rebreather noted. Pt has PEG noted. Spoke with RN, RN stated TF planned to start today. Current Diet Order/ Nutrition Support no diet order Pertinent Medications D5-0.9%NS, piperacillin Pertinent Labs 10/19 Na 135, K 4.5, Cl 104, BUN 69, Cr 2.0, Glucose 133, ca 8 .0 Nutritional Hx/Data Height 1.6 m Height (Calculated Centimeters) 160.0 Current Weight (lbs) 53.025 kg Weight (Calculated Kilograms) 53.0 Weight (Calculated Grams) 15295.9 [place] Body Weight 115 % [place] Body Weight 101 Body Mass Index (BMI) 20.7 Weight Status Approriate GI Symptoms GI Symptoms None Last BM none Difficult in: None Skin Integrity/Comment: pressure area reddned to right hip and left hip, decubitus ulceration to sacrococcyx skin intact, Zhang 10 Estimated Nutritional Goals BEE in Kcals: Using Current wt Calories/Kcals/Kg 25-30 Kcals Calculated 2300-3074 Protein: Using Current wt Protein g/k.2-1.4 Protein Calculated 64-74 Fluid: ml 1325-1590ml (1ml/kcal) Nutritional Problem 1. Problem Problem increased nutrition needs ( calorie and protein) Etiology increased metabolic demand and energy expenditure Signs/Symptoms: dx of PNA and sepsis and impaired skin integrity Malnutrition Alert Protein-Calorie Malnutrition N/A Is there a minimum of two criteria No selected? Query Text:Check all the applicable criteria. A minimum of two criteria are recommended for diagnosis of either severe or non-severe malnutrition. Intervention/Recommendation Comments 1. Recocommend to start TF Nutren Pulmonary at 20ml/hr for first 24 hours, increased to goal rate of 40ml/hr as tolerated. This will provide 1440kcal, 65g protein and 750ml free water, meeting 100% of nutritional needs. 2. Monitor TF rate, tolerance, wt daily, skin integrity and labs 3. F/U as high risk in 2-3 days, 10/21-10/22 Expected Outcomes/Goals Expected Outcomes/Goals 1. Pt to meet at least 75% of nutritional needs via nutrition support with tolerance 2. Wt stability, skin to remain intact, labs to approach WNL.
[2017-10-23] MEDS: Meropenem 500 MG in Sodium Chloride 0.9% 100 ML IV SCH ×2 (13:51→21:53)
--- NOTE | 2017-10-23 14:54 | General Progress Note ---
Subjective - Review of Systems Service Date: 10/23/17 Subjective: stuporous, on VM Objective - Results Result Diagrams: 10/23/17 05:50 10/23/17 05:50 Recent Labs: Laboratory Last Values WBC 19.8 Th/cmm (4.8-10.8) H 10/23/17 05:50 RBC 3.33 Mil/cmm (3.80-5.20) L 10/23/17 05:50 Hgb 10.0 gm/dL (12-16) L 10/23/17 05:50 Hct 29.3 % (41.0-60) L 10/23/17 05:50 MCV 87.8 fl (81-100) 10/23/17 05:50 MCH 30.0 pg (27.0-31.0) 10/23/17 05:50 MCHC Differential 34.1 pg (28.0-36.0) 10/23/17 05:50 RDW 15.7 % (11.5-20.0) 10/23/17 05:50 Plt Count 297 Th/cmm (150-400) 10/23/17 05:50 MPV 8.6 fl 10/23/17 05:50 Neutrophils % 87.0 % (40.0-80.0) H 10/23/17 05:50 Band Neutrophils % 36 % (0-10) H 10/20/17 04:10 Lymphocytes % 6.0 % (20.0-50.0) L 10/23/17 05:50 Monocytes % 6.5 % (2.0-10.0) 10/23/17 05:50 Eosinophils % 0.4 % (0.0-5.0) 10/23/17 05:50 Basophils % 0.1 % (0.0-2.0) 10/23/17 05:50 Neutrophils (Manual) 52 % (40-80) 10/20/17 04:10 Lymphocytes 7 % (20-50) L 10/20/17 04:10 Monocytes 4 % (2-10) 10/20/17 04:10 Eosinophils 1 % (0-5) 10/20/17 04:10 Hypochromia 1+ 10/20/17 04:10 Platelet Estimate ADEQUATE (NORMAL) 10/20/17 04:10 Eos Smear Source URINE 10/20/17 08:50 Eos Smear Total Cells FEW EOSINOPHILS SEEN (NONE SEEN) 10/20/17 08:50 PT 11.5 SECONDS (9.5-11.5) 10/18/17 22:00 INR 1.10 (0.5-1.4) 10/18/17 22:00 Specimen Source Arterial 10/21/17 08:30 Sample Site RB 10/21/17 08:30 pH 7.47 (7.35-7.45) H 10/21/17 08:30 pCO2 29.0 mmHg (35.0-45.0) L 10/21/17 08:30 pO2 64.0 mmHg (80.0-100.0) L 10/21/17 08:30 HCO3 23.6 mEq/L (20.0-26.0) 10/21/17 08:30 Base Excess -1.6 mEq/L (-3.0-3.0) 10/21/17 08:30 O2 Saturation 93.0 % (92.0-100.0) 10/21/17 08:30 Vasquez Test NA 10/21/17 08:30 Vent Rate 12 10/21/17 08:30 Inspired O2 45 10/21/17 08:30 Tidal Volume 350 10/21/17 08:30 PEEP 4 10/21/17 08:30 Pressure (ins/psv/peep) NA 10/21/17 08:30 Critical Value SH 10/21/17 08:30 Sodium 150 mEq/L (136-145) H 10/23/17 05:50 Potassium 2.2 mEq/L (3.5-5.1) L* 10/23/17 05:50 Chloride 115 mEq/L (98-107) H 10/23/17 05:50 Carbon Dioxide 26.8 mEq/L (21.0-31.0) 10/23/17 05:50 Anion Gap 10.4 (7.0-16.0) 10/23/17 05:50 BUN 26 mg/dL (7-25) H 10/23/17 05:50 Creatinine 0.4 mg/dL (0.6-1.2) L 10/23/17 05:50 Est GFR ( Amer) TNP 10/23/17 05:50 Est GFR (Non-Af Amer) TNP 10/23/17 05:50 BUN/Creatinine Ratio 65.0 10/23/17 05:50 Glucose 148 mg/dL (70-105) H 10/23/17 05:50 Whole Bld Lactic Acid 3.67 mmol/L (0.60-1.99) H* 10/19/17 07:30 Uric Acid 4.1 mg/dL (2.3-6.6) 10/20/17 04:10 Calcium 8.3 mg/dL (8.6-10.3) L 10/23/17 05:50 Magnesium 2.0 mg/dL (1.9-2.7) 10/22/17 05:21 Total Bilirubin 0.5 mg/dL (0.3-1.0) 10/20/17 04:10 AST 19 U/L (13-39) 10/20/17 04:10 ALT 13 U/L (7-52) 10/20/17 04:10 Alkaline Phosphatase 34 U/L (34-104) 10/20/17 04:10 Ammonia 33 umol/L (16-53) 10/20/17 04:10 Creatine Kinase 136 U/L (30-223) 10/18/17 22:00 Troponin I 0.07 ng/mL (0.01-0.05) H* 10/18/17 22:00 B-Natriuretic Peptide 275.0 pg/mL (5.0-100.0) H 10/18/17 22:00 Total Protein 5.4 gm/dL (6.0-8.3) L 10/20/17 04:10 Albumin 2.6 gm/dL (3.7-5.3) L 10/20/17 04:10 Globulin 2.8 gm/dL 10/20/17 04:10 Albumin/Globulin Ratio 0.9 (1.0-1.8) L 10/20/17 04:10 Triglycerides 130 mg/dL (<150) 10/18/17 22:00 Cholesterol 111 mg/dL (<200) 10/18/17 22:00 LDL Cholesterol Direct 54 mg/dL (75-193) L 10/18/17 22:00 HDL Cholesterol 37 mg/dL (23-92) 10/18/17 22:00 Amylase 36 U/L (29-103) 10/18/17 22:00 Lipase 6 U/L (11-82) L 10/18/17 22:00 TSH 4.53 uIU/ml (0.34-5.60) 10/19/17 04:40 Urine Source RANDOM 10/19/17 06:30 Urine Color YELLOW 10/19/17 06:30 Urine Clarity CLOUDY (CLEAR) H 10/19/17 06:30 Urine pH 8.5 (4.6 - 8.0) 10/19/17 06:30 Ur Specific [place] 1.015 (1.005-1.030) 10/19/17 06:30 Urine Protein >=300 mg/dL (NEGATIVE) 10/19/17 06:30 Urine Glucose (UA) NEGATIVE mg/dL (NEGATIVE) 10/19/17 06:30 Urine Ketones NEGATIVE mg/dL (NEGATIVE) 10/19/17 06:30 Urine Blood MODERATE (NEGATIVE) H 10/19/17 06:30 Urine Nitrate NEGATIVE (NEGATIVE) 10/19/17 06:30 Urine Bilirubin NEGATIVE (NEGATIVE) 10/19/17 06:30 Urine Urobilinogen 0.2 E.U./dL (0.2 - 1.0) 10/19/17 06:30 Ur Leukocyte Esterase LARGE (NEGATIVE) H 10/19/17 06:30 Urine RBC 10-25 /hpf (0-5) H 10/19/17 06:30 Urine WBC >100 /hpf (0-5) H 10/19/17 06:30 Ur Epithelial Cells OCCASIONAL /lpf (FEW) 10/19/17 06:30 Urine Bacteria MANY /hpf (NONE SEEN) H 10/19/17 06:30 Ur Random Sodium 35 mmol/L 10/20/17 07:07 Urine Creatinine 39.0 mg/dl (Not Estab.) 10/20/17 07:07 Urine Microalbumin 351.0 ug/mL (Not Estab.) 10/20/17 07:07 Microalb/Creat Ratio 9.0 10/20/17 07:07 Vancomycin Trough 9.0 ug/mL (10-20) L 10/22/17 10:50 Random Vancomycin 5.4 ug/mL (5.0-40.0) 10/20/17 04:10 Blood Type O POSITIVE 10/20/17 07:30 Antibody Screen NEGATIVE 10/20/17 07:30 Crossmatch See Detail 10/20/17 07:30 - Physical Exam Vitals and I&O: Vital Signs Temp 98 F 10/23/17 12:00 Pulse 90 10/23/17 12:00 Resp 18 10/23/17 12:00 BP 151/88 10/23/17 12:00 Pulse Ox 99 10/23/17 12:00 Intake & Output 10/22/17 10/23/17 10/23/17 18:59 06:59 18:59 Intake Total 877 278 6572 Output Total 1250 Balance -073 259 3713 Weight (lbs) 54.431 kg 54.431 kg Intake: Intake, IV Amount 100 300 916 Piperacillin Sodium/ 100 50 50 Tazobact 3.375 gm In Sodium Chloride 0.9% 50 ml @ 100 mls/hr IV Q8H [facility] Rx#:[id number] Potassium Chloride 30 meq 616 In Dextrose 5% 1,000 ml @ 30 mls/hr IV .Q24H [facility] Rx#:[id number] Vancomycin HCl 0.75 gm In 250 250 Sodium Chloride 0.9% 250 ml @ 165 mls/hr IV Q12H [facility] Rx#:[id number] Oral 0 Tube Feeding 200 480 Output: Urine 1250 Other: # Bowel Movements 1 Stool Characteristics Soft Active Medications: Current Medications Acetaminophen (Tylenol 650mg/20.3ml Suspension) 500 mg GT Q4H PRN PRN Reason: Pain (Moderate) Stop: 12/18/17 21:04 Last Admin: 10/21/17 12:25 Dose: 500 mg Acetaminophen (Tylenol 650mg/20.3ml Suspension) 325 mg GT Q4H PRN PRN Reason: Pain or Fever >101 Stop: 12/18/17 21:05 Albuterol Sulfate (Albuterol 2.5mg/3ml Neb Ud) 2.5 mg HHN Q4H PRN PRN Reason: Wheezing Stop: 12/18/17 01:25 Last Admin: 10/19/17 18:52 Dose: 2.5 mg Albuterol/Ipratropium (Duoneb Neb) 3 ml HHN Q4HRT [facility] Stop: 12/19/17 02:59 Last Admin: 10/23/17 11:41 Dose: 3 ml Bisacodyl (Dulcolax 10 Mg Supp) 10 mg RC DAILY PRN PRN Reason: Constipation Stop: 12/18/17 20:52 Budesonide (Pulmicort) 0.5 mg HHN BIDRT [facility] Stop: 12/19/17 06:59 Last Admin: 10/23/17 08:11 Dose: 0.5 mg Carbamazepine (Tegretol) 200 mg GT BID EZEKIEL PRN Reason: Protocol Stop: 12/19/17 08:59 Last Admin: 10/23/17 08:59 Dose: 200 mg Hydralazine HCl (Apresoline 20 Mg/Ml) 10 mg IV Q6HR PRN PRN Reason: SBP >160 Stop: 12/20/17 10:38 Last Admin: 10/22/17 16:34 Dose: 10 mg Potassium Chloride 30 meq/ (Dextrose) 1,015 mls @ 30 mls/hr IV .Q24H [facility] Stop: 12/21/17 13:30 Last Admin: 10/23/17 13:52 Dose: 30 mls/hr Meropenem 500 mg/ Sodium (Chloride) 100 mls @ 100 mls/hr IV Q8H [facility] Stop: 12/22/17 12:59 Last Admin: 10/23/17 13:51 Dose: 100 mls/hr Miscellaneous (Clinical Monitoring) 1 ea MC PRN PRN PRN Reason: RENAL Stop: 12/18/17 12:33 Miscellaneous (Probiotic Screen) 1 ea PRN PRN PRN Reason: PROTOCOL Stop: 12/18/17 16:25 Potassium Chloride (Potassium Chloride Elixir) 30 meq GT DAILY E[facility]KIEL Stop: 12/23/17 08:59 Spironolactone (Aldactone) 25 mg PO BID E[facility]KIEL Stop: 12/21/17 16:59 Last Admin: 10/23/17 09:00 Dose: 25 mg General: Mild distress HEENT: Atraumatic, Mucous membr. moist/pink Neck: Supple, +2 carotid pulse wo bruit Cardiovascular: Regular rate, Normal S1, Normal S2 Lungs: Other (harsh rhonhci) Abdomen: Bowel sounds, Soft Extremities: no Edema Neurological: Sensation intact Skin: no Rash Psych/Mental Status: Mood NL - Procedures Procedures: Procedures Procedure Code Date ASSISTANCE WITH RESPIRATORY VENTILATION, 24-96 HRS, CPAP [id number] 10/18/[address] GASTROSTOMY TUBE 09086 08/28/17 INSERTION OF FEEDING DEVICE INTO STOMACH, ENDO [id number] 08/28/17 POS AIRWAY PRESSURE CPAP 19950 10/18/17 Assessment/Plan - Assessment Assessment: FLORIDALMA Shock Septic Sepsis 2/2 HAP, Cx UTI ARF on BIPAP Lactic acidosis Severe Malnutrition Hypokalemia Anemia acute on CD decomp CHF - Plan Plan: Lab - Result Diagrams 10/20/17 04:10 10/20/17 04:10 Current Medications Acetaminophen (Tylenol 650mg/20.3ml Suspension) 500 mg GT Q4H PRN PRN Reason: Pain (Moderate) Stop: 12/18/17 21:04 Last Admin: 10/20/17 08:58 Dose: 500 mg Acetaminophen (Tylenol 650mg/20.3ml Suspension) 325 mg GT Q4H PRN PRN Reason: Pain or Fever >101 Stop: 12/18/17 21:05 Albuterol Sulfate (Albuterol 2.5mg/3ml Neb Ud) 2.5 mg HHN Q4H PRN PRN Reason: Wheezing Stop: 12/18/17 01:25 Last Admin: 10/19/17 18:52 Dose: 2.5 mg Albuterol/Ipratropium (Duoneb Neb) 3 ml HHN Q4HRT [facility] Stop: 12/19/17 02:59 Last Admin: 10/20/17 11:12 Dose: 3 ml Bisacodyl (Dulcolax 10 Mg Supp) 10 mg RC DAILY PRN PRN Reason: Constipation Stop: 12/18/17 20:52 Budesonide (Pulmicort) 0.5 mg HHN BIDRT [facility] Stop: 12/19/17 06:59 Last Admin: 10/20/17 06:49 Dose: 0.5 mg Carbamazepine (Tegretol) 200 mg GT BID EZEKIEL PRN Reason: Protocol Stop: 12/19/17 08:59 Last Admin: 10/20/17 08:59 Dose: 200 mg Piperacillin Sod/Tazobactam (Sod 3.375 gm/ Sodium Chloride) 50 mls @ 100 mls/ hr IV Q8H [facility] Stop: 12/18/17 01:59 Last Infusion: 10/20/17 13:00 Dose: Infused Norepinephrine Bitartrate 4 mg (/ Dextrose) 254 mls @ 30.48 mls/hr IV TITR PRN ; Protocol; 8 MCG/MIN PRN Reason: BP MAINTENANCE (PER PROTOCOL) Stop: 12/18/17 12:11 Last Titration: 10/20/17 08:36 Dose: Infused Dextrose/Sodium Chloride (D5-0.9%Ns) 1,000 mls @ 125 mls/hr IV .Q8H [facility] Stop: 12/18/17 15:14 Last Admin: 10/20/17 06:25 Dose: 125 mls/hr Vancomycin HCl 1 gm/ Sodium (Chloride) 250 mls @ 165 mls/hr IV Q24H [facility] Stop: 12/19/17 10:59 Last Infusion: 10/20/17 12:36 Dose: Infused Miscellaneous (Vancomycin Iv Per Pharmacy) 1 ea PRN PRN PRN Reason: PROTOCOL Stop: 12/18/17 01:10 Miscellaneous (Clinical Monitoring) 1 [facility] PRN PRN PRN Reason: RENAL Stop: 12/18/17 12:33 Miscellaneous (Probiotic Screen) 1 [facility] PRN PRN PRN Reason: PROTOCOL Stop: 12/18/17 16:25 Lab - Result Diagrams 10/23/17 05:50 10/23/17 05:50 Kidney fnc improving replace K CXR shows worsening B/L infiltrates decrease IVF, switch to D5 W start spironolactone Nutritional Asmnt/Malnutr-PDOC - Dietary Evaluation Malnutrition Findings (Please click <Entered> for more info): Nutritional Asmnt/Malnutrition Start: 10/19/17 15: 37 Text: Status: Complete Freq: Document 10/19/17 15:39 LCHENG (Rec: 10/19/17 15:58 LCHENG [email or web address]) Nutritional Asmnt/Malnutrition Patient General Information Nutritional Screening High Risk Consult Diagnosis sepsis, PNA Pertinent Medical Hx/Surgical Hx HTN, asthma/COPD, CVA/TIA, PUD /GERD Subjective Information Consult received for malnutrition and diet. Pt seen resting in bed, non-verbal, on non-rebreather noted. Pt has PEG noted. Spoke with RN, RN stated TF planned to start today. Current Diet Order/ Nutrition Support no diet order Pertinent Medications D5-0.9%NS, piperacillin Pertinent Labs 10/19 Na 135, K 4.5, Cl 104, BUN 69, Cr 2.0, Glucose 133, ca 8 .0 Nutritional Hx/Data Height 1.6 m Height (Calculated Centimeters) 160.0 Current Weight (lbs) 53.025 kg Weight (Calculated Kilograms) 53.0 Weight (Calculated Grams) 14242.9 [place] Body Weight 115 % [place] Body Weight 101 Body Mass Index (BMI) 20.7 Weight Status Approriate GI Symptoms GI Symptoms None Last BM none Difficult in: None Skin Integrity/Comment: pressure area reddned to right hip and left hip, decubitus ulceration to sacrococcyx skin intact, Zhang 10 Estimated Nutritional Goals BEE in Kcals: Using Current wt Calories/Kcals/Kg 25-30 Kcals Calculated 2922-2769 Protein: Using Current wt Protein g/k.2-1.4 Protein Calculated 64-74 Fluid: ml 1325-1590ml (1ml/kcal) Nutritional Problem 1. Problem Problem increased nutrition needs ( calorie and protein) Etiology increased metabolic demand and energy expenditure Signs/Symptoms: dx of PNA and sepsis and impaired skin integrity Malnutrition Alert Protein-Calorie Malnutrition N/A Is there a minimum of two criteria No selected? Query Text:Check all the applicable criteria. A minimum of two criteria are recommended for diagnosis of either severe or non-severe malnutrition. Intervention/Recommendation Comments 1. Recocommend to start TF Nutren Pulmonary at 20ml/hr for first 24 hours, increased to goal rate of 40ml/hr as tolerated. This will provide 1440kcal, 65g protein and 750ml free water, meeting 100% of nutritional needs. 2. Monitor TF rate, tolerance, wt daily, skin integrity and labs 3. F/U as high risk in 2-3 days, 10/21-10/22 Expected Outcomes/Goals Expected Outcomes/Goals 1. Pt to meet at least 75% of nutritional needs via nutrition support with tolerance 2. Wt stability, skin to remain intact, labs to approach WNL.
[2017-10-23] MEDS: Potassium Chloride Elixir 20 mEq /15 mL UDC GT SCH (16:24)
[2017-10-23 16:38] LABS: ANION GAP 9.1 (7.0-16.0); BUN - UREA NITROGEN 24 mg/dL (7-25); CALCIUM SERUM 8.1 mg/dL (8.6-10.3); CARBON DIOXIDE 26.8 mEq/L (21.0-31.0); CHLORIDE 115 mEq/L (98-107); CREATININE - SERUM 0.3 mg/dL (0.6-1.2); GLUCOSE 132 mg/dL (70-105); SODIUM SERUM 148 mEq/L (136-145)
[2017-10-23 16:49] LABS: POTASSIUM SERUM 2.9 mEq/L (3.5-5.1)
--- NOTE | 2017-10-23 23:54 | Progress Notes ---
DATE: 10/23/2017 PROBLEM LIST: 1. Sepsis. 2. Left-sided pneumonia. 3. Encephalopathy and also continues to do high flow oxygen. SYMPTOMS: The patient is not appropriately responding though opens eyes. No respiratory distress, etc. PHYSICAL EXAMINATION: VITAL SIGNS: The patient's temperature is 98.0, blood pressure 115/80, saturation 99. NECK: Veins not visualized. CHEST: Shows diminished air entry with occasional rhonchi. HEART: Regular. ABDOMEN: Soft, nontender. LABORATORY DATA: The patient's white count is 19.8. Sodium is 150, potassium is 2. ASSESSMENT: The patient clinically not much changed or significantly improved. PLANS AND SUGGESTIONS: We will continue current treatment. She might require acute long-term care because of respiratory failure, extensive pneumonia on the left side and go from there. JOB# [id number]
[2017-10-24] MEDS: Albuterol/Ipratropium Neb 3 ML AERS HHN SCH ×5 (02:32→19:00)
[2017-10-24] MEDS: Meropenem 500 MG in Sodium Chloride 0.9% 100 ML IV SCH ×3 (05:30→21:52)
[2017-10-24] MEDS: Budesonide 0.5 Mg/2 mL Ud HHN SCH ×2 (07:19→19:15)
[2017-10-24 08:16] LABS: HEMATOCRIT 28.3 % (41.0-60); HEMOGLOBIN 9.6 gm/dL (12-16); MEAN CELL VOLUME 87.8 fl (81-100); MEAN CORPUSCULAR HEMOGLOBIN 29.8 pg (27.0-31.0); MEAN PLATELET VOLUME 7.9 fl; PLATELET COUNT 307 Th/cmm (150-400); RED BLOOD COUNT 3.23 Mil/cmm (3.80-5.20); RED CELL DISTRIBUTION WIDTH 15.7 % (11.5-20.0)
[2017-10-24 08:19] LABS: WHITE BLOOD COUNT 16.7 Th/cmm (4.8-10.8)
[2017-10-24 08:42] LABS: ANION GAP 11.6 (7.0-16.0); BAND NEUTROPHILE 4 % (0-10); BASOPHIL 1 % (0-3); BUN - UREA NITROGEN 23 mg/dL (7-25); CALCIUM SERUM 8.1 mg/dL (8.6-10.3); CARBON DIOXIDE 26.5 mEq/L (21.0-31.0); CHLORIDE 114 mEq/L (98-107); CREATININE - SERUM 0.3 mg/dL (0.6-1.2); GLUCOSE 140 mg/dL (70-105); LYMPHOCYTE 5 % (20-50); MONOCYTE 5 % (2-10); NEUTROPHILS 85 % (40-80); PLATELET ESTIMATE ADEQUATE (NORMAL); POTASSIUM SERUM 3.1 mEq/L (3.5-5.1); SODIUM SERUM 149 mEq/L (136-145); TOTAL CELLS COUNTED 100
[2017-10-24] MEDS: carBAMazepine 200 mg/10 mL UDC GT SCH ×2 (08:45→17:31)
[2017-10-24] MEDS: Potassium Chloride Elixir 20 mEq /15 mL UDC GT SCH (08:46)
--- NOTE | 2017-10-24 12:32 | Infectious Disease Prog Note ---
Infectious Disease Subjective - Review of Systems Service Date: 10/24/17 Subjective: no change, no fever. Infectious Disease Objective - Results Result Diagrams: 10/24/17 08:00 10/24/17 08:00 Recent Labs: Laboratory Last Values WBC 16.7 Th/cmm (4.8-10.8) H 10/24/17 08:00 RBC 3.23 Mil/cmm (3.80-5.20) L 10/24/17 08:00 Hgb 9.6 gm/dL (12-16) L 10/24/17 08:00 Hct 28.3 % (41.0-60) L 10/24/17 08:00 MCV 87.8 fl (81-100) 10/24/17 08:00 MCH 29.8 pg (27.0-31.0) 10/24/17 08:00 MCHC Differential 34.0 pg (28.0-36.0) 10/24/17 08:00 RDW 15.7 % (11.5-20.0) 10/24/17 08:00 Plt Count 307 Th/cmm (150-400) 10/24/17 08:00 MPV 7.9 fl 10/24/17 08:00 Neutrophils % [employer] 10/24/17 08:00 Band Neutrophils % 4 % (0-10) 10/24/17 08:00 Lymphocytes % [employer] 10/24/17 08:00 Monocytes % [employer] 10/24/17 08:00 Eosinophils % [employer] 10/24/17 08:00 Basophils % [employer] 10/24/17 08:00 Neutrophils (Manual) 85 % (40-80) H 10/24/17 08:00 Lymphocytes 5 % (20-50) L 10/24/17 08:00 Monocytes 5 % (2-10) 10/24/17 08:00 Eosinophils 1 % (0-5) 10/20/17 04:10 Basophils 1 % (0-3) 10/24/17 08:00 Hypochromia 1+ 10/20/17 04:10 Platelet Estimate ADEQUATE (NORMAL) 10/24/17 08:00 Eos Smear Source URINE 10/20/17 08:50 Eos Smear Total Cells FEW EOSINOPHILS SEEN (NONE SEEN) 10/20/17 08:50 PT 11.5 SECONDS (9.5-11.5) 10/18/17 22:00 INR 1.10 (0.5-1.4) 10/18/17 22:00 Specimen Source Arterial 10/21/17 08:30 Sample Site RB 10/21/17 08:30 pH 7.47 (7.35-7.45) H 10/21/17 08:30 pCO2 29.0 mmHg (35.0-45.0) L 10/21/17 08:30 pO2 64.0 mmHg (80.0-100.0) L 10/21/17 08:30 HCO3 23.6 mEq/L (20.0-26.0) 10/21/17 08:30 Base Excess -1.6 mEq/L (-3.0-3.0) 10/21/17 08:30 O2 Saturation 93.0 % (92.0-100.0) 10/21/17 08:30 Vasquez Test NA 10/21/17 08:30 Vent Rate 12 10/21/17 08:30 Inspired O2 45 10/21/17 08:30 Tidal Volume 350 10/21/17 08:30 PEEP 4 10/21/17 08:30 Pressure (ins/psv/peep) NA 10/21/17 08:30 Critical Value SH 10/21/17 08:30 Sodium 149 mEq/L (136-145) H 10/24/17 08:00 Potassium 3.1 mEq/L (3.5-5.1) L 10/24/17 08:00 Chloride 114 mEq/L (98-107) H 10/24/17 08:00 Carbon Dioxide 26.5 mEq/L (21.0-31.0) 10/24/17 08:00 Anion Gap 11.6 (7.0-16.0) 10/24/17 08:00 BUN 23 mg/dL (7-25) 10/24/17 08:00 Creatinine 0.3 mg/dL (0.6-1.2) L 10/24/17 08:00 Est GFR ( Amer) TNP 10/24/17 08:00 Est GFR (Non-Af Amer) TNP 10/24/17 08:00 BUN/Creatinine Ratio 76.7 10/24/17 08:00 Glucose 140 mg/dL (70-105) H 10/24/17 08:00 Whole Bld Lactic Acid 3.67 mmol/L (0.60-1.99) H* 10/19/17 07:30 Uric Acid 4.1 mg/dL (2.3-6.6) 10/20/17 04:10 Calcium 8.1 mg/dL (8.6-10.3) L 10/24/17 08:00 Magnesium 2.0 mg/dL (1.9-2.7) 10/22/17 05:21 Total Bilirubin 0.5 mg/dL (0.3-1.0) 10/20/17 04:10 AST 19 U/L (13-39) 10/20/17 04:10 ALT 13 U/L (7-52) 10/20/17 04:10 Alkaline Phosphatase 34 U/L (34-104) 10/20/17 04:10 Ammonia 33 umol/L (16-53) 10/20/17 04:10 Creatine Kinase 136 U/L (30-223) 10/18/17 22:00 Troponin I 0.07 ng/mL (0.01-0.05) H* 10/18/17 22:00 B-Natriuretic Peptide 275.0 pg/mL (5.0-100.0) H 10/18/17 22:00 Total Protein 5.4 gm/dL (6.0-8.3) L 10/20/17 04:10 Albumin 2.6 gm/dL (3.7-5.3) L 10/20/17 04:10 Globulin 2.8 gm/dL 10/20/17 04:10 Albumin/Globulin Ratio 0.9 (1.0-1.8) L 10/20/17 04:10 Triglycerides 130 mg/dL (<150) 10/18/17 22:00 Cholesterol 111 mg/dL (<200) 10/18/17 22:00 LDL Cholesterol Direct 54 mg/dL (75-193) L 10/18/17 22:00 HDL Cholesterol 37 mg/dL (23-92) 10/18/17 22:00 Amylase 36 U/L (29-103) 10/18/17 22:00 Lipase 6 U/L (11-82) L 10/18/17 22:00 TSH 4.53 uIU/ml (0.34-5.60) 10/19/17 04:40 Urine Source RANDOM 10/19/17 06:30 Urine Color YELLOW 10/19/17 06:30 Urine Clarity CLOUDY (CLEAR) H 10/19/17 06:30 Urine pH 8.5 (4.6 - 8.0) 10/19/17 06:30 Ur Specific Mck[place]rick 1.015 (1.005-1.030) 10/19/17 06:30 Urine Protein >=300 mg/dL (NEGATIVE) 10/19/17 06:30 Urine Glucose (UA) NEGATIVE mg/dL (NEGATIVE) 10/19/17 06:30 Urine Ketones NEGATIVE mg/dL (NEGATIVE) 10/19/17 06:30 Urine Blood MODERATE (NEGATIVE) H 10/19/17 06:30 Urine Nitrate NEGATIVE (NEGATIVE) 10/19/17 06:30 Urine Bilirubin NEGATIVE (NEGATIVE) 10/19/17 06:30 Urine Urobilinogen 0.2 E.U./dL (0.2 - 1.0) 10/19/17 06:30 Ur Leukocyte Esterase LARGE (NEGATIVE) H 10/19/17 06:30 Urine RBC 10-25 /hpf (0-5) H 10/19/17 06:30 Urine WBC >100 /hpf (0-5) H 10/19/17 06:30 Ur Epithelial Cells OCCASIONAL /lpf (FEW) 10/19/17 06:30 Urine Bacteria MANY /hpf (NONE SEEN) H 10/19/17 06:30 Ur Random Sodium 35 mmol/L 10/20/17 07:07 Urine Creatinine 39.0 mg/dl (Not Estab.) 10/20/17 07:07 Urine Microalbumin 351.0 ug/mL (Not Estab.) 10/20/17 07:07 Microalb/Creat Ratio 9.0 10/20/17 07:07 Stool Occult Blood NEGATIVE (NEGATIVE) 10/24/17 06:00 Vancomycin Trough 10.2 ug/mL (10-20) 10/24/17 08:00 Random Vancomycin 5.4 ug/mL (5.0-40.0) 10/20/17 04:10 Blood Type O POSITIVE 10/20/17 07:30 Antibody Screen NEGATIVE 10/20/17 07:30 Crossmatch See Detail 10/20/17 07:30 - Physical Exam Vitals and I&O: Vital Signs Temp 98.1 F 10/24/17 11:36 Pulse 97 10/24/17 11:36 Resp 19 10/24/17 11:36 BP 155/87 10/24/17 11:36 Pulse Ox 98 10/24/17 11:36 Intake & Output 10/23/17 10/24/17 10/24/17 18:59 06:59 18:59 Intake Total 1496 580 Output Total 450 Balance 1496 130 Weight (lbs) 54.431 kg 54.431 kg Intake: Intake, IV Amount 1016 100 Meropenem 500 mg In 100 100 Sodium Chloride 0.9% 100 ml @ 100 mls/hr IV Q8H [facility] Rx#:[id number] Piperacillin Sodium/ 50 Tazobact 3.375 gm In Sodium Chloride 0.9% 50 ml @ 100 mls/hr IV Q8H [facility] Rx#:[id number] Potassium Chloride 30 meq 616 In Dextrose 5% 1,000 ml @ 30 mls/hr IV .Q24H [facility] Rx#:[id number] Vancomycin HCl 0.75 gm In 250 Sodium Chloride 0.9% 250 ml @ 165 mls/hr IV Q12H [facility] Rx#:[id number] Oral 0 Tube Feeding 480 480 Output: Urine 450 Other: # Bowel Movements 2 Stool Characteristics Soft Soft Soft Active Medications: Current Medications Acetaminophen (Tylenol 650mg/20.3ml Suspension) 500 mg GT Q4H PRN PRN Reason: Pain (Moderate) Stop: 12/18/17 21:04 Last Admin: 10/21/17 12:25 Dose: 500 mg Acetaminophen (Tylenol 650mg/20.3ml Suspension) 325 mg GT Q4H PRN PRN Reason: Pain or Fever >101 Stop: 12/18/17 21:05 Albuterol Sulfate (Albuterol 2.5mg/3ml Neb Ud) 2.5 mg HHN Q4H PRN PRN Reason: Wheezing Stop: 12/18/17 01:25 Last Admin: 10/19/17 18:52 Dose: 2.5 mg Albuterol/Ipratropium (Duoneb Neb) 3 ml HHN Q4HRT [facility] Stop: 12/19/17 02:59 Last Admin: 10/24/17 07:19 Dose: 3 ml Bisacodyl (Dulcolax 10 Mg Supp) 10 mg RC DAILY PRN PRN Reason: Constipation Stop: 12/18/17 20:52 Budesonide (Pulmicort) 0.5 mg HHN BIDRT EZEKIEL Stop: 12/19/17 06:59 Last Admin: 10/24/17 07:19 Dose: 0.5 mg Carbamazepine (Tegretol) 200 mg GT BID EZEKIEL PRN Reason: Protocol Stop: 12/19/17 08:59 Last Admin: 10/24/17 08:45 Dose: 200 mg Hydralazine HCl (Apresoline 20 Mg/Ml) 10 mg IV Q6HR PRN PRN Reason: SBP >160 Stop: 12/20/17 10:38 Last Admin: 10/22/17 16:34 Dose: 10 mg Potassium Chloride 30 meq/ (Dextrose) 1,015 mls @ 30 mls/hr IV .Q24H EZEKIEL Stop: 12/21/17 13:30 Last Admin: 10/23/17 13:52 Dose: 30 mls/hr Meropenem 500 mg/ Sodium (Chloride) 100 mls @ 100 mls/hr IV Q8H EZEKIEL Stop: 12/22/17 12:59 Last Admin: 10/24/17 05:30 Dose: 100 mls/hr Miscellaneous (Clinical Monitoring) 1 ea PRN PRN PRN Reason: RENAL Stop: 12/18/17 12:33 Miscellaneous (Probiotic Screen) 1 ea PRN PRN PRN Reason: PROTOCOL Stop: 12/18/17 16:25 Potassium Chloride (Potassium Chloride Elixir) 30 meq GT DAILY EZEKIEL Stop: 12/22/17 15:59 Last Admin: 10/24/17 08:46 Dose: 30 meq Spironolactone (Aldactone) 25 mg PO BID EZEKIEL Stop: 12/21/17 16:59 Last Admin: 10/24/17 08:46 Dose: 25 mg General: no acute distress, well developed, well nourished HEENT: atraumatic, normocephalic, PERRLA, EOMI, moist mucous membrane Neck: supple, no thyromegaly Cardiovascular: S1S2, regular Lungs: clear to auscultation bilaterally, clear to percussion Abdomen: soft, no tender, no distended, no rebound Extremities: no cyanosis, no clubbing, no edema Neurological: other (confused.) Skin: intact - Procedures Procedures: Procedures Procedure Code Date ASSISTANCE WITH RESPIRATORY VENTILATION, 24-96 HRS, CPAP [id number] 10/18/[address] GASTROSTOMY TUBE 65660 08/28/17 INSERTION OF FEEDING DEVICE INTO STOMACH, ENDO [id number] 08/28/17 POS AIRWAY PRESSURE CPAP 56256 10/18/17 Infectious Disease Assmt/Plan - Assessment Assessment: 1. Sepsis. Septic shock. Severe sepsis. Lactic acidemia. Improved. 2. Hypotension, multifactorial including sepsis and cardiogenic. Improved. 3. UTI, complicated. Proteus. 4. Pneumonia. ESBL E coli 5. Altered mental status. Multifactorial. 6. Respiratory failure. On BiPAP. 7. Dementia. 8. Protein calorie malnutrition. 9. Acute failure. - Plan Plan: Continue meropenem. Nutritional Asmnt/Malnutr-PDOC - Dietary Evaluation Malnutrition Findings (Please click <Entered> for more info): Nutritional Asmnt/Malnutrition Start: 10/19/17 15: 37 Text: Status: Complete Freq: Document 10/19/17 15:39 [email or web address] (Rec: 10/19/17 15:58 [email or web address] Nutritional Asmnt/Malnutrition Patient General Information Nutritional Screening High Risk Consult Diagnosis sepsis, PNA Pertinent Medical Hx/Surgical Hx HTN, asthma/COPD, CVA/TIA, PUD /GERD Subjective Information Consult received for malnutrition and diet. Pt seen resting in bed, non-verbal, on non-rebreather noted. Pt has PEG noted. Spoke with RN, RN stated TF planned to start today. Current Diet Order/ Nutrition Support no diet order Pertinent Medications D5-0.9%NS, piperacillin Pertinent Labs 10/19 Na 135, K 4.5, Cl 104, BUN 69, Cr 2.0, Glucose 133, ca 8 .0 Nutritional Hx/Data Height 1.6 m Height (Calculated Centimeters) 160.0 Current Weight (lbs) 53.025 kg Weight (Calculated Kilograms) 53.0 Weight (Calculated Grams) 24312.9 [place] Body Weight 115 % Bart[place] Body Weight 101 Body Mass Index (BMI) 20.7 Weight Status Approriate GI Symptoms GI Symptoms None Last BM none Difficult in: None Skin Integrity/Comment: pressure area reddned to right hip and left hip, decubitus ulceration to sacrococcyx skin intact, Zhang 10 Estimated Nutritional Goals BEE in Kcals: Using Current wt Calories/Kcals/Kg 25-30 Kcals Calculated 4920-7947 Protein: Using Current wt Protein g/k.2-1.4 Protein Calculated 64-74 Fluid: ml 1325-1590ml (1ml/kcal) Nutritional Problem 1. Problem Problem increased nutrition needs ( calorie and protein) Etiology increased metabolic demand and energy expenditure Signs/Symptoms: dx of PNA and sepsis and impaired skin integrity Malnutrition Alert Protein-Calorie Malnutrition N/A Is there a minimum of two criteria No selected? Query Text:Check all the applicable criteria. A minimum of two criteria are recommended for diagnosis of either severe or non-severe malnutrition. Intervention/Recommendation Comments 1. Recocommend to start TF Nutren Pulmonary at 20ml/hr for first 24 hours, increased to goal rate of 40ml/hr as tolerated. This will provide 1440kcal, 65g protein and 750ml free water, meeting 100% of nutritional needs. 2. Monitor TF rate, tolerance, wt daily, skin integrity and labs 3. F/U as high risk in 2-3 days, 10/21-10/22 Expected Outcomes/Goals Expected Outcomes/Goals 1. Pt to meet at least 75% of nutritional needs via nutrition support with tolerance 2. Wt stability, skin to remain intact, labs to approach WNL.
--- NOTE | 2017-10-24 14:35 | General Progress Note ---
Subjective - Review of Systems Service Date: 10/24/17 Subjective: obtunded, on VM Objective - Results Result Diagrams: 10/24/17 08:00 10/24/17 08:00 Recent Labs: Laboratory Last Values WBC 16.7 Th/cmm (4.8-10.8) H 10/24/17 08:00 RBC 3.23 Mil/cmm (3.80-5.20) L 10/24/17 08:00 Hgb 9.6 gm/dL (12-16) L 10/24/17 08:00 Hct 28.3 % (41.0-60) L 10/24/17 08:00 MCV 87.8 fl (81-100) 10/24/17 08:00 MCH 29.8 pg (27.0-31.0) 10/24/17 08:00 MCHC Differential 34.0 pg (28.0-36.0) 10/24/17 08:00 RDW 15.7 % (11.5-20.0) 10/24/17 08:00 Plt Count 307 Th/cmm (150-400) 10/24/17 08:00 MPV 7.9 fl 10/24/17 08:00 Neutrophils % MECHANIC RECOVERY 10/24/17 08:00 Band Neutrophils % 4 % (0-10) 10/24/17 08:00 Lymphocytes % MECHANIC RECOVERY 10/24/17 08:00 Monocytes % MECHANIC RECOVERY 10/24/17 08:00 Eosinophils % MECHANIC RECOVERY 10/24/17 08:00 Basophils % MECHANIC RECOVERY 10/24/17 08:00 Neutrophils (Manual) 85 % (40-80) H 10/24/17 08:00 Lymphocytes 5 % (20-50) L 10/24/17 08:00 Monocytes 5 % (2-10) 10/24/17 08:00 Eosinophils 1 % (0-5) 10/20/17 04:10 Basophils 1 % (0-3) 10/24/17 08:00 Hypochromia 1+ 10/20/17 04:10 Platelet Estimate ADEQUATE (NORMAL) 10/24/17 08:00 Eos Smear Source URINE 10/20/17 08:50 Eos Smear Total Cells FEW EOSINOPHILS SEEN (NONE SEEN) 10/20/17 08:50 PT 11.5 SECONDS (9.5-11.5) 10/18/17 22:00 INR 1.10 (0.5-1.4) 10/18/17 22:00 Specimen Source Arterial 10/21/17 08:30 Sample Site RB 10/21/17 08:30 pH 7.47 (7.35-7.45) H 10/21/17 08:30 pCO2 29.0 mmHg (35.0-45.0) L 10/21/17 08:30 pO2 64.0 mmHg (80.0-100.0) L 10/21/17 08:30 HCO3 23.6 mEq/L (20.0-26.0) 10/21/17 08:30 Base Excess -1.6 mEq/L (-3.0-3.0) 10/21/17 08:30 O2 Saturation 93.0 % (92.0-100.0) 10/21/17 08:30 Vasquez Test NA 10/21/17 08:30 Vent Rate 12 10/21/17 08:30 Inspired O2 45 10/21/17 08:30 Tidal Volume 350 10/21/17 08:30 PEEP 4 10/21/17 08:30 Pressure (ins/psv/peep) NA 10/21/17 08:30 Critical Value SH 10/21/17 08:30 Sodium 149 mEq/L (136-145) H 10/24/17 08:00 Potassium 3.1 mEq/L (3.5-5.1) L 10/24/17 08:00 Chloride 114 mEq/L (98-107) H 10/24/17 08:00 Carbon Dioxide 26.5 mEq/L (21.0-31.0) 10/24/17 08:00 Anion Gap 11.6 (7.0-16.0) 10/24/17 08:00 BUN 23 mg/dL (7-25) 10/24/17 08:00 Creatinine 0.3 mg/dL (0.6-1.2) L 10/24/17 08:00 Est GFR ( Amer) TNP 10/24/17 08:00 Est GFR (Non-Af Amer) TNP 10/24/17 08:00 BUN/Creatinine Ratio 76.7 10/24/17 08:00 Glucose 140 mg/dL (70-105) H 10/24/17 08:00 Whole Bld Lactic Acid 3.67 mmol/L (0.60-1.99) H* 10/19/17 07:30 Uric Acid 4.1 mg/dL (2.3-6.6) 10/20/17 04:10 Calcium 8.1 mg/dL (8.6-10.3) L 10/24/17 08:00 Magnesium 2.0 mg/dL (1.9-2.7) 10/22/17 05:21 Total Bilirubin 0.5 mg/dL (0.3-1.0) 10/20/17 04:10 AST 19 U/L (13-39) 10/20/17 04:10 ALT 13 U/L (7-52) 10/20/17 04:10 Alkaline Phosphatase 34 U/L (34-104) 10/20/17 04:10 Ammonia 33 umol/L (16-53) 10/20/17 04:10 Creatine Kinase 136 U/L (30-223) 10/18/17 22:00 Troponin I 0.07 ng/mL (0.01-0.05) H* 10/18/17 22:00 B-Natriuretic Peptide 275.0 pg/mL (5.0-100.0) H 10/18/17 22:00 Total Protein 5.4 gm/dL (6.0-8.3) L 10/20/17 04:10 Albumin 2.6 gm/dL (3.7-5.3) L 10/20/17 04:10 Globulin 2.8 gm/dL 10/20/17 04:10 Albumin/Globulin Ratio 0.9 (1.0-1.8) L 10/20/17 04:10 Triglycerides 130 mg/dL (<150) 10/18/17 22:00 Cholesterol 111 mg/dL (<200) 10/18/17 22:00 LDL Cholesterol Direct 54 mg/dL (75-193) L 10/18/17 22:00 HDL Cholesterol 37 mg/dL (23-92) 10/18/17 22:00 Amylase 36 U/L (29-103) 10/18/17 22:00 Lipase 6 U/L (11-82) L 10/18/17 22:00 TSH 4.53 uIU/ml (0.34-5.60) 10/19/17 04:40 Urine Source RANDOM 10/19/17 06:30 Urine Color YELLOW 10/19/17 06:30 Urine Clarity CLOUDY (CLEAR) H 10/19/17 06:30 Urine pH 8.5 (4.6 - 8.0) 10/19/17 06:30 Ur Specific [place] 1.015 (1.005-1.030) 10/19/17 06:30 Urine Protein >=300 mg/dL (NEGATIVE) 10/19/17 06:30 Urine Glucose (UA) NEGATIVE mg/dL (NEGATIVE) 10/19/17 06:30 Urine Ketones NEGATIVE mg/dL (NEGATIVE) 10/19/17 06:30 Urine Blood MODERATE (NEGATIVE) H 10/19/17 06:30 Urine Nitrate NEGATIVE (NEGATIVE) 10/19/17 06:30 Urine Bilirubin NEGATIVE (NEGATIVE) 10/19/17 06:30 Urine Urobilinogen 0.2 E.U./dL (0.2 - 1.0) 10/19/17 06:30 Ur Leukocyte Esterase LARGE (NEGATIVE) H 10/19/17 06:30 Urine RBC 10-25 /hpf (0-5) H 10/19/17 06:30 Urine WBC >100 /hpf (0-5) H 10/19/17 06:30 Ur Epithelial Cells OCCASIONAL /lpf (FEW) 10/19/17 06:30 Urine Bacteria MANY /hpf (NONE SEEN) H 10/19/17 06:30 Ur Random Sodium 35 mmol/L 10/20/17 07:07 Urine Creatinine 39.0 mg/dl (Not Estab.) 10/20/17 07:07 Urine Microalbumin 351.0 ug/mL (Not Estab.) 10/20/17 07:07 Microalb/Creat Ratio 9.0 10/20/17 07:07 Stool Occult Blood NEGATIVE (NEGATIVE) 10/24/17 06:00 Vancomycin Trough 10.2 ug/mL (10-20) 10/24/17 08:00 Random Vancomycin 5.4 ug/mL (5.0-40.0) 10/20/17 04:10 Blood Type O POSITIVE 10/20/17 07:30 Antibody Screen NEGATIVE 10/20/17 07:30 Crossmatch See Detail 10/20/17 07:30 - Physical Exam Vitals and I&O: Vital Signs Temp 98.1 F 10/24/17 11:36 Pulse 108 10/24/17 12:35 Resp 20 10/24/17 12:35 BP 155/87 10/24/17 11:36 Pulse Ox 96 10/24/17 12:35 Intake & Output 10/23/17 10/24/17 10/24/17 18:59 06:59 18:59 Intake Total 1496 680 Output Total 450 Balance 1496 230 Weight (lbs) 54.431 kg 54.431 kg Intake: Intake, IV Amount 1016 200 Meropenem 500 mg In 100 200 Sodium Chloride 0.9% 100 ml @ 100 mls/hr IV Q8H COUNTS INCLUDE 234 BEDS AT THE [facility] Rx#:[id number] Piperacillin Sodium/ 50 Tazobact 3.375 gm In Sodium Chloride 0.9% 50 ml @ 100 mls/hr IV Q8H COUNTS INCLUDE 234 BEDS AT THE [facility] Rx#:[id number] Potassium Chloride 30 meq 616 In Dextrose 5% 1,000 ml @ 30 mls/hr IV .Q24H COUNTS INCLUDE 234 BEDS AT THE [facility] Rx#:[id number] Vancomycin HCl 0.75 gm In 250 Sodium Chloride 0.9% 250 ml @ 165 mls/hr IV Q12H COUNTS INCLUDE 234 BEDS AT THE [facility] Rx#:[id number] Oral 0 Tube Feeding 480 480 Output: Urine 450 Other: # Bowel Movements 2 Stool Characteristics Soft Soft Soft Active Medications: Current Medications Acetaminophen (Tylenol 650mg/20.3ml Suspension) 500 mg GT Q4H PRN PRN Reason: Pain (Moderate) Stop: 12/18/17 21:04 Last Admin: 10/21/17 12:25 Dose: 500 mg Acetaminophen (Tylenol 650mg/20.3ml Suspension) 325 mg GT Q4H PRN PRN Reason: Pain or Fever >101 Stop: 12/18/17 21:05 Albuterol Sulfate (Albuterol 2.5mg/3ml Neb Ud) 2.5 mg HHN Q4H PRN PRN Reason: Wheezing Stop: 12/18/17 01:25 Last Admin: 10/19/17 18:52 Dose: 2.5 mg Albuterol/Ipratropium (Duoneb Neb) 3 ml HHN Q4HRT COUNTS INCLUDE 234 BEDS AT THE [facility] Stop: 12/19/17 02:59 Last Admin: 10/24/17 12:32 Dose: 3 ml Bisacodyl (Dulcolax 10 Mg Supp) 10 mg RC DAILY PRN PRN Reason: Constipation Stop: 12/18/17 20:52 Budesonide (Pulmicort) 0.5 mg HHN BIDRT EZEKIEL Stop: 12/19/17 06:59 Last Admin: 10/24/17 07:19 Dose: 0.5 mg Carbamazepine (Tegretol) 200 mg GT BID EZEKIEL PRN Reason: Protocol Stop: 12/19/17 08:59 Last Admin: 10/24/17 08:45 Dose: 200 mg Hydralazine HCl (Apresoline 20 Mg/Ml) 10 mg IV Q6HR PRN PRN Reason: SBP >160 Stop: 12/20/17 10:38 Last Admin: 10/22/17 16:34 Dose: 10 mg Potassium Chloride 30 meq/ (Dextrose) 1,015 mls @ 30 mls/hr IV .Q24H EZEKIEL Stop: 12/21/17 13:30 Last Admin: 10/23/17 13:52 Dose: 30 mls/hr Meropenem 500 mg/ Sodium (Chloride) 100 mls @ 100 mls/hr IV Q8H EZEKIEL Stop: 12/22/17 12:59 Last Admin: 10/24/17 14:31 Dose: 100 mls/hr Miscellaneous (Clinical Monitoring) 1 ea PRN PRN PRN Reason: RENAL Stop: 12/18/17 12:33 Miscellaneous (Probiotic Screen) 1 ea PRN PRN PRN Reason: PROTOCOL Stop: 12/18/17 16:25 Potassium Chloride (Potassium Chloride Elixir) 30 meq GT DAILY EZEKIEL Stop: 12/22/17 15:59 Last Admin: 10/24/17 08:46 Dose: 30 meq Spironolactone (Aldactone) 25 mg PO BID EZEKIEL Stop: 12/21/17 16:59 Last Admin: 10/24/17 08:46 Dose: 25 mg General: Mild distress HEENT: Atraumatic, Mucous membr. moist/pink Neck: Supple, +2 carotid pulse wo bruit Cardiovascular: Regular rate, Normal S1, Normal S2 Lungs: Other (harsh rhonhci) Abdomen: Bowel sounds, Soft Extremities: no Edema Neurological: Sensation intact Skin: no Rash Psych/Mental Status: Mood NL - Procedures Procedures: Procedures Procedure Code Date ASSISTANCE WITH RESPIRATORY VENTILATION, 24-96 HRS, CPAP [id number] 10/18/[address] GASTROSTOMY TUBE 44317 08/28/17 INSERTION OF FEEDING DEVICE INTO STOMACH, ENDO [id number] 08/28/17 POS AIRWAY PRESSURE CPAP 71631 10/18/17 Assessment/Plan - Assessment Assessment: FLORIDALMA Shock Septic Sepsis 2/2 HAP, Cx UTI ARF on BIPAP Lactic acidosis Severe Malnutrition Hypokalemia Anemia acute on CD decomp CHF - Plan Plan: Lab - Result Diagrams 10/20/17 04:10 10/20/17 04:10 Current Medications Acetaminophen (Tylenol 650mg/20.3ml Suspension) 500 mg GT Q4H PRN PRN Reason: Pain (Moderate) Stop: 12/18/17 21:04 Last Admin: 10/20/17 08:58 Dose: 500 mg Acetaminophen (Tylenol 650mg/20.3ml Suspension) 325 mg GT Q4H PRN PRN Reason: Pain or Fever >101 Stop: 12/18/17 21:05 Albuterol Sulfate (Albuterol 2.5mg/3ml Neb Ud) 2.5 mg HHN Q4H PRN PRN Reason: Wheezing Stop: 12/18/17 01:25 Last Admin: 10/19/17 18:52 Dose: 2.5 mg Albuterol/Ipratropium (Duoneb Neb) 3 ml HHN Q4HRT COUNTS INCLUDE 234 BEDS AT THE [facility] Stop: 12/19/17 02:59 Last Admin: 10/20/17 11:12 Dose: 3 ml Bisacodyl (Dulcolax 10 Mg Supp) 10 mg RC DAILY PRN PRN Reason: Constipation Stop: 12/18/17 20:52 Budesonide (Pulmicort) 0.5 mg HHN BIDRT COUNTS INCLUDE 234 BEDS AT THE [facility] Stop: 12/19/17 06:59 Last Admin: 10/20/17 06:49 Dose: 0.5 mg Carbamazepine (Tegretol) 200 mg GT BID EZEKIEL PRN Reason: Protocol Stop: 12/19/17 08:59 Last Admin: 10/20/17 08:59 Dose: 200 mg Piperacillin Sod/Tazobactam (Sod 3.375 gm/ Sodium Chloride) 50 mls @ 100 mls/ hr IV Q8H COUNTS INCLUDE 234 BEDS AT THE [facility] Stop: 12/18/17 01:59 Last Infusion: 10/20/17 13:00 Dose: Infused Norepinephrine Bitartrate 4 mg (/ Dextrose) 254 mls @ 30.48 mls/hr IV TITR PRN ; Protocol; 8 MCG/MIN PRN Reason: BP MAINTENANCE (PER PROTOCOL) Stop: 12/18/17 12:11 Last Titration: 10/20/17 08:36 Dose: Infused Dextrose/Sodium Chloride (D5-0.9%Ns) 1,000 mls @ 125 mls/hr IV .Q8H EZEKIEL Stop: 12/18/17 15:14 Last Admin: 10/20/17 06:25 Dose: 125 mls/hr Vancomycin HCl 1 gm/ Sodium (Chloride) 250 mls @ 165 mls/hr IV Q24H EZEKIEL Stop: 12/19/17 10:59 Last Infusion: 10/20/17 12:36 Dose: Infused Miscellaneous (Vancomycin Iv Per Pharmacy) 1 ea PRN PRN PRN Reason: PROTOCOL Stop: 12/18/17 01:10 Miscellaneous (Clinical Monitoring) 1 [facility] PRN PRN PRN Reason: RENAL Stop: 12/18/17 12:33 Miscellaneous (Probiotic Screen) 1 [facility] PRN PRN PRN Reason: PROTOCOL Stop: 12/18/17 16:25 Lab - Result Diagrams 10/24/17 08:00 10/24/17 08:00 Kidney fnc improving replace K CXR shows worsening B/L infiltrates decrease IVF, switch to D5 W start spironolactone Nutritional Asmnt/Malnutr-PDOC - Dietary Evaluation Malnutrition Findings (Please click <Entered> for more info): Nutritional Asmnt/Malnutrition Start: 10/19/17 15: 37 Text: Status: Complete Freq: Document 10/19/17 15:39 LCHENG (Rec: 10/19/17 15:58 LCHENG [email or web address]) Nutritional Asmnt/Malnutrition Patient General Information Nutritional Screening High Risk Consult Diagnosis sepsis, PNA Pertinent Medical Hx/Surgical Hx HTN, asthma/COPD, CVA/TIA, PUD /GERD Subjective Information Consult received for malnutrition and diet. Pt seen resting in bed, non-verbal, on non-rebreather noted. Pt has PEG noted. Spoke with RN, RN stated TF planned to start today. Current Diet Order/ Nutrition Support no diet order Pertinent Medications D5-0.9%NS, piperacillin Pertinent Labs 10/19 Na 135, K 4.5, Cl 104, BUN 69, Cr 2.0, Glucose 133, ca 8 .0 Nutritional Hx/Data Height 1.6 m Height (Calculated Centimeters) 160.0 Current Weight (lbs) 53.025 kg Weight (Calculated Kilograms) 53.0 Weight (Calculated Grams) 63112.9 [place] Body Weight 115 % [place] Body Weight 101 Body Mass Index (BMI) 20.7 Weight Status Approriate GI Symptoms GI Symptoms None Last BM none Difficult in: None Skin Integrity/Comment: pressure area reddned to right hip and left hip, decubitus ulceration to sacrococcyx skin intact, Zhang 10 Estimated Nutritional Goals BEE in Kcals: Using Current wt Calories/Kcals/Kg 25-30 Kcals Calculated 0941-6795 Protein: Using Current wt Protein g/k.2-1.4 Protein Calculated 64-74 Fluid: ml 1325-1590ml (1ml/kcal) Nutritional Problem 1. Problem Problem increased nutrition needs ( calorie and protein) Etiology increased metabolic demand and energy expenditure Signs/Symptoms: dx of PNA and sepsis and impaired skin integrity Malnutrition Alert Protein-Calorie Malnutrition N/A Is there a minimum of two criteria No selected? Query Text:Check all the applicable criteria. A minimum of two criteria are recommended for diagnosis of either severe or non-severe malnutrition. Intervention/Recommendation Comments 1. Recocommend to start TF Nutren Pulmonary at 20ml/hr for first 24 hours, increased to goal rate of 40ml/hr as tolerated. This will provide 1440kcal, 65g protein and 750ml free water, meeting 100% of nutritional needs. 2. Monitor TF rate, tolerance, wt daily, skin integrity and labs 3. F/U as high risk in 2-3 days, 10/21-10/22 Expected Outcomes/Goals Expected Outcomes/Goals 1. Pt to meet at least 75% of nutritional needs via nutrition support with tolerance 2. Wt stability, skin to remain intact, labs to approach WNL.
--- NOTE | 2017-10-25 02:47 | Progress Notes ---
DATE: 10/24/2017 PROBLEMS: 1. Sepsis. 2. Pneumonia. 3. Respiratory failure. 4. History of multiple cerebrovascular accidents. SYMPTOMS: Appears to be awake, trying to verbalize, but no communication could be done. No respiratory distress, etc. PHYSICAL EXAMINATION: VITAL SIGNS: Afebrile, saturation 98 on a Venturi mask. NECK: Veins not visualized. CHEST: Shows diminished air entry with occasional rhonchi. HEART: Regular. LABORATORY DATA: White count is trending down. Sodium is 149, potassium is 3.1. ASSESSMENT: The patient clinically appears to be stable, slightly better. PLANS AND SUGGESTIONS: We will continue Venturi mask, continue IV antibiotic, nocturnal BiPAP, etc., and go from there. JOB# [id number]
--- NOTE | 2017-11-04 04:07 | Discharge Summary ---
DATE OF DISCHARGE: 10/24/2017 HOSPITAL COURSE: This patient is an 87-year-old female, resident of [place], admitted initially to the ICU because of sepsis and septic shock and hypotension and acute UTI, pneumonia, altered mental status, acute respiratory failure, dementia, and also protein-calorie malnutrition and the patient had Nephrology and Pulmonary consultation. The patient was hemodynamically unstable, was given Levophed, and the patient was given IV antibiotics. The patient also had ID consultation with Dr. Luke Villalba and gradually the patient improved and the patient was moved to the floor and the patient initially on admission requiring BiPAP, but later on the patient was put on nasal cannula and the patient was still short of breath, on oxygen, and so the patient's sepsis was stabilized, but still needed continuation of her IV antibiotics and also the oxygen therapy and decision was made to transfer the patient to [facility] where I will be following the patient. FINAL DIAGNOSES: Status post septic shock, status post respiratory failure, and malnutrition. [facility]# [id number]
== END 2017-10-24 22:25 | DRG 871 ==
LOC: ER 21:50 → ICU 22:35 → TELE 10-21 15:36 → MSI 10-24 16:30
PROVIDERS: ADMIT Internal Medicine; ATTEND Internal Medicine
PROC: 5A09457 Assistance with Respiratory Ventilation, 24-96 Consecutive Hours, Continuous Positive Airway Pressure (ICD-10-PCS; principal; 2017-10-19)
PROC: 30233N1 Transfusion of Nonautologous Red Blood Cells into Peripheral Vein, Percutaneous Approach (ICD-10-PCS; 2017-10-20)
DX: A41.2 Sepsis due to unspecified staphylococcus (principal); R65.21 Severe sepsis with septic shock; J96.01 Acute respiratory failure with hypoxia; E43 Unspecified severe protein-calorie malnutrition; I11.0 Hypertensive heart disease with heart failure; J15.5 Pneumonia due to Escherichia coli; G93.40 Encephalopathy, unspecified; N17.9 Acute kidney failure, unspecified; I50.9 Heart failure, unspecified; F03.91 Unspecified dementia, unspecified severity, with behavioral disturbance; R64 Cachexia; N39.0 Urinary tract infection, site not specified; E86.0 Dehydration; D63.8 Anemia in other chronic diseases classified elsewhere; F09 Unspecified mental disorder due to known physiological condition; J44.9 Chronic obstructive pulmonary disease, unspecified; K21.9 Gastro-esophageal reflux disease without esophagitis; B96.4 Proteus (mirabilis) (morganii) as the cause of diseases classified elsewhere; Z66 Do not resuscitate; G40.909 Epilepsy, unspecified, not intractable, without status epilepticus; Z86.73 Personal history of transient ischemic attack (TIA), and cerebral infarction without residual deficits; E87.6 Hypokalemia; Z87.11 Personal history of peptic ulcer disease; Z79.899 Other long term (current) drug therapy; Z93.1 Gastrostomy status; Z82.49 Family history of ischemic heart disease and other diseases of the circulatory system; Z83.3 Family history of diabetes mellitus; Z68.21 Body mass index [BMI] 21.0-21.9, adult
CPT/HCPCS: 36415-UA; 36600-90; 71045-TC; 76770-TC; 80048-TC; 80053-TC; 80061-TC; 80202-TC; 81001-TC; 81015-TC; 82043-90; 82140-TC; 82150-TC; 82270-TC; 82550-TC; 82570-TC; 82803-TC; 83605; 83690-TC; 83735-TC; 83880-TC; 84300-TC; 84443-TC; 84484-TC; 84550-TC; 85007-TC; 85025-TC; 85027-TC; 85610-TC; 86850-TC; 86900-TC; 86901-TC; 86922-TC; 87070; 87086-90; 93005; 94660; 94760; J0360; J1956; J2185; J2543; J3370; J3480; J7030; J7040; J7042; J7070; J7613; P9016; P9046; X6452; Z7610